=== PATIENT | female | born 1950 | race Caucasian/White ===

== ENCOUNTER 2022-07-14 11:30 | Emergency (ER) | payer OTHER ==
--- OUTSIDE RECORDS SUMMARY | 2022-07-14 11:36 | XMS REPORT | Continuity of Care Document ---
:1950 Author Organization [facility] t Address [address] [facility] [address] [place] [id number] Care Team Providers Name Role Phone Elena Darnell Primary Care Physician Shimon Ibarra Attending Clinician Unavailable MYRTLE PEREZ Attending Clinician Unavailable Elisa CLARK, Bolivar Grissom Attending Clinician Cate Paiz LVN Attending Clinician Unavailable SEAN JAIN Attending Clinician Unavailable HILDA GLOVER Attending Clinician Unavailable Only, Ang Db Test Attending Clinician Unavailable Hilda Berumen Attending Clinician Rosa Kingston MA Attending Clinician Unavailable MRYTLE PEREZ M.D. Attending Clinician Unavailable Lab, Adc Fam Pob I Attending Clinician Unavailable Lindy Lau Attending Clinician LINDY SINGH Attending Clinician Unavailable LOVE DAVIDSON Attending Clinician Unavailable Love Davidson PA-C Attending Clinician Payers Payer Name Policy Type Policy Number Effective Date Expiration Date S ource UHC MEDICARE [id number] 2020 ADVANTAGE 00:00:00 [place] [id number] Common [facility] UNITED [id number] 2020 HEALTHCARE 00:00:00 [facility] MEDIC[facility] [id number] 2018 00:00:00 Problems Condition Condition Condition Status Onset Resolution Last Treating Co mments Source Name Details Category Date Date Treatment Clinician Date Hyperlipid Hyperlipid Disease Active 2019-05 M ethodi emia emia 05-15 st 00:00: Hospita 00 l SOB SOB Disease Active 2017-05 Methodi (shortness (shortness 05-18 st of breath) of breath) 00:00: Ho spita 00 l Chest pain Chest pain Disease Active 2017-05 M ethodi 05-18 st 00:00: Hospita 00 l Essential Essential Disease Active 2017-05 Met hodi hypertensi hypertensi 05-18 st on on 00:00: Hospita 00 l Irregular Irregular Disease Active 2016-05 Met hodi heart beat heart beat 14 st 00:00: Hospita 00 l Right hand Right hand Disease Active U nivers pain pain 1-12 ity of 00:00: [address] Branch [id number] Hip pain, Problem Active Comm on left [facility] [id number] Hip pain, Problem Active Co mmon [id number] right [facility] [id number] Dysfunctio Problem Active C ommon [id number] n of left [facility] eustachian - [facility] tube [facility] [id number] Left ear Problem Active Commo n pain [facility] History of History of Problem Resolve UT Obstructiv Obstructiv d Ph ysici e sleep e sleep ans apnea, apnea, adult adult Inflammato Inflammato Problem Active U T ry ry Physici polyarthri polyarthri an s tis tis Vitamin D Vitamin D Problem Active UT deficiency deficiency Ph ysici disease disease ans GERD GERD Problem Active UT (gastroeso (gastroeso Ph ysici phageal phageal ans reflux reflux disease) disease) Hypothyroi Hypothyroi Problem Active U T dism dism Physici ans Hypertensi Hypertensi Problem Active U T on on Physici ans Obesity Obesity Problem Active UT Physici ans Trochanter Trochanter Problem Active U T ic ic Physici bursitis bursitis ans Psoriasis Psoriasis Problem Active UT of nail of nail Physici ans NSAID NSAID Problem Active UT long-term long-term Phys ici use use ans Long-term Long-term Problem Active UT use of use of Physici immunosupp immunosupp an s ressant ressant medication medication Primary Primary Problem Active UT osteoarthr osteoarthr Ph ysici itis of itis of ans both knees both knees Psoriatic Psoriatic Problem Active UT arthritis arthritis Phys ici ans 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 Physic i ans Lumbago Lumbago Problem Active UT Physici ans Pain of Pain of Problem Active UT toe of toe of Physici right foot right foot an s Allergies, Adverse Reactions, Alerts Allergy Allergy Status Severity Reaction(s) Onset Inactive Treating Comm ents Source Name Type Date Date Clinician Sulfa Allergy Active Unknown UT Antibiot to 2 Health ics substanc 00:00: e 00 Ciproflo Allergy Active Unknown 2016-05 UT xacin to 05-26 Health substanc 00:00: e 00 Ciproflo Propensi Active 2016-05 Method i xacin ty to 14 st adverse 00:00: Hospita reaction 00 l s to drug SULFA Drug Active Rash [facility] (SULFONA Class 1-12 ity of MIDE 00:00: [place] ANTIBIOT 00 [facility]) Branch Sulfa Propensi Active Rash Univers (Sulfona ty to 1-12 ity of mide adverse 00:00: [place] Antibiot reaction 00 Medica l ics) s Branch Sulfa Propensi Active Rash Methodi (Sulfona ty to 08-10 st mide adverse 00:00: Hospita Antibiot reaction 00 l ics) s to drug 0 Drug Active Unknown Common allergy [facility] ciproflo ciproflo Active Unknown Commo n xacin xacin [facility] Sulfa Allergy Active UT Drugs to drug Physici (finding ans ) Family History Family Member Diagnosis Comments Start Date Stop Date Source Natural father Heart disease [facility] Natural father Hypertension [facility] Natural mother Diabetes [facility] Natural mother Hypertension [facility] Social History Social Habit Start Date Stop Date Quantity Comments Source [facility] - [facility] Use [facility] Tobacco use and 2022-04-27 2022-04-27 Smokeless tobacco [facility] exposure 00:00:00 00:00:00 non-user Exposure to 2022-04-15 2022-04-25 Not sure [facility] SARS-CoV-2 00:00:00 08:06:00 (event) Alcohol intake 2022-03-13 2022-03-13 Current [facility] 00:00:00 00:00:00 non-drinker of Hospital alcohol (finding) Sex Ass[birth year] [facility] 00:00:00 00:00:00 [facility] Smoking Status Start Date Stop Date Source Never smoked tobacco [facility] Medications Ordered Filled Start Stop Current Ordering Indication Dosage Frequency Signature Comments Components Source Medication Medication Date Date Medication? Clinician (SIG) Name Name cetirizine 2021-05 QD Chew 1 UT (ZyrTEC) 10 2-16 16 (one) time H ealth MG chewable 10:34: 00:00 each day. tablet 11 :00 SUPER B 2021-05 Yes QD Take by UT COMPLEX & C 2-16 mouth 1 Healt h tablet 10:02: (one) time 33 each day. cycloSPORIN 2021-05 Yes Q12H every 12 UT E 2-16 (twelve) Health (Restasis) 10:02: hours. Use 0.05 % 33 as ophthalmic directed emulsion dexlansopra 2021-05 Yes 1 (one) UT zole 2-16 time each Health (Dexilant) 10:02: day at the [address] 33 same time. capsule 1 capsule daily levothyroxi 2021-05 Yes 1 (one) UT ne 2-16 time each Health (Synthroid, 10:02: day at the Levoxyl) 33 same time. 175 MCG 1 tablet tablet daily losartan 2021-05 Yes 1 (one) UT (Cozaar) 25 2-16 time each Hea lth MG tablet 10:02: day at the 33 same time. 1 tablet daily Mirabegron 2021-05 Yes 1 (one) UT ER 2-16 time each Health (Myrbetriq) 10:02: day at the 50 MG 33 same time. tablet 1 tablet sustained-r daily elease 24 hour Zinc 50 MG 2021-05 Yes 50mg 50 mg. 1 UT tablet 2-16 tablet Health 10:02: daily 33 Vitamin D, 2021-05 Yes Take by UT Cholecalcif 2-16 mouth. 4 Heal th alina, 25 10:02: tablets MCG (1000 33 daily UT) tablet MAGNESIUM 2021-05 Yes QD 1 (one) UT PO 2-16 time each Health 10:02: day. 2 33 tablets daily Ascorbic 2021-05 Yes 500mg QD Take 500 UT Acid 2-16 mg by Health (vitamin C) 10:02: mouth 1 500 MG 33 (one) time tablet each day. cetirizine 2021-05 Yes 10mg QD Take 10 mg U T (ZyrTEC) 10 2-16 by mouth 1 He alth MG tablet 10:02: (one) time 33 each day. methotrexat 2021-05 Yes [id number] 10mg Take 4 UT e 2.5 MG 2-16 tablets Health tablet 00:00: (10 mg 00 total) by mouth 1 (one) time per week. meloxicam 2021-05 Yes [id number] 15mg QD Take 1 U T (Mobic) 15 2-16 tablet (15 Hea lth MG tablet 00:00: mg total) 00 by mouth 1 (one) time each day. with food Upadacitini 2021-05 Yes [id number] 15mg QD Take 15 mg UT b ER 2-16 by mouth 1 Health (Rinvoq) 15 00:00: (one) time MG tablet 00 each day. sustained-r elease 24 hour folic acid 2021-05- Yes [id number] 1mg QD Take 1 UT (Folvite) 1 2-16 12-17 tablet (1 He alth MG tablet 00:00: 05:59 mg total) 00 :00 by mouth 1 (one) time each day. TURMERIC 2021-05- No Take by Metho di ROOT 05-[address] EXTRACT 10:01: 00:00 Hospita ORAL 34 :00 l flaxseed 2021-05- No Take by Metho di oil 1,000 05-[address] mg capsule 10:01: 00:00 Hospit a 34 :00 l cetirizine 2021-05 Yes 10mg QD Take 1 Metho di (ZyrTEC) 10 05-13 tablet (10 st MG tablet 09:13: mg total) Hos forrest 47 by mouth l daily. mirabegron 2021-05 Yes 75mg QD Take 75 mg M ethodi (Myrbetriq) 05-[address] 50 mg 09:13: daily. Hospita tablet 47 l extended release 24 hr VITAMIN B 2021-05 Yes Take by Metho di COMPLEX VIT 05-[address] C NO.4 09:12: Hospita (SUPER B 37 l COMPLEX + C ORAL) CYANOCOBALA 2021-05 Yes Take by Met hodi MIN, 05-[address] VITAMIN 09:12: Hospita B-12, 37 l (VITAMIN B-12 ORAL) upadacitini 2021-05 Yes 15mg QD Take 15 mg Methodi b (Rinvoq) 05-[address] 15 mg 09:12: daily. Hospita tablet 37 l extended release 24 hr ER tablet meloxicam 2021- No [id number] TAKE 1 UT (Mobic) 15 02-05 12-16 TABLET BY Hea lth MG tablet 00:00: 00:00 MOUTH 00 :00 EVERY DAY WITH FOOD cycloSPORIN Yes Q12H every 12 UT E 8-15 (twelve) Health (Restasis) 13:53: hours. Use 0.05 % 12 as ophthalmic directed emulsion SUPER B Yes QD Take by UT COMPLEX & C 8-15 mouth 1 Healt h tablet 13:52: (one) time 32 each day. dexlansopra Yes 1 (one) UT zole 8-15 time each Health (Dexilant) 13:52: day at the [address] 32 same time. capsule 1 capsule daily levothyroxi Yes 1 (one) UT ne 8-15 time each Health (Synthroid, 13:52: day at the Levoxyl) 32 same time. 175 MCG 1 tablet tablet daily losartan Yes 1 (one) UT (Cozaar) 25 8-15 time each Hea lth MG tablet 13:52: day at the 32 same time. 1 tablet daily Mirabegron Yes 1 (one) UT ER 8-15 time each Health (Myrbetriq) 13:52: day at the 50 MG 32 same time. tablet 1 tablet sustained-r daily elease 24 hour Zinc 50 MG Yes 50mg 50 mg. 1 UT tablet 8-15 tablet Health 13:52: daily 32 Vitamin D, 0 Yes Take by UT Cholecalcif 8-15 mouth. 4 Heal th alina, 25 13:52: tablets MCG (1000 32 daily UT) tablet MAGNESIUM 2021-0 Yes QD 1 (one) UT PO 8-15 time each Health 13:52: day. 2 32 tablets daily cetirizine 0 Yes QD Chew 1 UT (ZyrTEC) 10 8-15 (one) time He alth MG chewable 13:52: each day. tablet 32 Ascorbic Yes 500mg QD Take 500 UT Acid 8-15 mg by Health (vitamin C) 13:52: mouth 1 500 MG 32 (one) time tablet each day. Upadacitini Yes [id number] 15mg QD Take 15 mg UT b ER 8-15 by mouth 1 Health (Rinvoq) 15 00:00: (one) time MG tablet 00 each day. sustained-r elease 24 hour Upadacitini 2- No [id number] 15mg QD Take 15 mg UT b ER 8-15 12-16 by mouth 1 Health (Rinvoq) 15 00:00: 00:00 (one) time MG tablet 00 :00 each day. sustained-r elease 24 hour doxycycline 2- No [id number] 100mg Q.5D Take 1 UT (Vibramycin 8-15 08-23 capsule ) 100 MG 00:00: 04:59 (100 mg capsule 00 :00 total) by mouth in the morning and 1 capsule (100 mg total) in the evening. Do all this for 7 days. metFORMIN 2021-0 Yes QD 1 (one) UT XR 8-08 time each Health (Glucophage 00:00: day. -XR) 500 MG 00 24 hr tablet metFORMIN 2021-0 Yes QD 1 (one) UT XR 8-08 time each Health (Glucophage 00:00: day. -XR) 500 MG 00 24 hr tablet Secukinumab Yes [id number] Inject 300 UT , 300 MG 7-27 mg Health Dose, 00:00: subcutaneo (Cosentyx 00 us q4 Sensoready, weeks 300 MG,) 150 MG/ML solution auto-inject or Secukinumab 2-0 Yes [id number] Inject 300 UT , 300 MG 7-27 mg Health Dose, 00:00: subcutaneo (Cosentyx 00 us q4 Sensoready, weeks 300 MG,) 150 MG/ML solution auto-inject or Secukinumab 2-0 Yes [id number] Inject 300 UT , 300 MG 7-03 mg Health Dose, 00:00: subcutaneo (Cosentyx 00 us q4 Sensoready, weeks 300 MG,) 150 MG/ML solution auto-inject or meloxicam 2021-0 Yes [id number] TAKE 1 U T (Mobic) 15 6-25 TABLET BY Heal th MG tablet 00:00: MOUTH 00 EVERY DAY WITH FOOD meloxicam 2021-0 Yes TAKE 1 U T (Mobic) 15 6-25 TABLET BY Heal th MG tablet 00:00: MOUTH 00 EVERY DAY WITH FOOD cetirizine 2021-0 Yes QD Chew 1 UT (ZyrTEC) 10 4-07 (one) time He alth MG chewable 11:51: each day. tablet 36 Ascorbic 2021-0 Yes 500mg QD Take 500 UT Acid 4-07 mg by Health (vitamin C) 11:51: mouth 1 500 MG 36 (one) time tablet each day. cetirizine 2-0 Yes QD Chew 1 UT (ZyrTEC) 10 4-07 (one) time He alth MG chewable 11:51: each day. tablet 36 Ascorbic 2022-0 Yes 500mg QD Take 500 UT Acid 4-07 mg by Health (vitamin C) 11:51: mouth 1 500 MG 36 (one) time tablet each day. SUPER B 2021-0 Yes QD Take by UT COMPLEX & C 4-07 mouth 1 Healt h tablet 11:50: (one) time 51 each day. Mirabegron 2-0 Yes 1 (one) UT ER 4-07 time each Health (Myrbetriq) 11:50: day at the 50 MG 51 same time. tablet 1 tablet sustained-r daily elease 24 hour Zinc 50 MG 2021-0 Yes 50mg 50 mg. 1 UT tablet 4-07 tablet Health 11:50: daily 51 Vitamin D, 2022-0 Yes Take by UT Cholecalcif 4-07 mouth. 4 alina, 11:50: tablets MCG (1000 51 daily UT) tablet SUPER B 0 Yes QD Take by UT COMPLEX & C 4-07 mouth 1 Healt h tablet 11:50: (one) time 51 each day. Mirabegron 0 Yes 1 (one) UT ER 4-07 time each Health (Myrbetriq) 11:50: day at the 50 MG 51 same time. tablet 1 tablet sustained-r daily elease 24 hour Zinc 50 MG Yes 50mg 50 mg. 1 UT tablet 4-07 tablet Health 11:50: daily 51 Vitamin D, Yes Take by UT Cholecalcif 4-07 mouth. 4 alina, 11:50: tablets MCG (1000 51 daily UT) tablet cycloSPORIN 0 Yes Q12H every 12 UT E 4-07 (twelve) Health (Restasis) 11:49: hours. Use 0.05 % 16 as ophthalmic directed emulsion dexlansopra 0 Yes 1 (one) UT zole 4-07 time each Health (Dexilant) 11:49: day at the [address] 16 same time. capsule 1 capsule daily levothyroxi 0 Yes 1 (one) UT ne 4-07 time each Health (Synthroid, 11:49: day at the Levoxyl) 16 same time. 175 MCG 1 tablet tablet daily losartan Yes 1 (one) UT (Cozaar) 25 4-07 time each Hea lth MG tablet 11:49: day at the 16 same time. 1 tablet daily MAGNESIUM 0 Yes 2 tablets UT PO 4-07 daily Health 11:49: 16 cycloSPORIN 2021-0 Yes Q12H every 12 UT E 4-07 (twelve) Health (Restasis) 11:49: hours. Use 0.05 % 16 as ophthalmic directed emulsion dexlansopra 0 Yes 1 (one) UT zole 4-07 time each Health (Dexilant) 11:49: day at the [address] 16 same time. capsule 1 capsule daily levothyroxi 2021-0 Yes 1 (one) UT ne 4-07 time each Health (Synthroid, 11:49: day at the Levoxyl) 16 same time. 175 MCG 1 tablet tablet daily losartan Yes 1 (one) UT (Cozaar) 25 4-07 time each Hea lth MG tablet 11:49: day at the 16 same time. 1 tablet daily MAGNESIUM 0 Yes 2 tablets UT PO 4-07 daily Health 11:49: 16 meloxicam 0 Yes [id number] TAKE 1 U T (Mobic) 15 3-25 TABLET BY [facility] th MG tablet 00:00: MOUTH 00 EVERY DAY WITH FOOD Mirabegron 2021-0 Yes QD 1 (one) UT ER 2-19 time each Health (Myrbetriq) 00:00: day. 25 MG 00 tablet sustained-r elease 24 hour Mirabegron 2021-0 Yes QD 1 (one) UT ER 2-19 time each Health (Myrbetriq) 00:00: day. 25 MG 00 tablet sustained-r elease 24 hour Mirabegron 2021-0 Yes QD 1 (one) UT ER 2-19 time each Health (Myrbetriq) 00:00: day. 25 MG 00 tablet sustained-r elease 24 hour Mirabegron 2021-0 Yes QD 1 (one) UT ER 2-19 time each Health (Myrbetriq) 00:00: day. 25 MG 00 tablet sustained-r elease 24 hour alpha 2021- No 1000U Take 1,000 UT tocopherol -10 11-06 Units by [facility] th (Vitamin E) 09:07: 00:00 mouth. 1 1000 units 55 :00 capsule capsule daily calcium 0 2021- No 1 tablet UT carbonate 05-18- daily Health (Os-Ibeth) 09:07: 00:00 600 MG 45 :00 tablet SUPER B Yes Take by UT COMPLEX & C -06 mouth. As Hea lth tablet 08:42: needed 16 cycloSPORIN 0 Yes Q12H every 12 UT E 1-06 (twelve) Health (Restasis) 08:42: hours. Use 0.05 % 16 as ophthalmic directed emulsion dexlansopra 0 Yes 1 (one) UT zole 1-06 time each Health (Dexilant) 08:42: day at the [address] 16 same time. capsule 1 capsule daily levothyroxi 2022-0 Yes 1 (one) UT ne 1-06 time each Health (Synthroid, 08:42: day at the Levoxyl) 16 same time. 175 MCG 1 tablet tablet daily losartan 0 Yes 1 (one) UT (Cozaar) 25 1-06 time each Hea lth MG tablet 08:42: day at the 16 same time. 1 tablet daily Mirabegron 0 Yes 1 (one) UT ER 1-06 time each Health (Myrbetriq) 08:42: day at the 50 MG 16 same time. tablet 1 tablet sustained-r daily elease 24 hour Zinc 50 MG Yes 50mg 50 mg. 1 UT tablet 1-06 tablet Health 08:42: daily 16 Vitamin D, 0 Yes Take by UT Cholecalcif 1-06 mouth. 4 Heal th alina, 25 08:42: tablets MCG (1000 16 daily UT) tablet MAGNESIUM Yes Take by UT PO 1-06 mouth. 3 Health 08:42: tablets 16 daily Secukinumab 0 Yes [id number] Inject 300 UT , 300 MG 1-06 mg Health Dose, 00:00: subcutaneo (Cosentyx 00 us week Sensoready, 0,1, 2, 3, 300 MG,) 4 then 300 150 MG/ML mg solution subcutaneo auto-inject us q4 or weeks thereafter Secukinumab 2021-0 Yes [id number] Inject 300 UT , 300 MG 1-06 mg Health Dose, 00:00: subcutaneo (Cosentyx 00 us week Sensoready, 0,1, 2, 3, 300 MG,) 4 then 300 150 MG/ML mg solution subcutaneo auto-inject us q4 or weeks thereafter Secukinumab 2021-0 2- No [id number] Inject 300 UT , 300 MG 1-06 07-03 mg Health Dose, 00:00: 00:00 subcutaneo (Cosentyx 00 :00 us week Sensoready, 0,1, 2, 3, 300 MG,) 4 then 300 150 MG/ML mg solution subcutaneo auto-inject us q4 or weeks thereafter meloxicam 2020-05 Yes [id number] TAKE 1 U T (Mobic) 15 2-13 TABLET BY Heal th MG tablet 00:00: MOUTH 00 EVERY DAY WITH FOOD meloxicam 2020-05 Yes [id number] TAKE 1 U T (Mobic) 15 2-13 TABLET BY Heal th MG tablet 00:00: MOUTH 00 EVERY DAY WITH FOOD Upadacitini 2020-05- No [id number] 15mg QD Take 15 mg UT b ER 0-19 01-18 by mouth 1 Health (Rinvoq) 15 00:00: 05:59 (one) time MG tablet 00 :00 each day. sustained-r elease 24 hour Upadacitini 2020-05- No [id number] 15mg QD Take 15 mg UT b ER 0-19 01-18 by mouth 1 Health (Rinvoq) 15 00:00: 05:59 (one) time MG tablet 00 :00 each day. sustained-r elease 24 hour Upadacitini 2020-05- No [id number] 15mg QD Take 15 mg UT b ER 0-19 01-18 by mouth 1 Health (Rinvoq) 15 00:00: 05:59 (one) time MG tablet 00 :00 each day. sustained-r elease 24 hour Upadacitini 2020- No [id number] 15mg QD Take 15 mg UT b ER 7-16 10-19 by mouth 1 Health (Rinvoq) 15 00:00: 00:00 (one) time MG tablet 00 :00 each day. sustained-r elease 24 hour SUPER B Yes Take by UT COMPLEX & C 7 mouth. As Hea lth tablet 09:31: needed 54 calcium Yes 1 tablet UT carbonate 11-10 daily Health (Os-Ibeth) 09:31: 600 MG 54 tablet cycloSPORIN Yes Q12H every 12 UT E 7- (twelve) Health (Restasis) 09:31: hours. Use 0.05 % 54 as ophthalmic directed emulsion dexlansopra Yes 1 (one) UT zole 7- time each Health (Dexilant) 09:31: day at the [address] 54 same time. capsule 1 capsule daily levothyroxi Yes 1 (one) UT ne 7- time each Health (Synthroid) 09:31: day at the 175 MCG 54 same time. tablet 1 tablet daily losartan 2020-0 Yes 1 (one) UT (Cozaar) 25 - time each Hea lth MG tablet 09:31: day at the 54 same time. 1 tablet daily Mirabegron 2020-0 Yes 1 (one) UT ER 7- time each Health (Myrbetriq) 09:31: day at the 50 MG 54 same time. tablet 1 tablet sustained-r daily elease 24 hour alpha 2020-0 Yes 1000U Take 1,000 UT tocopherol [facility] 09:31: mouth. 1 1000 units 54 capsule capsule daily Zinc 50 MG 2020-0 Yes 50mg 50 mg. 1 UT tablet 11-10 tablet Health 09:31: daily 54 Vitamin D, 2020-0 Yes Take by UT Cholecalcif - mouth. 4 Heal th alina, 25 09:31: tablets MCG (1000 54 daily UT) tablet MAGNESIUM 0 Yes Take by UT PO 7- mouth. 3 Health 09:31: tablets 54 daily SUPER B 0 Yes Take by UT COMPLEX & C 7 mouth. As Hea lth tablet 09:31: needed 54 calcium 2020-0 Yes 1 tablet UT carbonate 11-10 daily Health (Os-Ibeth) 09:31: 600 MG 54 tablet cycloSPORIN 2020-0 Yes Q12H every 12 UT E 11-10 (twelve) Health (Restasis) 09:31: hours. Use 0.05 % 54 as ophthalmic directed emulsion dexlansopra 2020-0 Yes 1 (one) UT zole 11-10 time each Health (Dexilant) 09:31: day at the [address] 54 same time. capsule 1 capsule daily levothyroxi 2020-0 Yes 1 (one) UT ne 7 time each Health (Synthroid) 09:31: day at the 175 MCG 54 same time. tablet 1 tablet daily losartan 2020-0 Yes 1 (one) UT (Cozaar) 25 11-10 time each Hea lth MG tablet 09:31: day at the 54 same time. 1 tablet daily Mirabegron 2020-0 Yes 1 (one) UT ER 7- time each Health (Myrbetriq) 09:31: day at the 50 MG 54 same time. tablet 1 tablet sustained-r daily elease 24 hour alpha Yes 1000U Take 1,000 UT tocopherol 7-01 Units by Healt h (Vitamin E) 09:31: mouth. 1 1000 units 54 capsule capsule daily Zinc 50 MG Yes 50mg 50 mg. 1 UT tablet 7- tablet Health 09:31: daily 54 Vitamin D, 0 Yes Take by UT Cholecalcif 7- mouth. 4 Heal alina, 09:31: tablets MCG (1000 54 daily UT) tablet MAGNESIUM Yes Take by UT PO 7- mouth. 3 Health 09:31: tablets 54 daily meloxicam 0 Yes 15mg QD Take 15 mg UT (Mobic) 15 4-25 by mouth 1 Hea lth MG tablet 00:00: (one) time 00 each day. 1 tablet daily meloxicam 2020- No 15mg QD Take 15 mg U T (Mobic) 15 4-25 12-13 by mouth 1 He alth MG tablet 00:00: 00:00 (one) time 00 :00 each day. 1 tablet daily Premarin Yes Use as UT vaginal 4-22 directed Health cream 00:00: 00 Premarin 2020-0 Yes Use as UT vaginal 4-22 directed Health cream 00:00: 00 Premarin 2020-0 2021- No Use as UT vaginal 4-22 01-06 directed Health cream 00:00: 00:00 00 :00 Diclofenac 2020-0 Yes As needed UT Sodium 3-18 Health (Voltaren) 00:00: 1 % 00 external gel Diclofenac 2020-0 Yes As needed UT Sodium 3-18 Health (Voltaren) 00:00: 1 % 00 external gel Diclofenac 2020-0 Yes As needed UT Sodium 3-18 Health (Voltaren) 00:00: 1 % 00 external gel Diclofenac 2020-0 Yes As needed UT Sodium 3-18 Health (Voltaren) 00:00: 1 % 00 external gel Diclofenac 2020-0 Yes As needed UT Sodium 3-18 Health (Voltaren) 00:00: 1 % 00 external gel Diclofenac 2020-0 Yes As needed UT Sodium 3-18 Health (Voltaren) 00:00: 1 % 00 external gel Diclofenac 2020-0 Yes As needed UT Sodium 3-18 Health (Voltaren) 00:00: 1 % 00 external gel Rinvoq 15 Rinvoq 15 2020-1 Yes MYRTLE 1 QD TAKE 1 UT MG Oral MG Oral 1-16 PEREZ TABLET Physi ci Tablet Tablet 00:00: M.D. DAILY ans Extended Extended 00 Release 24 Release 24 Hour Hour fluticasone 2020-1 Yes Q12H every 12 UT (Flovent 0-26 (twelve) Health Diskus) 250 00:00: hours. As MCG/BLIST 00 needed diskus inhaler fluticasone 2020-1 Yes Q12H every 12 UT (Flovent 0-26 (twelve) Health Diskus) 250 00:00: hours. As MCG/BLIST 00 needed diskus inhaler fluticasone 2020-1 Yes Q12H every 12 UT (Flovent 0-26 (twelve) Health Diskus) 250 00:00: hours. As MCG/BLIST 00 needed diskus inhaler fluticasone 2020-1 Yes Q12H every 12 UT (Flovent 0-26 (twelve) Health Diskus) 250 00:00: hours. As MCG/BLIST 00 needed diskus inhaler fluticasone 2020-1 Yes Q12H every 12 UT (Flovent 0-26 (twelve) Health Diskus) 250 00:00: hours. As MCG/BLIST 00 needed diskus inhaler fluticasone 2020-1 Yes Q12H every 12 UT (Flovent 0-26 (twelve) Health Diskus) 250 00:00: hours. As MCG/BLIST 00 needed diskus inhaler fluticasone 2020-1 Yes Q12H every 12 UT (Flovent 0-26 (twelve) Health Diskus) 250 00:00: hours. As MCG/BLIST 00 needed diskus inhaler Flovent 2020-1 Yes INHALE BY Metho di Diskus 250 0-[address] mcg/actuati 00:00: 2 TIMES [facility]rest on blister 00 DAILY l with device DIRECTED albuterol 2020-1 Yes prn UT 108 (90 0-21 Health Base) 00:00: MCG/ACT 00 inhaler albuterol 2020-1 Yes prn UT 108 (90 0-21 Health Base) 00:00: MCG/ACT 00 inhaler albuterol 2020-1 Yes prn UT 108 (90 0-21 Health Base) 00:00: MCG/ACT 00 inhaler albuterol 2020-1 Yes prn UT 108 (90 0-21 Health Base) 00:00: MCG/ACT 00 inhaler albuterol 2020-1 Yes prn UT 108 (90 0-21 Health Base) 00:00: MCG/ACT 00 inhaler albuterol 2020-1 Yes prn UT 108 (90 0-21 Health Base) 00:00: MCG/ACT 00 inhaler albuterol 2020-1 Yes prn UT 108 (90 0-21 Health Base) 00:00: MCG/ACT 00 inhaler albuterol 2020-1 Yes 2{puff} Inhale 2 M ethodi (PROAIR 0-[address] HFA) 90 00:00: Hospita mcg/actuati 00 l on inhaler meloxicam 2020-1 Yes 15mg QD Take 15 mg Me thodi (MOBIC) 15 0-[address] mg tablet 00:00: daily. Hospit a 00 with food l - Icosapent 2020-0 Yes Q12H every 12 UT Ethyl 8-02 (twelve) Health (Vascepa) 1 00:00: hours. 2 g capsule 00 capsules daily Icosapent 2020-0 Yes Q12H every 12 UT Ethyl 8-02 (twelve) Health (Vascepa) 1 00:00: hours. 2 g capsule 00 capsules daily Icosapent 2020-0 Yes Q12H every 12 UT Ethyl 8-02 (twelve) Health (Vascepa) 1 00:00: hours. 2 g capsule 00 capsules daily Icosapent 2020-0 Yes Q12H every 12 [facility] Ethyl 8-02 (twelve) [facility] ([facility]as[facility]) 1 00:00: hours. 2 g capsule 00 capsules daily Icosapent 2020-0 Yes Q12H every 12 [facility] Ethyl 8-02 (twelve) Health (Vascepa) 1 00:00: hours. 2 g capsule 00 capsules daily Icosapent 2020-0 Yes Q12H every 12 [facility] Ethyl 8-02 (twelve) Health (Vascepa) 1 00:00: hours. 2 g capsule 00 capsules daily Icosapent 2020-0 Yes Q12H every 12 [facility] Ethyl 8-02 (twelve) [facility] (Vascepa) 1 00:00: hours. 2 g capsule 00 capsules daily [facility] 1 2020-0 Yes TAKE 2 Method i gram 8-[address] capsule 00:00: BY MOUTH Hospit a 00 TWICE A l DAY WITH MEALS SYNTHROID 2016-05 Yes Methodi 175 mcg 1-13 st tablet 00:00: Hospita 00 l DEXILANT 60 2016-05 Yes 60mg QD Take 1 Meth natasha mg capsule 1-[address] 00:00: mouth once Hospita 00 daily. l RESTASIS 2016-05 Yes INSTILL 1 Meth natasha 0.05 % 0-[address] ophthalmic 00:00: EACH EYE [facility] emulsion 00 TWICE l DAILY losartan Yes 25mg QD Take 25 mg Met hodi (COZAAR) 25 9-[address] MG tablet 00:00: once Hospita 00 daily. l Meloxicam Meloxicam Yes MYRTLE TAKE 1 UT 15 MG Oral 15 MG Oral 9-14 PEREZ TABLET BY [facility] Tablet Tablet 00:00: M.D. MOUTH ans 00 EVERY DAY WITH FOOD vitamin E Yes 1000U Take 1,000 U nivers 1,000 unit 1-26 Units by ity o f capsule 14:56: mouth [place] [address] daily. Medical Branch flaxseed Yes Take by Univer s 1,000 mg 1-26 mouth. ity of Cap 14:56: [place] [address] Medical Branch GLUC Yes Take by Univers HCL/GLUC 1-26 mouth. ity of BARBOSA/AC-ALP-D 14:56: [place] -GLUC 48 Medical (GLUCOSAMIN Branch E COMPLEX ORAL) levothyroxi Yes 150ug Take 150 U nivers ne 1-26 mcg by ity of (SYNTHROID) 14:56: mouth [place] 150 mcg 48 every Medical tablet morning. Branch aspirin Yes 81mg Take 81 mg Univ ers (ASPIR-LOW) 1-26 by mouth ity of 81 mg EC 14:56: daily. [place] [address] Medical Branch traMADOL 50 Yes 50mg Take 50 mg Univers mg tablet -26 by mouth ity of 14:56: every 6 [place] [address] (six) Medical hours as Branch needed. CYANOCOBALA Yes Place Unive rs MIN/COBAMAM 1-26 under the ity of DENYS (B12 14:56: tongue. [facility]) Medical Branch Cranberry Yes Take by Unive rs 400 mg Cap 1-26 mouth. ity of 14:56: [place] [address] Medical Branch Vitamin B Yes [facility] by [facility] Comp & C - mouth. ity of No.4 (SUPER 14:56: [place] B COMPLEX + 48 Medical C) 150 mg Branch Tab CALCIUM Yes Take by [facility] CARB/MAGNES - mouth. ity of IUM CARB 14:56: [place] (CALCIUM & 48 Medical MAGNESIUM Branch CARBONATES ORAL) B Yes Take by [facility] INFANTIS/B - mouth. ity of ANI/B ELHAM/B 14:56: [place] BIFID Medical (PROBIOTIC Branch 4X ORAL) DOCOSAHEXAN Yes Take by [facility] vers OIC 06-07 mouth. ity of ACID/EPA 14:56: [place] (FISH OIL 48 Medical ORAL) Branch CINNAMON Yes Take by [facility] s BARK 06-07 mouth. ity of (CINNAMON 14:56: [place] ORAL) Medical Branch vitamin E Yes 1000U Take 1,000 U nivers 1,000 unit 06-07 Units by ity o f capsule 14:56: mouth [place] [address] daily. Medical Branch flaxseed Yes Take by [facility] s 1,000 mg - mouth. ity of Cap 14:56: [place] [address] Medical Branch GLUC Yes Take by [facility] HCL/GLUC 06-07 mouth. ity of BARBOSA/AC-ALP-D [facility]:56[facility] E COMPLEX ORAL) levothyroxi Yes 150ug Take 150 U nivers ne - mcg by ity of (SYNTHROID) 14:56: mouth [place] 150 mcg 48 every Medical tablet morning. Branch aspirin Yes 81mg Take 81 mg Univ ers (ASPIR-LOW) 06-07 by mouth ity of 81 mg EC 14:56: daily. [place] tablet Medical Branch traMADOL 50 Yes 50mg Take 50 mg Univers mg tablet 06-07 by mouth ity of 14:56: every 6 [place] [address] (six) Medical hours as Branch needed. CYANOCOBALA Yes Place [facility] rs MIN/COBAMAM 06-07 under the ity of DENYS (B12 14:56: tongue. [place] SL) Medical Branch Cranberry Yes Take by [facility] rs 400 mg Cap - mouth. ity of 14:56: [place] [address] Medical Branch Vitamin B Yes Take by [facility] rs Comp & C - mouth. ity of No.4 (SUPER 14:56: [place] B COMPLEX + 48 Medical C) 150 mg Branch Tab CALCIUM Yes Take by [facility] CARB/MAGNES - mouth. ity of IUM CARB 14:56: [place] (CALCIUM & 48 Medical MAGNESIUM Branch CARBONATES ORAL) B Yes Take by [facility] INFANTIS/B - mouth. ity of ANI/B ELHAM/B 14:56: [place] BIFID Medical (PROBIOTIC Branch 4X ORAL) DOCOSAHEXAN Yes Take by [facility] vers OIC 06-07 mouth. ity of ACID/EPA 14:56: [place] (FISH OIL 48 Medical ORAL) Branch CINNAMON Yes Take by [facility] s BARK - mouth. ity of (CINNAMON 14:56: [facility]) Medical Branch vitamin E Yes 1000U Take 1,000 U nivers 1,000 unit 06-07 Units by ity o f capsule 14:56: mouth [place] [address] daily. Medical Branch flaxseed Yes Take by [facility] 1,000 mg - mouth. ity of Cap 14:56: [place] [address] Medical Branch GLUC Yes Take by [facility] HCL/GLUC 06-07 mouth. ity of BARBOSA/AC-ALP-D 14:56: [facility] (GL[facility] Branch E COMPLEX ORAL) levothyroxi Yes 150ug Take 150 U nivers ne 1-26 mcg by ity of (SYNTHROID) 14:56: mouth [place] 150 mcg 48 every Medical tablet morning. Branch aspirin Yes 81mg Take 81 mg [facility] ers (ASPIR-LOW) 06-07 by mouth ity of 81 mg EC 14:56: daily. [place] tablet Medical Branch traMADOL 50 Yes 50mg Take 50 mg Univers mg tablet 06-07 by mouth ity of 14:56: every 6 [place] [address] (six) Medical hours as Branch needed. CYANOCOBALA Yes Place [facility] rs MIN/COBAMAM 06-07 under the ity of DENYS (B12 14:56: tongue. [facility]) 48 Medical Branch Cranberry Yes Take by [facility] rs 400 mg Cap - mouth. ity of 14:56: [place] [address] Medical Branch Vitamin B Yes Take by [facility] rs Comp & C - mouth. ity of No.4 (SUPER 14:56: [place] B COMPLEX + 48 Medical C) 150 mg Branch Tab CALCIUM Yes Take by [facility] CARB/MAGNES - mouth. ity of IUM CARB 14:56: [place] (CALCIUM & 48 Medical MAGNESIUM Branch CARBONATES ORAL) B Yes Take by [facility] INFANTIS/B - mouth. ity of ANI/B ELHAM/B 14:56: [place] BIFID Medical (PROBIOTIC Branch 4X ORAL) DOCOSAHEXAN Yes Take by [facility] OIC 06-07 mouth. ity of ACID/EPA 14:56: [place] (FISH OIL 48 Medical ORAL) Branch CINNAMON Yes Take by [facility] s BARK - mouth. ity of (CINNAMON 14:56: [facility]) Medical Branch vitamin E Yes 1000U Take 1,000 U nivers 1,000 unit - Units by ity o f capsule 14:56: mouth [place] [address] daily. Medical Branch flaxseed Yes Take by [facility] 1,000 mg - mouth. ity of Cap 14:56: [place] [address] Medical Branch GLUC Yes Take by [facility] HCL/GLUC 06-07 mouth. ity of BARBOSA/AC-ALP-D 14:56: [facility] (GLUC[facility]IN Branch E COMPLEX ORAL) levothyroxi Yes 150ug Take 150 U nivers ne - mcg by ity of (SYNTHROID) 14:56: mouth [place] 150 mcg 48 every Medical tablet morning. Branch aspirin Yes 81mg Take 81 mg Univ ers (ASPIR-LOW) 06-07 by mouth ity of 81 mg EC 14:56: daily. [place] tablet Medical Branch traMADOL 50 Yes 50mg Take 50 mg Univers mg tablet 06-07 by mouth ity of 14:56: every 6 [place] [address] (six) Medical hours as Branch needed. CYANOCOBALA Yes Place [facility] rs MIN/COBAMAM 06-07 under the ity of DENYS (B12 14:56: tongue. [facility]) 48 Medical Branch Cranberry Yes Take by [facility] rs 400 mg Cap - mouth. ity of 14:56: [place] [address] Medical Branch Vitamin B Yes Take by [facility] rs Comp & C 06-07 mouth. ity of No.4 (SUPER 14:56: [place] B COMPLEX + 48 Medical C) 150 mg Branch Tab CALCIUM Yes Take by [facility] CARB/MAGNES 06-07 mouth. ity of IUM CARB 14:56: [place] (CALCIUM & 48 Medical MAGNESIUM Branch CARBONATES ORAL) B Yes Take by [facility] INFANTIS/B 06-07 mouth. ity of ANI/B ELHAM/B 14:56: [place] BIFID Medical (PROBIOTIC Branch 4X ORAL) DOCOSAHEXAN Yes Take by [facility] vers OIC 06-07 mouth. ity of ACID/EPA 14:56: [place] (FISH OIL 48 Medical ORAL) Branch CINNAMON Yes Take by [facility] s BARK 06-07 mouth. ity of (CINNAMON 14:56: [facility]) 48 Medical Branch diclofenac Yes 75mg Take 1 Unive rs 75 mg EC 1-26 tablet by ity of tablet 00:00: mouth 2 [place] [address] (two) Medical times Branch daily with meals. diclofenac 2016-0 Yes 75mg Take 1 Unive rs 75 mg EC 1-26 tablet by ity of tablet 00:00: mouth 2 [place] [address] (two) Medical times Branch daily with meals. diclofenac 0 Yes 75mg Take 1 Unive rs 75 mg EC 1-26 tablet by ity of tablet 00:00: mouth 2 [place] [address] (two) Medical times Branch daily with meals. diclofenac 2017-0 Yes 75mg Take 1 Unive rs 75 mg EC 1-26 tablet by ity of tablet 00:00: mouth 2 [place] [address] (two) Medical times Branch daily with meals. zolpidem 2017- Yes Place Univers 1.75 mg 1-12 under the ity of Subl 14:14: tongue. [place] [address] Medical Branch zolpidem 2017-[address] [facility] 1.75 mg 1-12 under the ity of Subl 14:14: tongue. [place] [address] Medical Branch zolpidem 2017-[address] [facility] 1.75 mg 1-12 under the ity of Subl 14:14: tongue. [place] [address] Medical Branch zolpidem 2017-[address] Univers 1.75 mg 1-12 under the ity of Subl 14:14: tongue. [place] [address] Medical [place] methylPREDN 2017-0 Yes 84mg Take 21 Uni vers ISolone 1-12 tablets by ity of (MEDROL, 00:00: mouth [place] JOSEPH,) 4 mg 00 SEE-INSTRU Med ical tablets CTIONS. Branch follow package directions methylPREDN 2017-0 Yes 84mg Take 21 Uni vers ISolone 1-12 tablets by ity of (MEDROL, 00:00: mouth [place] JOSEPH,) 4 mg 00 SEE-INSTRU Med ical tablets CTIONS. Branch follow package directions methylPREDN 2017-0 Yes 84mg Take 21 Uni vers ISolone 1-12 tablets by ity of (MEDROL, 00:00: mouth [place] JOSEPH,) 4 mg 00 SEE-INSTRU Med ical tablets CTIONS. Branch follow package directions methylPREDN 2017-0 Yes 84mg Take 21 Uni vers ISolone 1-12 tablets by ity of (MEDROL, 00:00: mouth [place] JOSEPH,) 4 mg 00 SEE-INSTRU Med ical tablets CTIONS. Branch follow package directions replaced by [facility] ansone 2015-05 Yes TK 1 T PO Un chris 750 mg 2-28 BID ity of tablet 00:00: [facility] 2015-05 Yes TK 1 T PO Un chris 750 mg 2-28 BID ity of tablet 00:00: [facility] 2015-05 Yes TK 1 T PO Un chris 750 mg 2-28 BID ity of tablet 00:[facility]: [facility] Yes TK 1 T PO Un chris 750 mg 2-28 BID ity of tablet 00:00: [facility] DEXILANT 60 2015-05 Yes TAKE ONE Un chris mg capsule 2-05 CAPSULE BY ity of 00:00: MOUTH ONE TIME DAILY Medical Branch DEXILANT 60 2015-05 Yes TAKE ONE Un chris mg capsule 2-05 CAPSULE BY ity of 00:00: MOUTH ONE TIME DAILY Medical Branch DEXILANT 60 2015-05 Yes TAKE ONE Un chris mg capsule 2-05 CAPSULE BY ity of 00:00: MOUTH ONE TIME DAILY Medical Branch DEXILANT 60 2015-05 Yes TAKE ONE Un chris mg capsule 2-05 CAPSULE BY ity of 00:00: MOUTH ONE [place] 00 TIME DAILY Medical Branch RESTASIS 2015-05 Yes INT 1 GTT Univ ers 0.05 % 1-23 IN OU BID ity of ophthalmic 00:00: [place] drops 00 Medical Branch RESTASIS 2015-05 Yes INT 1 GTT Univ ers 0.05 % 1-23 IN OU BID ity of ophthalmic 00:00: [place] drops 00 Medical Branch RESTASIS 2015-05 Yes INT 1 GTT Univ ers 0.05 % 1-23 IN OU BID ity of ophthalmic 00:00: [place] drops 00 Medical Branch RESTASIS 2015-05 Yes INT 1 GTT Univ ers 0.05 % 1-23 IN OU BID ity of ophthalmic 00:00: [place] drops 00 Medical Branch Losartan Losartan No Losartan Potassium Potassium Potassium 25 MG 25 MG 25 MG Vitamin B Vitamin B No Vitamin B 12 12 12 [facility] Vascepa No [facility] Biotin 5000 Biotin 5000 No Biotin 5000 Meloxicam Meloxicam No Meloxicam 7.5 MG 7.5 MG 7.5 MG Restasis Restasis No Restasis Medrol 4 MG Medrol 4 MG No Medrol 4 MG Magnesium Magnesium No Magnesium D3 Adult D3 Adult No D3 Adult Gabapentin Gabapentin No Gabapentin 100 MG 100 MG 100 MG Synthroid Synthroid No Synthroid 175 MCG 175 MCG 175 MCG Dexilant 60 Dexilant 60 No Dexilant MG MG 60 MG Synthroid Synthroid Yes [employer] 1 QD TAKE 1 UT 175 MCG 175 MCG TABLET [facility] Oral Tablet Oral Tablet DAILY. ans Dexilant 60 Dexilant 60 Yes [employer] 1 QD TAKE 1 UT MG Oral MG Oral CAPSULE Physic i Capsule Capsule DAILY ans Delayed Delayed Release Release Calcium 600 Calcium 600 Yes [employer] 1 QD TAKE 1 UT MG Oral MG Oral TABLET [facility] Tablet Tablet DAILY. ans Losartan Losartan Yes [employer] 1 QD TAKE 1 UT Potassium Potassium TABLET Phy sici TABS TABS DAILY. ans Vitamin D3 Vitamin D3 Yes [employer] 800 IU 2 X UT CAPS CAPS DAILY Physici ans L-Methylfol L-Methylfol Yes [employer] U T ate TABS ate TABS Physici ans Magnesium Magnesium Yes [employer] UT TABS TABS Physici ans Vascepa 1 Vascepa 1 Yes [employer] UT GM Oral GM Oral Physici Capsule Capsule ans Zyrtec TABS Zyrtec TABS Yes [employer] U T Physici ans Zinc 50 MG Zinc 50 MG Yes [employer] UT Oral Tablet Oral Tablet P hysici ans Myrbetriq Myrbetriq Yes [employer] 1 QD TAKE 1 UT 50 MG Oral 50 MG Oral TABLET P hysici Tablet Tablet DAILY ans Extended Extended Release 24 Release 24 Hour Hour Immunizations Ordered Filled Immunization Date Status Comments [facility] e Immunization Name Name SARS-COV-2 COVID-19 2020-07-16 Completed Unive rsity of MODERNA VACCINE 00:00:00 [facility] ical Branch SARS-COV-2 COVID-19 2020-06-18 Completed Unive rsity of MODERNA VACCINE 00:00:00 [facility] Vital Signs Vital Name Observation Time Observation Value Comments Source Systolic blood 2021-05-18 120 mm[Hg] [facility] pressure 14:52:00 Diastolic blood 2021-05-18 83 mm[Hg] [facility] pressure 14:52:00 Heart rate 2021-05-18 69 /min [facility] 14:52:00 Body temperature 2021-05-18 36.33 [place] [facility] 14:52:00 Body weight 2021-05-18 96.843 kg [facility] 14:52:00 BMI 2021-05-18 34.46 kg/m2 [facility] 14:52:00 Systolic blood 2022-04-27 133 mm[Hg] [facility] pressure 15:43:00 Diastolic blood 2022-04-27 82 mm[Hg] [facility] pressure 15:43:00 Heart rate 2022-04-27 82 /min [facility] 15:43:00 Body temperature 2022-04-27 36.61 [place] [facility] 15:43:00 Body weight 2022-04-27 105.189 kg [facility] 15:43:00 BMI 2022-04-27 37.43 kg/m2 [facility] 15:43:00 Systolic blood 2021-12-25 115 mm[Hg] [facility] pressure 18:50:00 Diastolic blood 2021-12-25 79 mm[Hg] [facility] pressure 18:50:00 Heart rate 2021-12-25 76 /min [facility] 18:50:00 Body weight 2021-12-25 102.649 kg [facility] 18:50:00 BMI 2021-12-25 36.53 kg/m2 [facility] 18:50:00 height 2021-11-20 66 [in_i] [facility] - 10:00:00 [facility] weight 2021-11-20 222 [lb_av] [facility] - 10:00:00 [facility] bmi 2021-11-20 35.83 kg/m2 [facility] - 10:00:00 [facility] blood pressure 2021-11-20 128 mm[Hg] [facility] - systolic 10:00:00 [facility] blood pressure 2021-11-20 70 mm[Hg] [facility] - diastolic 10:00:00 [facility] Systolic blood 2021-08-17 127 mm[Hg] [facility] pressure 16:47:00 Diastolic blood 2021-08-17 85 mm[Hg] [facility] pressure 16:47:00 Heart rate 2021-08-17 76 /min [facility] 16:47:00 Body temperature 2021-08-17 35.5 [place] [facility] 16:47:00 Body weight 2021-08-17 99.066 kg [facility] 16:47:00 BMI 2021-08-17 35.25 kg/m2 [facility] 16:47:00 Systolic blood 2021-05-18 120 mm[Hg] [facility] pressure 14:52:00 Diastolic blood 2021-05-18 83 mm[Hg] [facility] pressure 14:52:00 Heart rate 2021-05-18 69 /min [facility] 14:52:00 Body temperature 2021-05-18 36.33 [place] [facility] 14:52:00 Body weight 2021-05-18 96.843 kg [facility] 14:52:00 BMI 2021-05-18 34.46 kg/m2 [facility] 14:52:00 Systolic blood 2022-03-13 126 mm[Hg] [facility] pressure 14:08:00 Hospital Diastolic blood 2022-03-13 63 mm[Hg] [facility] pressure 14:08:00 Hospital Heart rate 2022-03-13 85 /min [facility] 14:08:00 Hospital Body height 2022-03-13 167.6 cm [facility] 14:08:00 Hospital Body weight 2022-03-13 104.327 kg [facility] 14:08:00 Hospital BMI 2022-03-13 37.12 kg/m2 [facility] 14:08:00 Hospital Oxygen saturation 2022-03-13 97 /min [facility] in Arterial blood 14:08:00 Hospital by Pulse oximetry Body temperature 2020-07-13 97.3 [degF] [facility] 09:14:00 Heart Rate 2020-07-13 90 /min [facility] 09:14:00 Systolic blood 2020-07-13 121 mm[Hg] Location: R[facility]; [facility] pressure 09:14:00 Position: Sitting Diastolic blood 2020-07-13 90 mm[Hg] Location: [facility]; [facility] pressure 09:14:00 Position: Sitting Weight 2020-07-13 251 [lb_av] [facility] 09:14:00 Body mass index 2020-07-13 40.51 kg/m2 [facility] (BMI) [Ratio] 09:14:00 Systolic blood 2020-03-09 131 mm[Hg] Location: RUE; [facility] pressure 11:18:00 Position: Sitting Diastolic blood 2020-03-09 87 mm[Hg] Location: RUE; [facility] pressure 11:18:00 Position: Sitting Weight 2020-03-09 251.375 [lb_av] [facility] 11:18:00 Body mass index 2020-03-09 40.57 kg/m2 [facility] (BMI) [Ratio] 11:18:00 Body temperature 2020-03-09 97.4 [degF] [facility] 11:18:00 Heart Rate 2020-03-09 79 /min [facility] 11:18:00 Systolic blood 2019-12-09 136 mm[Hg] Location: RUE; [facility] pressure 13:27:00 Position: Sitting Diastolic blood 2019-12-09 87 mm[Hg] Location: RUE; [facility] pressure 13:27:00 Position: Sitting Weight 2019-12-09 250.4375 [lb_av] [facility] 13:27:00 Body mass index 2019-12-09 40.42 kg/m2 [facility] (BMI) [Ratio] 13:27:00 Body temperature 2019-12-09 97 [degF] [facility] 13:27:00 Heart Rate 2019-12-09 84 /min [facility] 13:27:00 BP Systolic 2019-05-27 125 mm[Hg] Location: L[facility]; [facility] 10:09:00 Position: Sitting BP Diastolic 2019-05-27 81 mm[Hg] Location: L[facility]; [facility] 10:09:00 Position: Sitting Weight 2019-05-27 242.4375 [lb_av] [facility] 10:09:00 Body Mass Index 2019-05-27 39.13 kg/m2 [facility] Calculated 10:09:00 Heart Rate 2019-05-27 73 /min [facility] 10:09:00 BP Systolic 2019-03-26 125 mm[Hg] Location: LUE; [facility] 16:11:00 Position: Sitting BP Diastolic 2019-03-26 82 mm[Hg] [facility]: L[facility]; [facility] 16:11:00 Position: Sitting Weight 2019-03-26 242 [lb_av] [facility] 16:11:00 Body Mass Index 2019-03-26 39.06 kg/m2 [facility] Calculated 16:11:00 Heart Rate 2019-03-26 75 /min Location: L [facility] 16:11:00 Carotid; BP Systolic 2019-01-21 118 mm[Hg] Location: LUE; [facility] 09:19:00 Position: Sitting BP Diastolic 2019-01-21 79 mm[Hg] Location: L[facility]; [facility] 09:19:00 Position: Sitting Weight 2019-01-21 237.1875 [lb_av] [facility] 09:19:00 Body Mass Index 2019-01-21 38.28 kg/m2 [facility] Calculated 09:19:00 Heart Rate 2019-01-21 73 /min Location: L [facility] 09:19:00 Carotid; BP Systolic 2018-07-23 112 mm[Hg] Location: L[facility]; [facility] 09:00:00 Position: Sitting BP Diastolic 2018-07-23 76 mm[Hg] Location: LUE; [facility] 09:00:00 Position: Sitting Weight 2018-07-23 219.1875 [lb_av] [facility] 09:00:00 Body Mass Index 2018-07-23 35.38 kg/m2 [facility] Calculated 09:00:00 Heart Rate 2018-07-23 71 /min Location: L [facility] 09:00:00 Carotid; BP Systolic 2018-01-22 116 mm[Hg] Location: RUE; [facility] 13:18:00 Position: Sitting BP Diastolic 2018-01-22 77 mm[Hg] Location: RUE; [facility] 13:18:00 Position: Sitting Height 2018-01-22 66 [in_us] [facility] 13:18:00 Weight 2018-01-22 220.4375 [lb_av] [facility] 13:18:00 Body Mass Index 2018-01-22 35.58 kg/m2 [facility] Calculated 13:18:00 Heart Rate 2018-01-22 72 /min Location: R [facility] 13:18:00 Radial; BP Systolic 2017-07-05 112 mm[Hg] Location: L[facility]; [facility] 11:59:00 Position: Sitting BP Diastolic 2017-07-05 76 mm[Hg] Location: L[facility]; [facility] 11:59:00 Position: Sitting Weight 2017-07-05 246.4375 [lb_av] [facility] 11:59:00 Body Mass Index 2017-07-05 39.78 kg/m2 [facility] Calculated 11:59:00 Heart Rate 2017-07-05 89 /min Location: L [facility] 11:59:00 Radial; Procedures Procedure Date / Time Performing Clinician Source Performed ECG 12-LEAD 2022-03-13 14:14:23 [facility] [QL] C-REACTIVE PROTEIN 2020-07-13 00:00:00 [facility] [QL] CBC (INCLUDES 2020-07-13 00:00:00 [facility] DIFF/PLT) [QL] CMP W/EGFR 2020-07-13 00:00:00 [facility] [QL] SED RATE BY MODIFIED 2020-07-13 00:00:00 [facility] EMANI [QL] LIPID PANEL 2020-07-13 00:00:00 [facility] XRAY Hand AP lateral 2020-07-13 00:00:00 [facility] oblique Bilateral [id number] XRAY Foot 3 views 2020-07-13 00:00:00 [facility] Bilateral [id number] [QL] C-REACTIVE PROTEIN 2020-03-09 00:00:00 [facility] [QL] CBC (INCLUDES 2020-03-09 00:00:00 [facility] DIFF/PLT) [QL] CMP W/EGFR 2020-03-09 00:00:00 [facility] [QL] SED RATE BY MODIFIED 2020-03-09 00:00:00 [facility] JIMMYERGREN [QL] QUANTIFERON(R)-TB 2020-03-09 00:00:00 [facility] GOLD [QL] C-REACTIVE PROTEIN 2019-12-09 00:00:00 [facility] [QL] CBC (INCLUDES 2019-12-09 00:00:00 [facility] DIFF/PLT) [QL] CMP W/EGFR 2019-12-09 00:00:00 [facility] [QL] SED RATE BY MODIFIED 2019-12-09 00:00:00 [facility] WESTERGREN [QL] SJOGRENS ANTIBODIES 2019-12-09 00:00:00 [facility] (SS-A,SS-B) [QLH] C-REACTIVE PROTEIN 2019-05-27 00:00:00 [facility] [QLH] CBC (INCLUDES 2019-05-27 00:00:00 [facility] DIFF/PLT) [QLH] CMP W/EGFR 2019-05-27 00:00:00 [facility] [QLH] HEPATITIS B CORE AB 2019-05-27 00:00:00 [facility] TOTAL [QL] QUANTIFERON(R)-TB 2019-05-27 00:00:00 [facility] GOLD [QLH] SED RATE BY MODIFIED 2019-05-27 00:00:00 [facility] WESTERGREN [QLH] CBC (INCLUDES 2019-03-26 00:00:00 [facility] DIFF/PLT) [QLH] CMP W/EGFR 2019-03-26 00:00:00 [facility] [QLH] C-REACTIVE PROTEIN 2019-03-26 00:00:00 [facility] [QLH] SED RATE BY MODIFIED 2019-03-26 00:00:00 [facility] WESTERGREN [QLH] CBC (INCLUDES 2019-03-05 00:00:00 [facility] DIFF/PLT) [QLH] HEPATIC FUNCTION 2019-03-05 00:00:00 [facility] PANEL [QLH] CBC (INCLUDES 2018-07-23 00:00:00 [facility] DIFF/PLT) [QLH] CMP W/EGFR 2018-07-23 00:00:00 [facility] [QLH] C-REACTIVE PROTEIN 2018-01-22 00:00:00 [facility] [QLH] CBC (INCLUDES 2018-01-22 00:00:00 [facility] DIFF/PLT) [QLH] CMP W/EGFR 2018-01-22 00:00:00 [facility] [QLH] SED RATE BY MODIFIED 2018-01-22 00:00:00 [facility] EMANI [QLH] CBC (INCLUDES 2017-07-05 00:00:00 [facility] DIFF/PLT) [QLH] CMP W/EGFR 2017-07-05 00:00:00 [facility] [QLH] VITAMIN D, 2017-07-05 00:00:00 [facility] 25-HYDROXY, LC/MS/MS History of Hysterectomy [facility] Total, With Removal Of Both Tubes And Both Ovaries History [facility]olecyst[facility] History of Hysterectomy [facility] Total, With Removal Of Both Tubes And Both Ovaries Plan of Care Planned Activity Planned Date Details Comments Source Future Scheduled 2022-06-23 Hepatitis C screening [facility] Test 11:53:26 (procedure) [code = [id number]] Future Scheduled 2022-06-23 BREAST CANCER [facility] Test 11:53:26 SCREENING [code = BREAST CANCER SCREENING] Future Scheduled 2022-06-23 COLONOSCOPY SCREENING [facility] Test 11:53:26 [code = COLONOSCOPY SCREENING] Future Scheduled 2022-06-23 SHINGLES VACCINES ([address] [facility] Test 11:53:26 of 2) [code = SHINGLES VACCINES (1 of 2)] Future Scheduled 2022-06-[address] HE[address] VACCINES Met [facility] Test 11:53:26 (1 of 3 - Risk 3-dose series) [code = HEPATITIS B VACCINES (1 of 3 - Risk 3-dose series)] Future Scheduled 2022-06-23 65+ [facility] Test 11:53:26 VACCINE (1 - PCV) [code = 65+ PNEUMOCOCCAL VACCINE (1 - PCV)] Future Scheduled 2022-06-23 COVID-19 VACCINE (3 - [facility] Test 11:53:26 Booster for Moderna series) [code = COVID-19 VACCINE (3 - Booster for Moderna series)] Future Scheduled 2022-06-23 INFLUENZA VACCINE Method [facility] Test 11:53:26 [code = INFLUENZA VACCINE] Encounters Start End Encounter Admission Attending Care Care Encounter Source Date/Time Date/Time Type Type Clinicians Facility Department ID 2022-04-27 Outpatient [facility] [id number] [place] 15:30:31 [id number] Health 2021-11-23 [facility] [id number] [facility] 09:41:04 Shimon [id number] [facility] 2020-11-10 Outpatient PEREZ [facility] [id number] [place] 10:04:11 [facility] 2022-08-30 2022-08-30 Outpatient ANA [facility] [id number] [place] 10:30:00 10:30:00 [facility] 2022-04-27 2022-04-27 Office AnaHARSH 6410 1.2.840.114 [id number] [place] 10:00:00 10:31:[address] 350.1.13.58 Health 9.2.7.2.686 [id number] 9 2022-03-13 2022-03-13 Office Elisa 1.2.840.1 [id number] Methodi 09:00:00 14:58:06 Visit Bolivar Grissom 06885.1.[address] 3.430.2.7 Hospit a .3.097726 l .8 2022-03-13 2022-03-13 Outpatient ELISA [facility] [id number] [place] 00:00:00 00:00:00 BOL[address] 2022-03-13 2022-03-13 Travel 1.2.840.1 1.2.813.033 [id number] Methodi 00:00:00 00:00:[address] 3.430.2.7 0.2.7.3.698 spita .3.153487 084.8 l .8 2021-12-25 2021-12-25 Office AnaHARSH 6410 1.2.840.114 [id number] [place] 13:30:00 14:15:[address] 350.1.13.58 Health 9.2.7.2.686 [id number] 9 2021-12-22 2021-12-22 Outpatient ANA [facility] [id number] [place] 10:00:00 10:00:00 MYRTLE torres 2021-11-20 2021-11-20 [facility] [id number] Co mmon 00:00:00 00:00:00 [facility] LEVEL 3 - [facility] 2021-11-12 2021-11-12 Telephone Cate Paiz HARSH 6410 1.2.840 .114 [id number] [place] 00:00:00 00:00:[address] 350.1.13.58 Health 9.2.7.2.686 [id number] 9 2021-08-17 2021-08-17 Office HARSH Perez 6410 1.2.840.114 [id number] [place] 11:30:00 12:16:15 Visit Myrtle PISANO 350.1.13.58 Health 9.2.7.2.686 [id number] 9 2021-05-18 2021-05-18 Office HARSH Perez 6410 1.2.840.114 [id number] [place] 09:00:00 09:29:[address] 350.1.13.58 Health 9.2.7.2.686 [id number] 9 2021-04-24 2021-04-24 Refill HARSH Perez 6410 1.2.840.114 [id number] [place] 00:00:00 00:00:[address] 350.1.13.58 Health 9.2.7.2.686 [id number] 9 2021-03-14 2021-03-14 Outpatient [facility] [id number] [place] 00:00:00 00:00:00 BOLIVAR [address] 2021-02-28 2021-02-28 Telephone HARSH Perez 6410 1.2.840.114 [id number] [place] 00:00:00 00:00:[address] 350.1.13.58 Health 9.2.7.2.686 [id number] 9 2021-01-31 2021-01-31 Outpatient CRISTOBALCOUNT INCLUDES THE [facility] [id number] [place] 00:00:00 00:00:00 SEAN [address] 2021-01-09 2021-01-09 Outpatient R BELEN [facility] [id number] Univers 10:00:00 10:00:00 HILDA mercado [facility] 2021-01-09 2021-01-09 Laboratory Only, Ang Db Test [facility] 1.2.8 40.114 [id number] [facility] 09:32:45 09:47:45 Only Hilda Glover [facility] 350.1.13.10 ity el[place] 4.2.7.2.686 Naveed as Chang?Blea [id number] [facility] [address] Medical Office Building 2020-11-25 2020-11-25 Telephone Paul Paiza UTP 6410 1.2.840 .114 [id number] [place] 00:00:00 00:00:[address] 350.1.13.58 Health 9.2.7.2.686 [id number] 9 2020-11-25 2020-11-25 Telephone Chencho, UTP 6410 1.2.840.114 [id number] 00:00:00 00:00:[address] 350.1.13.58 9.2.7.2.686 [id number] 9 2020-11-16 2020-11-16 Telephone [place], Rosa UTP 6410 1.2.840.1 14 [id number] [place] 00:00:00 00:00:[address] 350.1.13.58 Health 9.2.7.2.686 [id number] 9 2020-11-16 2020-11-16 Telephone Thee, UTP 6410 1.2.840.114 [id number] 00:00:00 00:00:[address] 350.1.13.58 9.2.7.2.686 [id number] 9 2020-11-10 2020-11-10 Office HARSH Perez 6410 1.2.840.114 [id number] [place] 09:11:30 10:04:04 Visit Myrtle ALVARENGA 350.1.13.58 Health 9.2.7.2.686 [id number] 9 2020-11-10 2020-11-10 Office HARSH Perez 6410 1.2.840.114 [id number] 09:11:30 10:04:04 Visit Myrtle ALVARENGA 350.1.13.58 9.2.7.2.686 [id number] 9 2020-07-16 2020-07-16 Outpatient [facility] [id number] [facility] 11:35:00 11:35:00 [facility] 2020-07-13 2020-07-13 [facility] [id number] [place] 09:30:00 09:30:00 t; MYRTLE PEREZ y P hysici COURTNEY, M.D. ans M.D. 2020-06-18 2020-06-18 Outpatient [facility] [id number] [facility] 11:50:00 11:50:00 [facility] 2020-06-11 2020-06-11 Laboratory Lab, Adc [facility] Pob [facility] 1.2. 840.114 [id number] Univers 10:23:39 10:43:39 Only Lindy Singh [facility] 350.1.13.10 [facility] 4.2.7.2.686 Naveed as Professio [phone] [place] [address] Office Building One 2020-06-11 2020-06-11 Outpatient Alena SINGH [facility] [id number] [facility] 10:40:00 10:40:00 [facility] 2020-03-15 2020-03-15 Outpatient [facility] [id number] [place] 00:00:00 00:00:00 BOLIVAR [address] 2020-03-09 2020-03-09 AppointHARSH [facility] [id number] [place] 11:00:00 11:00:00 t; MYRTLE PEREZ y P hysici COURTNEY, M.D. ans M.D. 2020-01-21 2020-01-21 [facility]patient [facility] [id number] Univers 18:20:00 18:20:00 LOVE kannan [facility] 2020-01-21 2020-01-21 Laboratory Lab, [facility] 12. 840.114 [id number] Univers 17:49:06 18:09:06 Only Love Davidson [facility] 350.1.13.10 ity of [place] 4.2.7.2.686 Naveed as Professio [id number] [place] dical nal 0[address] [place] Office [facility] One 2019-12-09 2019-12-09 AppointHARSH Hogan Internal [id number] [place] 10:30:00 10:30:00 t; MYRTLE PEREZ Medicine - Physici COURTNEY, M.D. [facility] 2019-11-16 2019-11-16 Laboratory Lab, [facility] 1.2. 840.114 [id number] Univers 13:56:36 14:16:36 Only Lindy Singh [facility] 350.1.13.10 ity of [place] 4.2.7.2.686 Naveed as Professio [id number] [place] dical nal 044 [place] [facility] One 2019-11-16 2019-11-16 Outpatient R SAMANTHA [facility] [id number] [facility] 14:00:00 14:00:00 LINDY [facility] 2019-09-03 2019-09-03 AppointHARSH [facility] [id number] [place] 10:30:00 10:30:00 t; MYRTLE PEREZ y P hysici COURTNEY, M.D. ans M.D. 2019-05-27 2019-05-27 AppointHARSH [facility] [id number] [place] 10:00:00 10:00:00 t; MYRTLE PEREZ y P hysici COURTNEY, M.D. ans M.D. 2019-03-26 2019-03-26 [facility] [id number] [place] 15:00:00 15:00:00 t; MYRTLE PEREZ y P hysici COURTNEY, M.D. ans M.D. 2019-01-21 2019-01-21 [facility] [id number] [place] 09:00:00 09:00:00 t; MYRTLE PEREZ y P hysici COURTNEY, M.D. ans M.DBienvenido 2018-07-23 2018-07-23 Appointdavis [facility] [id number] [place] 09:00:00 09:00:00 t; MYRTLE PEREZ y P hysici COURTNEY, M.D. ans M.DBienvenido 2018-01-22 2018-01-22 Appointdavis [facility] [id number] [place] 12:30:00 12:30:00 t; MYRTLE PEREZ y P hysici COURTNEY, M.D. ans M.DBienvenido 2018-01-01 2018-01-01 [facility] [id number] [place] 10:30:00 10:30:00 t; MYRTLE PEREZ P hysici COURTNEY, M.D. ans M.DBienvenido 2017-12-18 2017-12-18 [facility] [id number] [place] 09:30:00 09:30:00 t; MYRTLE PEREZ P hysici COURTNEY, M.D. ans M.DBienvenido 2017-12-18 2017-12-18 [facility] [id number] [place] 09:30:00 09:30:00 t; MYRTLE PEREZ P hysici COURTNEY, M.D. ans M.DBienvenido 2017-12-13 2017-12-13 [facility] [id number] [place] 10:30:00 10:30:00 t; MYRTLE PEREZ P hysici COURTNEY, M.D. ans M.DBienvenido 2017-07-05 2017-07-05 Chaitanya [facility] Rheumatolog [id number] [place] 12:00:00 12:00:00 t; MYRTLE PEREZ y P hysici COURTNEY, M.D. ans MPaula 2017-03-07 2017-03-07 [facility] [id number] [place] 10:30:00 10:30:00 t; PEREZMYRTLE CARDENAS P hysici COURTNEY, M.D. ans M.D. 2017-01-24 2017-01-24 Appointmen HARSH PEREZ [facility] [id number] [place] 13:00:00 13:00:00 t; MYRTLE PEREZ P hysici COURTNEY, M.D. ans M.D. Results Test Description Test Time Test Comments Results Result Comments Source ECG 12 lead 2022-03-13 16:00:37 Test Item Value Reference Range Interpretation Comme nts Ventricular rate (test code = 253) 87 Atrial rate (test code = 255) 87 GA interval (test code = 266) 150 QRSD interval (test code = 260) 92 QT interval (test code = 264) 366 QTC interval (test code = 265) 440 P axis 1 (test code = 267) 69 QRS axis 1 (test code = 268) 14 T wave axis (test code = 270) 48 EKG impression (test code = 273) Normal sinus rhythm-Normal ECG-In automated comparison with ECG of 14-MAR-2021 09:19,-No significant change was found- [facility] lateral oblique Bilateral [id number] 12:25:00EXAM: XR BILATERAL HAND 4 VIEWSDATE: 07/13/2020 12:12 CSTINDICATION: - L40.50 Arthropathic psoriasis, unspecifiedCOMPARISON: 01/24/2017.TECHNIQUE: PA, Dillongaard, lateral and oblique radiographs of the bilateralhands.FINDINGS: No acute fracture or malalignment is identified. Mild scatteredosteoarthrosis ofthe bilateral IP joints again noted. Mild left triscaphejoint space narrowing.No erosions or periostitis identified.No soft tissue abnormality is identified.IMPRESSION:1. No radiographic evidence of inflammatory arthropathy.2. 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 Ihave personallyreviewed the images as well as the interpretation and agree with the findings.Read by: Shimon Corea MD Resident/Fellow/PhysicianAssistant: Shimon Corea MDDictated Date/time: 07/13/20 13:33Electronically Signed by: Jamal Boyer MD 07/14/2115:11FINAL REPORTUT PhysiciansXRAY Foot 3 views Bilateral [id number] 12:25:00EXAM: XR BILATERAL FOOT 3 VIEWSDATE: 07/13/2020 12:12 CSTINDICATION: - L40.50 Arthropathic psoriasis, unspecifiedCOMPARISON: None.TECHNIQUE: AP, lateral and oblique radiographs of the bilateral feetFINDIN GS: No acute fracture or malalignment is identified. There are smallbilateral plantar calcaneal enthesophytes as well as large Achilles insertionenthesophytes. Bilateral peroneal ossicles are incidentally noted. Chronicappearing fragment is seen at the tip of the left lateral malleolus.No soft tissue abnormality is identified.IMPRESSION: No acute abnormality. No radiographic changes of inflammatoryarthropathy.--This report was dictated by a Rock Breaker/Fellow/Physician Certified Scrub Tech. Ihave personallyreviewed the images as well as the interpretation and agree with the findings.Read by: Griffin Blood (Fellow Resident/Fellow/PhysicianAssistant: Griffin Blood (FellowDictated Date/time: 07/13/20 13:01Electronically Signed by: Jamal Boyer MD 07/13/2118:52FINAL REPORTUT Physicians[QL] LIPID PANEL 2020-07-13 11:02:00 Test Item Value Reference Range Interpretation Comments CHOLESTEROL, TOTAL; 180 mg/dl <200 N Normal (test code = 2092-3) HDL CHOLESTEROL; 53 mg/dl See_Comment N [Automated message] Normal (test code = The syst em which 2085-01) generated this result transmit jazmín reference range : > OR = 50. The reference range was not used to interpret this result as normal/abnormal . TRIGLYCERIDES; Above 165 mg/dl <150 High Threshold (test code = 2571-8) LDL-CHOLESTEROL; 101 {MG/DL Reference r yovani: Above High Threshold IBETH} <100 De sirable range (test code = <100 mg/[place] [address]-0) primary prevent ion; <70 mg/dL for patients with C HD or diabetic patien ts with > or = 2 C HD risk factors. L DL-C is now calculat ed using the Michael-Hernandez calculation, wh ich is a validated novel method providin g better accuracy than the Friedewald equation in the estimation of L DL-C. Michael SS et al . GIOVANY. 2013;310( 68): 9469-9011 (http://educati on.iSquare. com/f aq/RBI446) CHOL/HDLC RATIO 3.4 {CALC} <5.0 N (test code = CHOL/HDLC RATIO) NON HDL CHOLESTEROL 127 {MG/DL <130 N For porfirio ents with (test code = NON HDL IBETH} diabete s plus 1 CHOLESTEROL) major ASCVD ris k factor, treatin g to a non-HDL-C goa l of <100 mg/dL (LDL -C of <70 mg/dL) is considered a therapeutic opt ion. [facility][QL] CMP [id number] 11:02:00 Test Item Value Reference Range Interpretation Comments GLUCOSE; Normal 100 mg/dl 65-139 N Non-fasting reference (test code = interval 1547-9) UREA NITROGEN 15 mg/dl 7-25 N (BUN) (test code = UREA NITROGEN (BUN)) CREATININE (test 0.81 mg/dl 0.50-0.99 N For patient s >49 years code = of age, the ref erence CREATININE) limitfor Creati nine is approximately 1 3% higher for peopleidentifie d as -Leia n. eGFR NON-AFR. 75 {ML/MIN/1.7} See_Comment N [Automated message] PRYDEINIG (test The system ich code = eGFR generated this result NON-AFR. transmitted ref erence PRYDEINIG) range: > OR = 6 0. The reference range was not used to int erpret this result as normal/abnormal . eGFR 86 {ML/MIN/1.7} See_Comment N [Automated message] PRYDEINIG (test The system ich code = eGFR generated this result ) transmitte d reference range: > OR = 6 0. The reference range was not used to int erpret this result as normal/abnormal . BUN/CREATININE NOT APPLICABLE 6-22 RATIO (test code = BUN/CREATININE RATIO) SODIUM (test code 142 mmol/L 135-146 N = SODIUM) POTASSIUM (test 4.8 mmol/L 3.5-5.3 N code = POTASSIUM) CHLORIDE (test 105 mmol/L 98-110 N code = CHLORIDE) CARBON DIOXIDE 30 mmol/L 20-32 N (test code = CARBON DIOXIDE) CALCIUM (test 9.6 mg/dl 8.6-10.4 N code = CALCIUM) PROTEIN, TOTAL 7.1 g/dl 6.1-8.1 N (test code = PROTEIN, TOTAL) ALBUMIN (test 4.2 g/dl 3.6-5.1 N code = ALBUMIN) GLOBULIN (test 2.9 {G/DL CALC} 1.9-3.7 N code = GLOBULIN) ALBUMIN/GLOBULIN 1.4 {CALC} 1.0-2.5 N RATIO (test code = ALBUMIN/GLOBULIN RATIO) BILIRUBIN, TOTAL; 0.7 mg/dl 0.2-1.2 N Normal (test code = 83106-5) ALKALINE 105 u/l 37-153 N PHOSPHATASE (test code = ALKALINE PHOSPHATASE) AST; Normal (test 20 u/l 10-35 N code = 1916-6) ALT; Normal (test 24 u/l 6-29 N code = 1742-6) [facility][QL] SED RATE BY MODIFIED [id number] 11:02:00 Test Item Value Reference Range Interpretation Comments SED RATE BY MODIFIED 14 mm/h See_Comment N [Autom ated message] EMANI (test code = The system which SED RATE BY MODIFIED generat ed this result EMANI) transmitted ref erence range: < OR = 3 0. The reference range was not used to interpr et this result as normal/abnormal . [facility][QL] CBC (INCLUDES DIFF/PLT)2020-07-13 11:02:00 Test Item Value Reference Range Interpretation Comments WHITE BLOOD CELL COUNT 6.6 {Thousand/u} 3.8-10.8 N (test code = WHITE BLOOD CELL COUNT) RED BLOOD CELL COUNT (test 4.31 {Million/uL} 3.80-5.10 N code = RED BLOOD CELL COUNT) HEMOGLOBIN; Normal (test 13.8 g/dl 11.7-15.5 N code = 04128-2) HEMATOCRIT; Normal (test 40.8 % 35.0-45.0 N code = 4544-3) MCV; Normal (test code = 94.7 fL 80.0-100.0 N 787-2) MCHC; Normal (test code = 33.8 g/dl 32.0-36.0 N 68846-0) RDW; Normal (test code = 12.7 % 11.0-15.0 N 788-0) PLATELET COUNT; Normal 275 {Thousand/u} 140-400 N (test code = 777-3) MPV; Normal (test code = 10.2 fL 7.5-12.5 N 06413-0) ABSOLUTE NEUTROPHILS (test 3742 {cells/uL} 4802-3474 N code = ABSOLUTE NEUTROPHILS) ABSOLUTE LYMPHOCYTES (test 2158 {cells/uL} 850-3900 N code = ABSOLUTE LYMPHOCYTES) ABSOLUTE MONOCYTES (test 574 {cells/uL} 200-950 N code = ABSOLUTE MONOCYTES) ABSOLUTE EOSINOPHILS (test 92 {cells/uL} 15-500 N code = ABSOLUTE EOSINOPHILS) ABSOLUTE BASOPHILS (test 33 {cells/uL} 0-200 N code = ABSOLUTE BASOPHILS) NEUTROPHILS (test code = 56.7 % N NEUTROPHILS) LYMPHOCYTES (test code = 32.7 % N LYMPHOCYTES) MONOCYTES; Normal (test 8.7 % N code = 96936-9) EOSINOPHILS; Normal (test 1.4 % N code = 05967-3) BASOPHILS; Normal (test 0.5 % N code = 07278-3) [facility][QL] C-REACTIVE [id number] 11:02:00 Test Item Value Reference Range Interpretation Comments C-REACTIVE PROTEIN (test code = 4.4 mg/L <8.0 N C-REACTIVE PROTEIN) REPORT COMMENT:FASTING:[facility][QL] CMP [id number] 15:06:00 Test Item Value Reference Range Interpretation Comments GLUCOSE; Normal 115 mg/dl 65-139 N Non-fasting reference (test code = interval 1547-9) UREA NITROGEN 18 mg/dl 7-25 N (BUN) (test code = UREA NITROGEN (BUN)) CREATININE (test 0.83 mg/dl 0.50-0.99 N For patient s >49 years code = of age, the ref erence CREATININE) limitfor Creati nine is approximately 1 3% higher for peopleidentifie d as -Leia n. eGFR NON-AFR. 73 {ML/MIN/1.7} > OR = 60 N PRYDEINIG (test code = eGFR NON-AFR. PRYDEINIG) eGFR 85 {ML/MIN/1.7} > OR = 60 N PRYDEINIG (test code = eGFR ) BUN/CREATININE NOT APPLICABLE 6-22 RATIO (test code = BUN/CREATININE RATIO) SODIUM (test code 141 mmol/L 135-146 N = SODIUM) POTASSIUM (test 4.2 mmol/L 3.5-5.3 N code = POTASSIUM) CHLORIDE (test 105 mmol/L 98-110 N code = CHLORIDE) CARBON DIOXIDE 27 mmol/L 20-32 N (test code = CARBON DIOXIDE) CALCIUM (test 9.5 mg/dl 8.6-10.4 N code = CALCIUM) PROTEIN, TOTAL 7.0 g/dl 6.1-8.1 N (test code = PROTEIN, TOTAL) ALBUMIN (test 4.3 g/dl 3.6-5.1 N code = ALBUMIN) GLOBULIN (test 2.7 {G/DL CALC} 1.9-3.7 N code = GLOBULIN) ALBUMIN/GLOBULIN 1.6 {CALC} 1.0-2.5 N RATIO (test code = ALBUMIN/GLOBULIN RATIO) BILIRUBIN, TOTAL; 0.4 mg/dl 0.2-1.2 N Normal (test code = 26199-6) ALKALINE 76 u/l 37-153 N PHOSPHATASE (test code = ALKALINE PHOSPHATASE) AST; Normal (test 24 u/l 10-35 N code = 1916-6) ALT; Above High 30 u/l 6-29 Threshold (test code = 1742-6) [facility][QL] SED RATE BY MODIFIED [id number] 15:06:00 Test Item Value Reference Range Interpretation Comments SED RATE BY MODIFIED WESTERGREN (test 9 mm/h < OR = 30 N code = SED RATE BY MODIFIED WESTERGREN) [facility][QL] CBC (INCLUDES DIFF/PLT)2020-04-15 15:06:00 Test Item Value Reference Range Interpretation Comments WHITE BLOOD CELL COUNT 7.8 {Thousand/u} 3.8-10.8 N (test code = WHITE BLOOD CELL COUNT) RED BLOOD CELL COUNT (test 4.07 {Million/uL} 3.80-5.10 N code = RED BLOOD CELL COUNT) HEMOGLOBIN; Normal (test 13.0 g/dl 11.7-15.5 N code = 49387-7) HEMATOCRIT; Normal (test 39.0 % 35.0-45.0 N code = 4544-3) MCV; Normal (test code = 95.8 fL 80.0-100.0 N 787-2) MCHC; Normal (test code = 33.3 g/dl 32.0-36.0 N 81366-5) RDW; Normal (test code = 12.6 % 11.0-15.0 N 788-0) PLATELET COUNT; Normal 277 {Thousand/u} 140-400 N (test code = 777-3) MPV; Normal (test code = 10.8 fL 7.5-12.5 N 17223-6) ABSOLUTE NEUTROPHILS (test 4992 {cells/uL} 7979-1475 N code = ABSOLUTE NEUTROPHILS) ABSOLUTE LYMPHOCYTES (test 1903 {cells/uL} 850-3900 N code = ABSOLUTE LYMPHOCYTES) ABSOLUTE MONOCYTES (test 757 {cells/uL} 200-950 N code = ABSOLUTE MONOCYTES) ABSOLUTE EOSINOPHILS (test 117 {cells/uL} 15-500 N code = ABSOLUTE EOSINOPHILS) ABSOLUTE BASOPHILS (test 31 {cells/uL} 0-200 N code = ABSOLUTE BASOPHILS) NEUTROPHILS (test code = 64 % N NEUTROPHILS) LYMPHOCYTES (test code = 24.4 % N LYMPHOCYTES) MONOCYTES; Normal (test 9.7 % N code = 03742-5) EOSINOPHILS; Normal (test 1.5 % N code = 21772-9) BASOPHILS; Normal (test 0.4 % N code = 36901-8) [facility][QL] C-REACTIVE [id number] 15:06:00 Test Item Value Reference Range Interpretation Comments C-REACTIVE PROTEIN (test code = 7.1 mg/L <8.0 N C-REACTIVE PROTEIN) [facility][Q] QUANTIFERON( R)-TB GOLD PLUS, 1 [id number] 15:06:00 Test Item Value Reference Range Interpretation Comments QUANTIFERON( NEGATIVE NEGATIVE N Negative test r esult. M. R)-TB GOLD tuberculosis co mplex PLUS, 1 TUBE infection unlik blayne. (test code = QUANTIFERON( R)-TB GOLD PLUS, 1 TUBE) NIL (test code 0.05 {IU/ml} N = NIL) MITOGEN-NIL >10.00 N (test code = MITOGEN-NIL) TB1-NIL (test 0.00 {IU/ml} N code = TB1-NIL) TB2-NIL (test 0.00 {IU/ml} N The Nil tube v alue reflects code = the background TB2-NIL) interferongamma immune response of the patient's blood sample.Th is value has been subtracted from the patient'sdispla yed TB and Mitogen results . Lower than expected result s with the Mitogen tubepre vent false-negative Quantiferon readings bydete cting a patient with a potential immunesuppressi ve condition and/or suboptim al pre-analyticals pecimen handling. The T B1 Antigen tube is coated with theM. tuberculosis-sp ecific antigens design ed to elicitresponses from TB antigen primed CD4+ helperT-lymphoc ytes. The TB2 Antigen tub e is coated with theM. tuberculosis-sp ecific antigens design ed to elicitresponses from TB antigen primed CD4+ helper and CD8+cytotox ic T-lymphocytes. For additional info rmation, please refer tohttps://educa tion.Carritus/f aq/MKP521(Th is link is leslie rainey provided for informational/e ducational purposes only.) [facility][QL] CMP [id number] 11:28:00 Test Item Value Reference Range Interpretation Comments GLUCOSE; Normal 127 mg/dl 65-139 N Non-fasting reference (test code = interval 1547-9) UREA NITROGEN 16 mg/dl 7-25 N (BUN) (test code = UREA NITROGEN (BUN)) CREATININE (test 0.91 mg/dl 0.50-0.99 N For patient s >49 years code = of age, the ref erence CREATININE) limit[facility] nine is approximately 1 3% higher for peopleidentifie d as -Leia n. eGFR NON-AFR. 65 {ML/MIN/1.7} > OR = 60 N PRYDEINIG (test code = eGFR NON-AFR. PRYDEINIG) eGFR 76 {ML/MIN/1.7} > OR = 60 N PRYDEINIG (test code = eGFR ) BUN/CREATININE NOT APPLICABLE 6-22 RATIO (test code = BUN/CREATININE RATIO) SODIUM (test code 141 mmol/L 135-146 N = SODIUM) POTASSIUM (test 4.4 mmol/L 3.5-5.3 N code = POTASSIUM) CHLORIDE (test 105 mmol/L 98-110 N code = CHLORIDE) CARBON DIOXIDE 29 mmol/L 20-32 N (test code = CARBON DIOXIDE) CALCIUM (test 10.0 mg/dl 8.6-10.4 N code = CALCIUM) PROTEIN, TOTAL 6.8 g/dl 6.1-8.1 N (test code = PROTEIN, TOTAL) ALBUMIN (test 4.1 g/dl 3.6-5.1 N code = ALBUMIN) GLOBULIN (test 2.7 {G/DL CALC} 1.9-3.7 N code = GLOBULIN) ALBUMIN/GLOBULIN 1.5 {CALC} 1.0-2.5 N RATIO (test code = ALBUMIN/GLOBULIN RATIO) BILIRUBIN, TOTAL; 0.7 mg/dl 0.2-1.2 N Normal (test code = 67025-6) ALKALINE 75 u/l 37-153 N PHOSPHATASE (test code = ALKALINE PHOSPHATASE) AST; Normal (test 22 u/l 10-35 N code = 1916-6) ALT; Normal (test 26 u/l 6-29 N code = 1742-6) [facility][QL] SED RATE BY MODIFIED [id number] 11:28:00 Test Item Value Reference Range Interpretation Comments SED RATE BY MODIFIED WESTERGREN (test 6 mm/h < OR = 30 N code = SED RATE BY MODIFIED WESTERGREN) [facility][QL] CBC (INCLUDES DIFF/PLT)2020-01-16 11:28:00 Test Item Value Reference Range Interpretation Comments WHITE BLOOD CELL COUNT 7.1 {Thousand/u} 3.8-10.8 N (test code = WHITE BLOOD CELL COUNT) RED BLOOD CELL COUNT (test 4.28 {Million/uL} 3.80-5.10 N code = RED BLOOD CELL COUNT) HEMOGLOBIN; Normal (test 13.5 g/dl 11.7-15.5 N code = 16333-2) HEMATOCRIT; Normal (test 40.8 % 35.0-45.0 N code = 4544-3) MCV; Normal (test code = 95.3 fL 80.0-100.0 N 787-2) MCHC; Normal (test code = 33.1 g/dl 32.0-36.0 N 50060-8) RDW; Normal (test code = 12.8 % 11.0-15.0 N 788-0) PLATELET COUNT; Normal 256 {Thousand/u} 140-400 N (test code = 777-3) MPV; Normal (test code = 10.8 fL 7.5-12.5 N 09600-7) ABSOLUTE NEUTROPHILS (test 2904 {cells/uL} 2056-9007 N code = ABSOLUTE NEUTROPHILS) ABSOLUTE LYMPHOCYTES (test 3394 {cells/uL} 850-3900 N code = ABSOLUTE LYMPHOCYTES) ABSOLUTE MONOCYTES (test 575 {cells/uL} 200-950 N code = ABSOLUTE MONOCYTES) ABSOLUTE EOSINOPHILS (test 178 {cells/uL} 15-500 N code = ABSOLUTE EOSINOPHILS) ABSOLUTE BASOPHILS (test 50 {cells/uL} 0-200 N code = ABSOLUTE BASOPHILS) NEUTROPHILS (test code = 40.9 % N NEUTROPHILS) LYMPHOCYTES (test code = 47.8 % N LYMPHOCYTES) MONOCYTES; Normal (test 8.1 % N code = 28991-8) EOSINOPHILS; Normal (test 2.5 % N code = 16061-2) BASOPHILS; Normal (test 0.7 % N code = 96011-4) [facility]] SJOGRENS ANTIBODIES (SS-A,SS-B)2020-01-16 11:28:00 Test Item Value Reference Range Interpretation Comments SJOGRENS ANTIBODY (SS-A) (test code <1.0 NEG <1.0 NEG N = SJOGRENS ANTIBODY (SS-A)) SJOGRENS ANTIBODY (SS-B) (test code <1.0 NEG <1.0 NEG N = SJOGRENS ANTIBODY (SS-B)) [facility]] C-REACTIVE [id number] 11:28:00 Test Item Value Reference Range Interpretation Comments C-REACTIVE PROTEIN (test code = 8.8 mg/L <8.0 C-REACTIVE PROTEIN) [facility]] CMP [id number] 11:07:00 Test Item Value Reference Range Interpretation Comments GLUCOSE; Normal 93 mg/dl 65-139 N Non-fasting reference (test code = interval 1547-9) UREA NITROGEN 17 mg/dl 7-25 N (BUN) (test code = UREA NITROGEN (BUN)) CREATININE (test 0.91 mg/dl 0.50-0.99 N For patient s >49 years code = of age, the ref erence CREATININE) limitfor [place] is approximately 1 3% higher for peopleidentifie d as -Leia n. eGFR NON- 66 {ML/MIN/1.7} > OR = 60 N PRYDEINIG (test code = eGFR NON-) eGFR 76 {ML/MIN/1.7} > OR = 60 N PRYDEINIG (test code = eGFR ) BUN/CREATININE NOT APPLICABLE 6-22 RATIO (test code = BUN/CREATININE RATIO) SODIUM (test code 142 mmol/L 135-146 N = SODIUM) POTASSIUM (test 4.6 mmol/L 3.5-5.3 N code = POTASSIUM) CHLORIDE (test 104 mmol/L 98-110 N code = CHLORIDE) CARBON DIOXIDE 31 mmol/L 20-32 N (test code = CARBON DIOXIDE) CALCIUM (test 9.7 mg/dl 8.6-10.4 N code = CALCIUM) PROTEIN, TOTAL 6.7 g/dl 6.1-8.1 N (test code = PROTEIN, TOTAL) ALBUMIN (test 4.1 g/dl 3.6-5.1 N code = ALBUMIN) GLOBULIN (test 2.6 {G/DL CALC} 1.9-3.7 N code = GLOBULIN) ALBUMIN/GLOBULIN 1.6 {CALC} 1.0-2.5 N RATIO (test code = ALBUMIN/GLOBULIN RATIO) BILIRUBIN, TOTAL; 0.6 mg/dl 0.2-1.2 N Normal (test code = 32932-0) ALKALINE 91 u/l 33-130 N PHSPHATASE (test code = ALKALINE PHSPHATASE) AST; Normal (test 18 u/l 10-35 N code = 1916-6) ALT; Normal (test 20 u/l 6-29 N code = 1742-6) [facility] SED RATE BY MODIFIED [id number] 11:07:00 Test Item Value Reference Range Interpretation Comments SED RATE BY MODIFIED WESTERGREN (test 9 mm/h < OR = 30 N code = SED RATE BY MODIFIED WESTERGREN) [facility] CBC (INCLUDES DIFF/PLT)2019-05-27 11:07:00 Test Item Value Reference Range Interpretation Comments WHITE BLOOD CELL COUNT 7.7 {Thousand/u} 3.8-10.8 N (test code = WHITE BLOOD CELL COUNT) RED BLOOD CELL COUNT (test 4.50 {Million/uL} 3.80-5.10 N code = RED BLOOD CELL COUNT) HEMAGLOBIN; Normal (test 13.7 g/dl 11.7-15.5 N code = 40411-2) HEMATOCRIT; Normal (test 41.4 % 35.0-45.0 N code = 4544-3) MCV; Normal (test code = 92.0 fL 80.0-100.0 N 787-2) MCHC; Normal (test code = 33.1 g/dl 32.0-36.0 N 22071-0) RDW; Normal (test code = 12.2 % 11.0-15.0 N 788-0) PLATELET COUNT; Normal 284 {Thousand/u} 140-400 N (test code = 777-3) MPV; Normal (test code = 10.2 fL 7.5-12.5 N 12071-3) ABSOLUTE NEUTROPHILS (test 4027 {cells/uL} 9609-2045 N code = ABSOLUTE NEUTROPHILS) ABSOLUTE LYMPHOCYTES (test 2749 {cells/uL} 850-3900 N code = ABSOLUTE LYMPHOCYTES) ABSOLUTE MONOCYTES (test 639 {cells/uL} 200-950 N code = ABSOLUTE MONOCYTES) ABSOLUTE EOSINOPHILS (test 239 {cells/uL} 15-500 N code = ABSOLUTE EOSINOPHILS) ABSOLUTE BASOPHILS (test 46 {cells/uL} 0-200 N code = ABSOLUTE BASOPHILS) NEUTROPHILS (test code = 52.3 % N NEUTROPHILS) LYMPHOCYTES (test code = 35.7 % N LYMPHOCYTES) MONOCYTES; Normal (test 8.3 % N code = 06461-2) EOSINOPHILS; Normal (test 3.1 % N code = 90756-9) BASOPHILS; Normal (test 0.6 % N code = 95784-0) [facility]] C-REACTIVE [id number] 11:07:00 Test Item Value Reference Range Interpretation Comments C-REACTIVE PROTEIN (test code = 6.3 mg/L <8.0 N C-REACTIVE PROTEIN) [facility]] HEPATITIS B CORE AB [id number] 11:07:00 Test Item Value Reference Range Interpretation Comments HEPATITIS B CORE AB TOTAL; NON-REACTIVE NON-REACTIVE N Normal (test code = 76732-4) [facility][Q] QUANTIFERON( R)-TB GOLD PLUS, 1 [id number] 11:07:00 Test Item Value Reference Range Interpretation Comments QUANTIFERON( NEGATIVE NEGATIVE N Negative test r esult. M. R)-TB GOLD tuberculosis co mplex PLUS, 1 TUBE infection unlik blayne. (test code = QUANTIFERON( R)-TB GOLD PLUS, 1 TUBE) NIL (test code 0.02 {IU/ml} N = NIL) MITOGEN-NIL >10.00 N (test code = MITOGEN-NIL) TB1-NIL (test 0.00 {IU/ml} N code = TB1-NIL) TB2-NIL (test 0.01 {IU/ml} N The Nil tube v alue reflects code = the background TB2-NIL) interferongamma immune response of the patient's blood sample.Th is value has been subtracted from the patient'sdispla yed TB and Mitogen results . Lower than expected result s with the Mitogen tubepre vent false-negative Quantiferon readings bydete cting a patient with a potential immunesuppressi ve condition and/or suboptim al pre-analyticals pecimen handling. The T B1 Antigen tube is coated with theM. tuberculosis-sp ecific antigens design ed to elicitresponses from TB antigen primed CD4+ helperT-lymphoc ytes. The TB2 Antigen tub e is coated with theM. tuberculosis-sp ecific antigens design ed to elicitresponses from TB antigen primed CD4+ helper and CD8+cytotox ic T-lymphocytes. For additional info rmation, please refer tohttps://educa tion.[place]/f aq/DDE278(Th is link is leslie g provided for informational/e ducational purposes only.) [facility] CMP [id number] 09:31:00 Test Item Value Reference Range Interpretation Comments GLUCOSE; Normal 96 mg/dl 65-139 N Non-fasting reference (test code = interval 1547-9) UREA NITROGEN 16 mg/dl 7-25 N (BUN) (test code = UREA NITROGEN (BUN)) CREATININE (test 0.67 mg/dl 0.50-0.99 N For patient s >49 years code = of age, the ref erence CREATININE) limitfor Creati nine is approximately 1 3% higher for peopleidentifie d as -Leia n. eGFR NON- 92 {ML/MIN/1.7} > OR = 60 N PRYDEINIG (test code = eGFR NON-) eGFR 106 {ML/MIN/1.7} > OR = 60 N PRYDEINIG (test code = eGFR ) BUN/CREATININE NOT APPLICABLE 6-22 RATIO (test code = BUN/CREATININE RATIO) SODIUM (test code 141 mmol/L 135-146 N = SODIUM) POTASSIUM (test 4.3 mmol/L 3.5-5.3 N code = POTASSIUM) CHLORIDE (test 105 mmol/L 98-110 N code = CHLORIDE) CARBON DIOXIDE 27 mmol/L 20-32 N (test code = CARBON DIOXIDE) CALCIUM (test 9.6 mg/dl 8.6-10.4 N code = CALCIUM) PROTEIN, TOTAL 6.8 g/dl 6.1-8.1 N (test code = PROTEIN, TOTAL) ALBUMIN (test 4.1 g/dl 3.6-5.1 N code = ALBUMIN) GLOBULIN (test 2.7 {G/DL CALC} 1.9-3.7 N code = GLOBULIN) ALBUMIN/GLOBULIN 1.5 {CALC} 1.0-2.5 N RATIO (test code = ALBUMIN/GLOBULIN RATIO) BILIRUBIN, TOTAL; 0.6 mg/dl 0.2-1.2 N Normal (test code = 49932-4) ALKALINE 96 u/l 33-130 N PHSPHATASE (test code = ALKALINE PHSPHATASE) AST; Normal (test 19 u/l 10-35 N code = 1916-6) ALT; Normal (test 17 u/l 6-29 N code = 1742-6) [facility] CBC (INCLUDES DIFF/PLT)2018-07-23 09:31:00 Test Item Value Reference Range Interpretation Comments WHITE BLOOD CELL COUNT 7.2 {Thousand/u} 3.8-10.8 N (test code = WHITE BLOOD CELL COUNT) RED BLOOD CELL COUNT (test 4.47 {Million/uL} 3.80-5.10 N code = RED BLOOD CELL COUNT) HEMAGLOBIN; Normal (test 14.3 g/dl 11.7-15.5 N code = 16718-7) HEMATOCRIT; Normal (test 42.0 % 35.0-45.0 N code = 4544-3) MCV; Normal (test code = 94.0 fL 80.0-100.0 N 787-2) MCHC; Normal (test code = 34.0 g/dl 32.0-36.0 N 36966-2) RDW; Normal (test code = 12.6 % 11.0-15.0 N 788-0) PLATELET COUNT; Normal 279 {Thousand/u} 140-400 N (test code = 777-3) MPV; Normal (test code = 10.8 fL 7.5-12.5 N 39512-8) ABSOLUTE NEUTROPHILS (test 3622 {cells/uL} 8699-9057 N code = ABSOLUTE NEUTROPHILS) ABSOLUTE LYMPHOCYTES (test 2844 {cells/uL} 850-3900 N code = ABSOLUTE LYMPHOCYTES) ABSOLUTE MONOCYTES (test 490 {cells/uL} 200-950 N code = ABSOLUTE MONOCYTES) ABSOLUTE EOSINOPHILS (test 173 {cells/uL} 15-500 N code = ABSOLUTE EOSINOPHILS) ABSOLUTE BASOPHILS (test 72 {cells/uL} 0-200 N code = ABSOLUTE BASOPHILS) NEUTROPHILS (test code = 50.3 % N NEUTROPHILS) LYMPHOCYTES (test code = 39.5 % N LYMPHOCYTES) MONOCYTES; Normal (test 6.8 % N code = 99164-5) EOSINOPHILS; Normal (test 2.4 % N code = 31316-3) BASOPHILS; Normal (test 1.0 % N code = 02371-2) [facility] CMP [id number] 07:10:00 Test Item Value Reference Range Interpretation Comments GLUCOSE; Above 102 mg/dl 65-99 Fasting refer ence High Threshold interval For someone (test code = without known 1547-9) diabetes, a glu cose valuebetween 10 0 and 125 mg/dL is consistent withprediabetes and should be confi rmed with afollow-up test. UREA NITROGEN 17 mg/dl 7-25 N (BUN) (test code = UREA NITROGEN (BUN)) CREATININE (test 0.72 mg/dl 0.50-0.99 N For patient s >49 years code = of age, the ref erence CREATININE) limitfor Creati nine is approximately 1 3% higher for peopleidentifie d as -Leia n. eGFR NON- 88 {ML/MIN/1.7} > OR = 60 N PRYDEINIG (test code = eGFR NON-) eGFR 102 {ML/MIN/1.7} > OR = 60 N PRYDEINIG (test code = eGFR ) BUN/CREATININE NOT APPLICABLE 6-22 RATIO (test code = BUN/CREATININE RATIO) SODIUM (test code 143 mmol/L 135-146 N = SODIUM) POTASSIUM (test 4.6 mmol/L 3.5-5.3 N code = POTASSIUM) CHLORIDE (test 107 mmol/L 98-110 N code = CHLORIDE) CARBON DIOXIDE 30 mmol/L 20-32 N (test code = CARBON DIOXIDE) CALCIUM (test 9.4 mg/dl 8.6-10.4 N code = CALCIUM) PROTEIN, TOTAL 6.6 g/dl 6.1-8.1 N (test code = PROTEIN, TOTAL) ALBUMIN (test 4.0 g/dl 3.6-5.1 N code = ALBUMIN) GLOBULIN (test 2.6 {G/DL CALC} 1.9-3.7 N code = GLOBULIN) ALBUMIN/GLOBULIN 1.5 {CALC} 1.0-2.5 N RATIO (test code = ALBUMIN/GLOBULIN RATIO) BILIRUBIN, TOTAL; 0.5 mg/dl 0.2-1.2 N Normal (test code = 11163-6) ALKALINE 105 u/l 33-130 N PHSPHATASE (test code = ALKALINE PHSPHATASE) AST; Normal (test 17 u/l 10-35 N code = 1916-6) ALT; Normal (test 20 u/l 6-29 N code = 1742-6) [facility] SED RATE BY MODIFIED [id number] 07:10:00 Test Item Value Reference Range Interpretation Comments SED RATE BY MODIFIED WESTERGREN (test 2 mm/h < OR = 30 N code = SED RATE BY MODIFIED WESTERGREN) [facility] CBC (INCLUDES DIFF/PLT)2018-03-14 07:10:00 Test Item Value Reference Range Interpretation Comments WHITE BLOOD CELL COUNT 6.7 {Thousand/u} 3.8-10.8 N (test code = WHITE BLOOD CELL COUNT) RED BLOOD CELL COUNT (test 4.30 {Million/uL} 3.80-5.10 N code = RED BLOOD CELL COUNT) HEMAGLOBIN; Normal (test 13.3 g/dl 11.7-15.5 N code = 15791-5) HEMATOCRIT; Normal (test 39.8 % 35.0-45.0 N code = 4544-3) MCV; Normal (test code = 92.6 fL 80.0-100.0 N 787-2) MCHC; Normal (test code = 33.4 g/dl 32.0-36.0 N 86321-4) RDW; Normal (test code = 12.5 % 11.0-15.0 N 788-0) PLATELET COUNT; Normal 256 {Thousand/u} 140-400 N (test code = 777-3) MPV; Normal (test code = 10.3 fL 7.5-12.5 N 48284-2) ABSOLUTE NEUTROPHILS (test 3451 {cells/uL} 8665-2408 N code = ABSOLUTE NEUTROPHILS) ABSOLUTE LYMPHOCYTES (test 2513 {cells/uL} 850-3900 N code = ABSOLUTE LYMPHOCYTES) ABSOLUTE MONOCYTES (test 469 {cells/uL} 200-950 N code = ABSOLUTE MONOCYTES) ABSOLUTE EOSINOPHILS (test 228 {cells/uL} 15-500 N code = ABSOLUTE EOSINOPHILS) ABSOLUTE BASOPHILS (test 40 {cells/uL} 0-200 N code = ABSOLUTE BASOPHILS) NEUTROPHILS (test code = 51.5 % N NEUTROPHILS) LYMPHOCYTES (test code = 37.5 % N LYMPHOCYTES) MONOCYTES; Normal (test 7.0 % N code = 98960-4) EOSINOPHILS; Normal (test 3.4 % N code = 50510-7) BASOPHILS; Normal (test 0.6 % N code = 15209-4) [facility] C-REACTIVE [id number] 07:10:00 Test Item Value Reference Range Interpretation Comments C-REACTIVE PROTEIN (test code = 5.4 mg/L <8.0 N C-REACTIVE PROTEIN) [facility] CMP [id number] 13:00:00 Test Item Value Reference Range Interpretation Comments GLUCOSE; Normal 97 mg/dl 65-99 N Fasting refe rence (test code = interval 1547-9) UREA NITROGEN 11 mg/dl 7-25 N (BUN) (test code = UREA NITROGEN (BUN)) CREATININE (test 0.77 mg/dl 0.50-0.99 N For patient s >49 years code = of age, the ref erence CREATININE) limitfor Creati nine is approximately 1 3% higher for peopleidentifie d as -Leia n. eGFR NON- 81 {ML/MIN/1.7} > OR = 60 N PRYDEINIG (test code = eGFR NON-) eGFR 94 {ML/MIN/1.7} > OR = 60 N PRYDEINIG (test code = eGFR ) BUN/CREATININE NOT APPLICABLE 6-22 RATIO (test code = BUN/CREATININE RATIO) SODIUM (test code 143 mmol/L 135-146 N = SODIUM) POTASSIUM (test 4.3 mmol/L 3.5-5.3 N code = POTASSIUM) CHLORIDE (test 105 mmol/L 98-110 N code = CHLORIDE) CARBON DIOXIDE 28 mmol/L 20-31 N (test code = CARBON DIOXIDE) CALCIUM (test 9.6 mg/dl 8.6-10.4 N code = CALCIUM) PROTEIN, TOTAL 6.9 g/dl 6.1-8.1 N (test code = PROTEIN, TOTAL) ALBUMIN (test 4.2 g/dl 3.6-5.1 N code = ALBUMIN) GLOBULIN (test 2.7 {G/DL CALC} 1.9-3.7 N code = GLOBULIN) ALBUMIN/GLOBULIN 1.6 {CALC} 1.0-2.5 N RATIO (test code = ALBUMIN/GLOBULIN RATIO) BILIRUBIN, TOTAL; 0.9 mg/dl 0.2-1.2 N Normal (test code = 25103-8) ALKALINE 101 u/l 33-130 N PHSPHATASE (test code = ALKALINE PHSPHATASE) AST; Normal (test 29 u/l 10-35 N code = 1916-6) ALT; Normal (test 26 u/l 6-29 N code = 1742-6) [facility] CBC (INCLUDES DIFF/PLT)2017-07-05 13:00:00 Test Item Value Reference Range Interpretation Comments WHITE BLOOD CELL COUNT 5.9 {Thousand/u} 3.8-10.8 N (test code = WHITE BLOOD CELL COUNT) RED BLOOD CELL COUNT (test 4.63 {Million/uL} 3.80-5.10 N code = RED BLOOD CELL COUNT) HEMOGLOBIN; Normal (test 14.2 g/dl 11.7-15.5 N code = 37995-1) HEMATOCRIT; Normal (test 42.4 % 35.0-45.0 N code = 4544-3) MCV; Normal (test code = 91.6 fL 80.0-100.0 N 787-2) MCHC; Normal (test code = 33.5 g/dl 32.0-36.0 N 49307-6) RDW; Normal (test code = 12.7 % 11.0-15.0 N 788-0) PLATELET COUNT; Normal 264 {Thousand/u} 140-400 N (test code = 777-3) MPV; Normal (test code = 10.4 fL 7.5-12.5 N 17216-0) ABSOLUTE NEUTROPHILS (test 2655 {cells/uL} 1882-9111 N code = ABSOLUTE NEUTROPHILS) ABSOLUTE LYMPHOCYTES (test 2567 {cells/uL} 850-3900 N code = ABSOLUTE LYMPHOCYTES) ABSOLUTE MONOCYTES (test 448 {cells/uL} 200-950 N code = ABSOLUTE MONOCYTES) ABSOLUTE EOSINOPHILS (test 189 {cells/uL} 15-500 N code = ABSOLUTE EOSINOPHILS) ABSOLUTE BASOPHILS (test 41 {cells/uL} 0-200 N code = ABSOLUTE BASOPHILS) NEUTROPHILS (test code = 45 % N NEUTROPHILS) LYMPHOCYTES (test code = 43.5 % N LYMPHOCYTES) MONOCYTES; Normal (test 7.6 % N code = 19990-4) EOSINOPHILS; Normal (test 3.2 % N code = 54306-1) BASOPHILS; Normal (test 0.7 % N code = 86201-0) [facility] VITAMIN D, 25-HYDROXY, [id number] 13:00:00 Test Item Value Reference Range Interpretation Comments VITAMIN 35 ng/ml 30-100 N Vitamin D Statu s 25-OH D,25-OH,TOTAL,IA Vitamin D: Deficiency: (test code = VITAMIN <20 ng/ mLInsufficiency: D,25-OH,TOTAL,IA) 20 - 29 ng /mLOptimal: > or = 30 ng/mL F or 25-OH Vitamin D testi ng on patients on D2-supplementat ion and patients for wh om quantitation of D2 and D3 fractions is required, the QuestAssureD(TM )25-OH VIT D, (D2,D3), LC/MS/MS is recommended: order code 51745 (pat ients >2yrs). For mor e information on this test, go to:[email or web address] tiyuniel.ques tdiagnostics.co m/faq/FAQ 163(This link i s being provided for informational/e ducationa l purposes only .) [facility]
[2022-07-14] MEDS ORDERED: LIDOCAINE 1% MPF 5 ML VIAL ONE (12:20)
[2022-07-14] MEDS ORDERED: TDAP (DIPHTH,PERTUSS(ACELL),TET VAC) 0.5 ML VIAL IMVAC ONE (12:21)
[2022-07-14] MEDS ORDERED: BUPIVACAINE 0.5% PF 10 ML VIAL ONE (12:21)
--- NOTE | 2022-07-14 13:28 | ER ---
Nurse's Notes [facility] Name: Odette Aguilar Age: 72 yrs Sex: Female : 1950 Arrival Date: 07/14/2022 Time: 11:37 Bed 10 Private MD: Jose Ibarra B Diagnosis: Laceration without foreign body of left index finger without damage to nail Presentation: 07/14 11:53 Chief complaint: Patient states: laceration to L index finger that occurred 30 minutes ss ago with rotary blade. Coronavirus screen: Client denies travel out of the [place] in the last 14 days. Ebola Screen: Patient denies exposure to infectious person. Patient denies travel to an Ebola-affected area in the 21 days before illness onset. Initial Sepsis Screen: Does the patient meet any 2 criteria? No. Patient's initial sepsis screen is negative. Does the patient have a suspected source of infection? No. Patient's initial sepsis screen is negative. Risk Assessment: Do you want to hurt yourself or someone else? Patient reports no desire to harm self or others. Onset of symptoms was July 14, 2022. 11:53 Method Of Arrival: Ambulatory ss 11:53 Acuity: PAULA 4 ss Historical: - Allergies: 11:54 Sulfa (Sulfonamide Antibiotics); ss 11:54 Cipro; ss - Immunization history:: Last tetanus immunization: up to date. - Social history:: Smoking status: Patient denies any tobacco usage or history of. Screenin:07 [facility] ED Fall Risk Assessment (Adult) History of falling in the last 3 months, mb9 including since admission No falls in past 3 months (0 pts) Confusion or Disorientation No (0 pts) Intoxicated or Sedated No (0 pts) Impaired Gait No (0 pts) Mobility Assist Device Used No (0 pt) Altered Elimination No (0 pt) Score/Fall Risk Level 0 - 2 = Low Risk Oriented to surroundings, Maintained a safe environment, Educated pt \T\ family on fall prevention, incl call for assistance when getting out of bed. Abuse screen: Denies threats or abuse. Nutritional screening: No deficits noted. Tuberculosis screening: No symptoms or risk factors identified. Assessment: 12:10 General: Appears uncomfortable, Behavior is calm, cooperative, appropriate for age. mb9 Pain: Complains of pain in left index finger Pain does not radiate. Quality of pain is described as throbbing, Pain began suddenly, Is continuous, Aggravated by increased activity. Neuro: Level of Consciousness is awake, alert, obeys commands, Oriented to person, place, time, situation, Appropriate for age. Respiratory: Airway is patent Respiratory effort is even, unlabored, Respiratory pattern is regular, symmetrical. Derm: Skin is pink, warm \T\ dry. Musculoskeletal: Injury Description: Laceration sustained to left index finger is 0.5 to 2.5 cm long, not bleeding. 13:44 Reassessment: No changes from previously documented assessment. Patient and/or family mb9 updated on plan of care and expected duration. Pain level reassessed. Patient is alert, oriented x 3, equal unlabored respirations, skin warm/dry/pink. Patient states symptoms have improved. Vital Signs: 11:53 BP 138 / 74; Pulse 72; Resp 16; Temp 97.9; Pulse Ox 98% on R/A; Weight 99.79 kg; Height ss 5 ft. 5 in. (165.10 cm); Pain 0/10; 13:44 BP 128 / 78; Pulse 84; Resp 16; Pulse Ox 100% ; mb9 11:53 Body Mass Index 36.61 (99.79 kg, 165.10 cm) ED Course: 11:37 Patient arrived in ED. am2 11:37 Jose Ibarra MD is Private Physician. am2 11:49 Joanie Abebe FNP-C is [facility]. snw 11:49 Manjinder Montelongo MD is Attending Physician. snw 11:54 Triage completed. ss 11:54 Arm band placed on right wrist. ss 12:07 Bed in low position. Call light in reach. Side rails up X 1. Client placed on mb9 continuous cardiac and pulse oximetry monitoring. NIBP monitoring applied. 12:12 Kerline Connors, [place] is Primary Nurse. mb9 13:44 No provider procedures requiring assistance completed. Patient did not have IV access mb9 during this emergency room visit. Administered Medications: 12:24 Drug: Boostrix Tdap 0.5 ml Route: IM; Site: left deltoid; mb9 12:25 Follow up: [employer], expires 03/30/23, lot # [id number] mb9 12:24 Drug: Hibiclens (chlorhexidine) Liquid 4 % 1 application Route: Topical; Site: affected mb9 area; 13:35 Drug: Lidocaine (1 %) 5 mg Route: Infiltration; mb9 13:35 Drug: Marcaine (bupivacaine) (0.25 %) 1 vials Route: Infiltration; mb9 13:43 Drug: Neosporin (phyposqs-zefwnredwc-gpwtyamuq) Ointment 1 application Route: Topical; mb9 Site: affected area; Medication: 12:07 VIS not applicable for this client. mb9 Intake: Outcome: 13:28 Discharge ordered by MD. godfrey 13:44 Discharged to home ambulatory. mb9 13:44 Condition: stable 13:44 Discharge instructions given to patient, Instructed on discharge instructions, follow up and referral plans. Demonstrated understanding of instructions, follow-up care, medications, Prescriptions given X 1. 13:45 Patient left the ED. mb9 Signatures: Joanie Abebe, RECREATION SUPERINTENDENT-C RECREATION SUPERINTENDENT-Csnw Windy Guevara RN RN Jessica Sloan Mary Beth RN RN mb9 Corrections: (The following items were deleted from the chart) 11:55 11:54 Allergies: No Known Allergies; [facility]
--- NOTE | 2022-07-14 13:29 | EDPHYS ---
Physician Documentation [facility] Name: Odette Aguilar Age: 72 yrs Sex: Female : 1950 Arrival Date: 07/14/2022 Time: 11:37 Bed 10 Private MD: Jose Ibarra B ED Physician Manjinder Montelongo HPI: 07/14 12:19 This 72 yrs old Female presents to ER via Ambulatory with complaints of Finger Injury, snw Laceration. 12:19 The patient or guardian reports a laceration, clean. The complaints affect the DIP of snw left index finger. Onset: The symptoms/episode began/occurred acutely, this morning. Associated signs and symptoms: The patient has no apparent associated signs or symptoms. Severity of symptoms: At their worst the symptoms were mild, moderate. The patient has not experienced similar symptoms in the past. It is unknown whether or not the patient has recently seen a physician. needs Tetanus immunization. Historical: - Allergies: 11:54 Sulfa (Sulfonamide Antibiotics); ss 11:54 Cipro; ss - Immunization history:: Last tetanus immunization: up to date. - Social history:: Smoking status: Patient denies any tobacco usage or history of. ROS: 12:18 Constitutional: Negative for fever, chills, and weight loss, Eyes: Negative for injury, snw pain, redness, and discharge, ENT: Negative for injury, pain, and discharge, Neck: Negative for injury, pain, and swelling, Cardiovascular: Negative for chest pain, palpitations, and edema, Respiratory: Negative for shortness of breath, cough, wheezing, and pleuritic chest pain, Abdomen/GI: Negative for abdominal pain, nausea, vomiting, diarrhea, and constipation, Back: Negative for injury and pain, : Negative for injury, bleeding, discharge, and swelling, MS/Extremity: Negative for injury and deformity, Neuro: Negative for headache, weakness, numbness, tingling, and seizure, Psych: Negative for depression, anxiety, suicide ideation, homicidal ideation, and hallucinations. 12:18 Skin: Positive for laceration(s), of the lateral aspect of left pointer finger. Exam: 12:17 Constitutional: This is a well developed, well nourished patient who is awake, alert, snw and in no acute distress. Head/Face: Normocephalic, atraumatic. ENT: Nares patent. No nasal discharge, no septal abnormalities noted. Tympanic membranes are normal and external auditory canals are clear. Oropharynx with no redness, swelling, or masses, exudates, or evidence of obstruction, uvula midline. Mucous membranes moist. Neck: Trachea midline, no thyromegaly or masses palpated, and no cervical lymphadenopathy. Supple, full range of motion without nuchal rigidity, or vertebral point tenderness. No Meningismus. Cardiovascular: Regular rate and rhythm with a normal S1 and S2. No gallops, murmurs, or rubs. Normal PMI, no JVD. No pulse deficits. Respiratory: Lungs have equal breath sounds bilaterally, clear to auscultation and percussion. No rales, rhonchi or wheezes noted. No increased work of breathing, no retractions or nasal flaring. 12:17 Skin: injury, laceration(s), the wound is approximately 3 cm(s), with a depth of 2 cm(s), of the lateral aspect of left pointer finger. Vital Signs: 11:53 BP 138 / 74; Pulse 72; Resp 16; Temp 97.9; Pulse Ox 98% on R/A; Weight 99.79 kg; Height ss 5 ft. 5 in. (165.10 cm); Pain 0/10; 13:44 BP 128 / 78; Pulse 84; Resp 16; Pulse Ox 100% ; mb9 11:53 Body Mass Index 36.61 (99.79 kg, 165.10 cm) ss Laceration: 13:26 Wound Repair of 3cm ( 1.2in ) subcutaneous laceration to DIP of left index finger. snw Linear shaped.. Distal neuro/vascular/tendon intact. Anesthesia: Local anesthetic administered with 2 mls of 1% lidocaine, Local anesthetic administered with 2 mls of 0.25% marcaine. Wound prep: Moderate cleansing with hibiclenz by az. Skin closed with 5 5-0 Prolene using simple sutures and sterile technique. Dressed with Neosporin, tube gauze, non-adherent dressing. Patient tolerated well. MDM: 12:01 Patient medically screened. snw 13:30 Differential diagnosis: laceration. Data reviewed: vital signs, nurses notes. snw Counseling: I had a detailed discussion with the patient and/or guardian regarding: the historical points, exam findings, and any diagnostic results supporting the discharge/admit diagnosis, the presence of at least one elevated blood pressure reading (>120/80) during this emergency department visit, the need for outpatient follow up, to return to the emergency department if symptoms worsen or persist or if there are any questions or concerns that arise at home. Special discussion: I have referred the patient to see his PCP for further evaluation of high blood pressure. Based on the history and exam findings, there is no indication for further emergent testing or inpatient evaluation. I discussed with the patient/guardian the need to see the primary care provider for further evaluation of the symptoms. 07/14 12:11 Order name: Suture Tray Setup; Complete Time: 12:24 snw 07/14 13:30 Order name: Wound dressing; Complete Time: 13:43 snw Administered Medications: 12:24 Drug: Boostrix Tdap 0.5 ml Route: IM; Site: left deltoid; mb9 12:25 Follow up: [facility], expires 03/30/23, lot # [id number] mb9 12:24 Drug: Hibiclens (chlorhexidine) Liquid 4 % 1 application Route: Topical; Site: affected mb9 area; 13:35 Drug: Lidocaine (1 %) 5 mg Route: Infiltration; mb9 13:35 Drug: Marcaine (bupivacaine) (0.25 %) 1 vials Route: Infiltration; mb9 13:43 Drug: Neosporin ([id number]) Ointment 1 application Route: Topical; mb9 Site: affected area; Disposition Summary: 07/14/22 13:28 Discharge Ordered Location: Home snw Condition: Stable snw Diagnosis - Laceration without foreign body of left index finger without damage to nail snw Followup: snw - With: Emergency Department - When: 10 - 14 days - Reason: Staple/Suture removal Followup: snw - With: Private Physician - When: 2 - 3 days - Reason: Recheck today's complaints, Continuance of care, Re-evaluation by your physician Discharge Instructions: - Discharge Summary Sheet snw - Laceration Care, Adult snw - Form - Blood Pressure Record Sheet snw - How to Take Your Blood Pressure snw Forms: - Medication Reconciliation Form snw - Thank You Letter snw - Antibiotic Education snw - Prescription Opioid Use snw Prescriptions: - Diclofenac Sodium 75 mg Oral Tablet Sustained Release - take 1 tablet by ORAL route 2 times per day; 30 tablet; Refills: 0, Product snw Selection Permitted Signatures: Joanie Abebe FNP-C ABDIFATAH-Windy Hopkins RN RN ss Kerline Connors RN RN mb9 Corrections: (The following items were deleted from the chart) 11:55 11:54 Allergies: No Known Allergies; [facility]
== END 2022-07-14 13:45 | disposition home or self-care (01) ==
LOC: ER 11:30
PROC: 0HQGXZZ Repair Left Hand Skin, External Approach (ICD-10-PCS; principal; 2022-07-14)
DX: S61.211A Laceration without foreign body of left index finger without damage to nail, initial encounter (principal); Z88.1 Allergy status to other antibiotic agents; Z88.2 Allergy status to sulfonamides
CPT/HCPCS: 96372; 99283; 12002; J2001

== ENCOUNTER 2022-07-29 12:09 | Emergency (ER) | payer OTHER ==
--- OUTSIDE RECORDS SUMMARY | 2022-07-29 12:16 | XMS REPORT | Continuity of Care Document ---
:1950 Author Organization [facility] t Address [address] [place] [address] [place] [id number] Care Team Providers Name Role Phone Mann CLARK, Elena Primary Care Physician Shimon Ibarra Attending Clinician Unavailable MYRTLE PEREZ Attending Clinician Unavailable Elisa CLARK, Bolivar Grissom Attending Clinician Cate Paiz LVN Attending Clinician Unavailable SEAN JAIN Attending Clinician Unavailable HILDA GLOVER Attending Clinician Unavailable Only, Ang Db Test Attending Clinician Unavailable Hilda Berumen Attending Clinician Rosa Kingston MA Attending Clinician Unavailable MYRTLE PEREZ M.D. Attending Clinician Unavailable Lab, Adc Fam Pob I Attending Clinician Unavailable Lindy Lau Attending Clinician LINDY SINGH Attending Clinician Unavailable LOVE DAVIDSON Attending Clinician Unavailable Love Davidson PA-C Attending Clinician Payers Payer Name Policy Type Policy Number Effective Date Expiration Date S ource UHC MEDICARE [id number] 2020 ADVANTAGE 00:00:00 [place] [id number] Common HEALTHCARE [facility] UNITED [id number] 2020 HEALTHCARE 00:00:00 [facility] [id number] 2018 00:00:00 Problems Condition Condition Condition Status [...] 2016-05 Met hodi heart beat heart beat 05-26 st 00:00: Hospita 00 l Right hand Right hand Disease Active U nivers pain pain 1-12 ity of 00:00: [address] Branch [id number] Hip pain, Problem Active Comm on left [facility] [id number] Hip pain, Problem [place] [id number] [facility] [id number] Dysfunctio Problem Active C ommon [id number] n of left Spirit eustachian - [facility] tube [facility] [id number] Left ear Problem Active Commo n pain [facility] History of History of Problem Resolve UT [...] Sulfa Allergy Active Unknown UT Antibiot to 2-10 Health ics substanc 00:00: e 00 Ciproflo [...] reaction 00 l ics) s to drug Sulfa Allergy Active UT Drugs to drug Physici (finding ans ) 0 Drug Active Unknown Common allergy [facility] ciproflo ciproflo Active Unknown Commo n xacin xacin [facility] Family History Family Member Diagnosis Comments Start Date Stop Date Source Natural father Heart disease [facility] Natural father Hypertension [facility] Natural mother Diabetes [facility] Natural mother Hypertension [facility] Social History Social Habit Start Date Stop Date Quantity Comments Source History of [facility] - Tobacco Use [facility] Tobacco use and 2022-04-27 2022-04-27 Smokeless tobacco [facility] exposure 00:00:00 00:00:00 non-user Exposure to 2022-04-15 2022-04-25 Not sure [facility] SARS-CoV-2 00:00:00 08:06:00 (event) Alcohol intake 2022-03-13 2022-03-13 Current Religion 00:00:00 00:00:00 non-drinker of Hospital alcohol (finding) Sex Ass[birth year] Religion 00:00:00 00:00:00 Hospital Smoking Status Start Date Stop Date Source Never smoked tobacco Religion H ospital Medications Ordered Filled Start Stop Current Ordering Indication Dosage Frequency Signature Comments Components Source Medication Medication Date Date Medication? Clinician (SIG) Name Name cetirizine 2021-05 QD Chew 1 UT (ZyrTEC) 10 16 16 (one) time H ealth MG chewable [...] time 33 each day. methotrexat 2021-05 Yes [id number] 10mg Take 4 UT e 2.5 MG 2-16 tablets Health tablet 00:00: (10 mg 00 total) by mouth 1 (one) time per week. meloxicam 2021-05 Yes [id number] 15mg QD Take 1 U T (Mobic) 15 2-16 tablet (15 Hea lth MG tablet 00:00: mg total) 00 by mouth 1 (one) time each day. with food Upadacitini 2021-05 Yes [id number] 15mg QD Take 15 mg UT b ER 2-16 by mouth 1 Health (Rinvoq) 15 00:00: (one) time MG tablet 00 each day. sustained-r elease 24 hour folic acid 2021-05- No [id number] 1mg QD Take 1 UT (Folvite) 1 [...] 10:01: 00:00 Hospit a 34 :00 l TURMERIC 2021-05- No Take by Metho di ROOT 05-[address] EXTRACT 10:01: 00:00 Hospita ORAL 34 :00 l flaxseed 2021-05- Take by Metho di oil 1,000 05-13 [...] tablet 47 l extended release 24 hr cetirizine 2021-05 Yes 10mg QD Take 1 [...] ORAL) CYANOCOBALA 2021-05 Yes Take by Met luzi MIN, 05-[address] VITAMIN 09:12: Hospita B-12, 37 l (VITAMIN B-12 ORAL) upadacitini 2021-05 Yes 15mg QD Take 15 mg Methodi b (Rinvoq) 05-[address] 15 mg 09:12: daily. Hospita tablet 37 l extended release 24 hr ER tablet VITAMIN B 2021-05 Yes Take by Metho [...] extended release 24 hr ER tablet meloxicam 0 2021- No [id number] TAKE 1 UT (Mobic) 15 02-05 12-16 TABLET BY Hea lth MG tablet 00:00: 00:00 MOUTH 00 :00 EVERY DAY WITH FOOD cycloSPORIN 2021-0 Yes Q12H every 12 UT E 8-15 (twelve) Health (Restasis) 13:53: hours. Use 0.05 % 12 as ophthalmic directed emulsion SUPER B 0 Yes QD Take by UT COMPLEX & C 8-15 mouth 1 Healt h tablet 13:52: (one) time 32 each day. dexlansopra 0 Yes 1 (one) UT zole 8-15 time [...] 32 same time. 1 tablet daily Mirabegron 0 Yes 1 (one) UT ER 8-15 time each Health (Myrbetriq) 13:52: day at the 50 MG 32 same time. tablet 1 tablet sustained-r daily elease 24 hour Zinc 50 MG 0 Yes 50mg 50 mg. 1 UT tablet 8-15 tablet Health 13:52: daily 32 Vitamin D, 2021-0 Yes Take by UT Cholecalcif 8-15 mouth. 4 Heal th alina, 25 13:52: tablets MCG (1000 32 daily UT) tablet MAGNESIUM 0 Yes QD 1 (one) UT PO 8-15 time each Health 13:52: day. 2 32 tablets daily cetirizine 2021-0 Yes QD Chew 1 UT (ZyrTEC) 10 8-15 (one) time He alth MG chewable 13:52: each day. tablet 32 Ascorbic 2021-0 Yes 500mg QD Take 500 UT Acid 8-15 mg by Health (vitamin C) 13:52: mouth 1 500 MG 32 (one) time tablet each day. Upadacitini 0 Yes [id number] 15mg QD Take 15 mg UT b ER 8-15 by mouth 1 Health (Rinvoq) 15 00:00: (one) time MG tablet 00 each day. sustained-r elease 24 hour Upadacitini 2- No [id number] 15mg QD Take 15 mg UT b ER 8-15 12-16 by mouth 1 Health (Rinvoq) 15 00:00: 00:00 (one) time MG tablet 00 :00 each day. sustained-r elease 24 hour doxycycline 2021- No [id number] 100mg Q.5D Take 1 UT (Vibramycin 8-15 08-23 capsule Heal th ) 100 MG 00:00: 04:59 (100 mg [...] 500 MG 00 24 hr tablet Secukinumab 0 Yes [id number] Inject 300 UT , 300 MG 7-27 mg Health Dose, 00:00: subcutaneo (Cosentyx 00 us q4 Sensoready, weeks 300 MG,) 150 MG/ML solution auto-inject or Secukinumab 0 Yes [id number] Inject 300 UT , 300 MG 7-27 mg Health Dose, 00:00: subcutaneo (Cosentyx 00 us q4 Sensoready, weeks 300 MG,) 150 MG/ML solution auto-inject or Secukinumab 2021-0 Yes [id number] Inject 300 UT , 300 MG 7-03 mg Health Dose, 00:00: subcutaneo (Cosentyx 00 us q4 Sensoready, weeks 300 MG,) 150 MG/ML solution auto-inject or meloxicam Yes TAKE 1 U T (Mobic) 15 6-25 TABLET BY Heal th MG tablet 00:00: MOUTH 00 EVERY DAY WITH FOOD meloxicam Yes TAKE 1 U T (Mobic) 15 6-25 TABLET BY Heal th MG tablet 00:00: MOUTH 00 EVERY DAY WITH FOOD cetirizine 2021-0 Yes QD Chew 1 UT (ZyrTEC) 10 4-07 (one) time He alth MG chewable 11:51: each day. tablet 36 Ascorbic 0 Yes 500mg QD Take 500 UT Acid 4-07 mg by Health (vitamin C) 11:51: mouth 1 500 MG 36 (one) time tablet each day. cetirizine 0 Yes QD Chew 1 UT (ZyrTEC) 10 4-07 (one) time He alth MG chewable 11:51: each day. tablet 36 Ascorbic 0 Yes 500mg QD Take 500 UT Acid 4-07 mg by Health (vitamin C) 11:51: mouth 1 500 MG 36 (one) time tablet each day. SUPER B Yes QD Take by UT COMPLEX & C 4-07 mouth 1 Healt h tablet 11:50: (one) time 51 each day. Mirabegron 0 Yes 1 (one) UT ER 4-07 time each Health (Myrbetriq) 11:50: day at the 50 MG 51 same time. tablet 1 tablet sustained-r daily elease 24 hour Zinc 50 MG 0 Yes 50mg 50 mg. 1 UT tablet 4-07 tablet Health 11:50: daily 51 Vitamin D, 0 Yes Take by UT Cholecalcif 4-07 mouth. 4 alina, 11:50: tablets MCG (1000 51 daily UT) tablet SUPER B 0 Yes QD Take by UT COMPLEX & C 4-07 mouth 1 Healt h tablet 11:50: (one) time 51 each day. Mirabegron 2021-0 Yes 1 (one) UT ER 4-07 time each Health (Myrbetriq) 11:50: day at the 50 MG 51 same time. tablet 1 tablet sustained-r daily elease 24 hour Zinc 50 MG 0 Yes 50mg 50 mg. 1 UT tablet 4-07 tablet Health 11:50: daily 51 Vitamin D, 0 Yes Take by UT Cholecalcif 4-07 mouth. 4 alina, 11:50: tablets MCG (1000 51 daily UT) tablet cycloSPORIN 2022-0 Yes Q12H every 12 UT E 4-07 (twelve) Health (Restasis) 11:49: hours. Use 0.05 % 16 as ophthalmic directed emulsion dexlansopra 2022-0 Yes 1 (one) UT zole 4-07 time each Health (Dexilant) 11:49: day at the [address] 16 same time. capsule 1 capsule daily levothyroxi 2022-0 Yes 1 (one) UT ne 4-07 time each Health (Synthroid, 11:49: day at the Levoxyl) 16 same time. 175 MCG 1 tablet tablet daily losartan 2-0 Yes 1 (one) UT (Cozaar) 25 4-07 time each Hea lth MG tablet 11:49: day at the 16 same time. 1 tablet daily MAGNESIUM 2022-0 Yes 2 tablets UT PO 4-07 daily Health 11:49: 16 cycloSPORIN 2022-0 Yes Q12H every 12 UT E 4-07 (twelve) Health (Restasis) 11:49: hours. Use 0.05 % 16 as ophthalmic directed emulsion dexlansopra 2-0 Yes 1 (one) UT zole 4-07 time each Health (Dexilant) 11:49: day at the [address] 16 same time. capsule 1 capsule daily levothyroxi 2022-0 Yes 1 (one) UT ne 4-07 time each Health (Synthroid, 11:49: day at the Levoxyl) 16 same time. 175 MCG 1 tablet tablet daily losartan 2-0 Yes 1 (one) UT (Cozaar) 25 4-07 time each Hea lth MG tablet 11:49: day at the 16 same time. 1 tablet daily MAGNESIUM 2022-0 Yes 2 tablets UT PO 4-07 daily Health 11:49: 16 meloxicam 2022-0 Yes [id number] TAKE 1 U T (Mobic) 15 3-25 TABLET BY Heal th MG tablet 00:00: MOUTH 00 EVERY DAY WITH FOOD Mirabegron 2022-0 Yes QD 1 (one) UT ER 2-19 time each Health (Myrbetriq) 00:00: day. 25 MG 00 tablet sustained-r elease 24 hour Mirabegron 2022-0 Yes QD 1 (one) UT ER 2-19 time each Health (Myrbetriq) 00:00: day. 25 MG 00 tablet sustained-r elease 24 hour Mirabegron 2-0 Yes QD 1 (one) UT ER 2-19 time each Health (Myrbetriq) 00:00: day. 25 MG 00 tablet sustained-r elease 24 hour Mirabegron 2-0 Yes QD 1 (one) UT ER 2-19 time each Health (Myrbetriq) 00:00: day. 25 MG 00 tablet sustained-r elease 24 hour alpha 2021-0 2021- No 1000U Take 1,000 UT tocopherol 05-18- Units by [facility] (Vitamin E) 09:07: 00:00 mouth. 1 1000 units 55 :00 capsule capsule daily calcium 2021-0 2022- No 1 tablet UT carbonate 05-18 daily Health (Os-Ibeth) 09:07: 00:00 600 MG 45 :00 tablet SUPER B 0 Yes Take by UT COMPLEX & C 1- mouth. As Hea lth tablet 08:42: needed 16 cycloSPORIN 2021-0 Yes Q12H every 12 UT E 1-06 (twelve) Health (Restasis) 08:42: hours. Use 0.05 % 16 as ophthalmic directed emulsion dexlansopra 0 Yes 1 (one) UT zole 1-06 time each Health (Dexilant) 08:42: day at the [address] 16 same time. capsule 1 capsule daily levothyroxi 0 Yes 1 (one) UT ne 1-06 time each Health (Synthroid, 08:42: day at the Levoxyl) 16 same time. 175 MCG 1 tablet tablet daily losartan 0 Yes 1 (one) UT (Cozaar) 25 1-06 time each Hea lth MG tablet 08:42: day at the 16 same time. 1 tablet daily Mirabegron 2021-0 Yes 1 (one) UT ER 1-06 time each Health (Myrbetriq) 08:42: day at the 50 MG 16 same time. tablet 1 tablet sustained-r daily elease 24 hour Zinc 50 MG 2021-0 Yes 50mg 50 mg. 1 UT tablet 1-06 tablet Health 08:42: daily 16 Vitamin D, 2021-0 Yes Take by UT Cholecalcif 1-06 mouth. 4 Heal th alina, 25 08:42: tablets MCG (1000 16 daily UT) tablet MAGNESIUM Yes Take by UT PO 1-06 mouth. 3 Health 08:42: tablets 16 daily Secukinumab Yes [id number] Inject 300 UT , 300 MG 1-06 mg Health Dose, 00:00: subcutaneo (Cosentyx 00 us week Sensoready, 0,1, 2, 3, 300 MG,) 4 then 300 150 MG/ML mg solution subcutaneo auto-inject us q4 or weeks thereafter Secukinumab Yes [id number] Inject 300 UT , 300 MG 1-06 mg Health Dose, 00:00: subcutaneo (Cosentyx 00 us week Sensoready, 0,1, 2, 3, 300 MG,) 4 then 300 150 MG/ML mg solution subcutaneo auto-inject us q4 or weeks thereafter Secukinumab 2021- No [id number] Inject 300 UT , 300 MG 1-06 07-03 mg Health Dose, 00:00: 00:00 subcutaneo (Cosentyx 00 :00 us week Sensoready, 0,1, 2, 3, 300 MG,) 4 then 300 150 MG/ML mg solution subcutaneo auto-inject us q4 or weeks thereafter meloxicam 2020-05 Yes [id number] TAKE 1 U T (Mobic) 15 2-13 TABLET BY Heal th MG tablet 00:00: MOUTH 00 EVERY DAY WITH FOOD meloxicam 2020-05 Yes [id number] TAKE 1 U T (Mobic) 15 2-13 TABLET BY Heal th MG tablet 00:00: MOUTH 00 EVERY DAY WITH FOOD Upadacitini 2020-05- No [id number] 15mg QD Take 15 mg UT b ER 0-19 01-18 by mouth 1 Health (Rinvoq) 15 00:00: 05:59 (one) time MG tablet 00 :00 each day. sustained-r elease 24 hour Upadacitini 2020-05- No [id number] 15mg QD Take 15 mg UT b ER 0-19 01-18 by mouth 1 Health (Rinvoq) 15 00:00: 05:59 (one) time MG tablet 00 :00 each day. sustained-r elease 24 hour Upadacitini 2020-05- No [id number] 15mg QD Take 15 mg UT b ER 0-19 -18 by mouth 1 Health (Rinvoq) 15 00:00: 05:59 (one) time MG tablet 00 :00 each day. sustained-r elease 24 hour Upadacitini 2020- No [id number] 15mg QD Take 15 mg UT b [...] same time. tablet 1 tablet daily losartan Yes 1 (one) UT (Cozaar) 25 - time each Hea lth MG tablet 09:31: day at the 54 same time. 1 tablet daily Mirabegron Yes 1 (one) UT ER 7- time each Health (Myrbetriq) 09:31: day at the 50 MG 54 same time. tablet 1 tablet sustained-r daily elease 24 hour alpha Yes 1000U Take 1,000 UT tocopherol 7 Units by Healt h (Vitamin E) 09:31: mouth. 1 1000 units 54 capsule capsule daily Zinc 50 MG Yes 50mg 50 mg. 1 UT tablet 11-10 tablet Health 09:31: daily 54 Vitamin D, Yes Take by [place] Cholecalcif 11-10 mouth. 4 Heal th alina, 25 09:31: tablets MCG (1000 54 daily UT) tablet MAGNESIUM 0 Yes Take by UT PO 7- mouth. 3 Health 09:31: tablets 54 daily SUPER B Yes Take by UT COMPLEX & C 11-10 mouth. As Hea lth tablet 09:31: needed 54 calcium 0 Yes 1 tablet UT carbonate 11-10 daily Health (Os-Ibeth) 09:31: 600 MG 54 tablet cycloSPORIN 0 Yes Q12H every 12 UT E 11-10 (twelve) Health (Restasis) 09:31: hours. Use 0.05 % 54 as ophthalmic directed emulsion dexlansopra 0 Yes 1 (one) UT zole 11-10 time each Health (Dexilant) 09:31: day at the [address] 54 same time. capsule 1 capsule daily levothyroxi 0 Yes 1 (one) UT ne 11-10 time each Health (Synthroid) 09:31: day at the 175 MCG 54 same time. tablet 1 tablet daily losartan 0 Yes 1 (one) UT (Cozaar) 25 11-10 time each Hea lth MG tablet 09:31: day at the 54 same time. 1 tablet daily Mirabegron 0 Yes 1 (one) UT ER 11-10 time each Health (Myrbetriq) 09:31: day at the 50 MG 54 same time. tablet 1 tablet sustained-r daily elease 24 hour alpha 0 Yes 1000U Take 1,000 UT [facility] 09:31: mouth. 1 1000 units 54 capsule capsule daily Zinc 50 MG 0 Yes 50mg 50 mg. 1 UT tablet 11-10 tablet Health 09:31: daily 54 Vitamin D, 2020-0 Yes Take by UT Cholecalcif 7- mouth. 4 alina 09:31: tablets MCG (1000 54 daily UT) tablet MAGNESIUM 0 Yes Take by UT PO 7- mouth. 3 Health 09:31: tablets 54 daily meloxicam 0 Yes 15mg QD Take 15 mg UT (Mobic) 15 4-25 by mouth 1 Hea lth MG tablet 00:00: (one) time 00 each day. 1 tablet daily meloxicam 2021-0 202- No 15mg QD Take 15 mg U T (Mobic) 15 4-25 12-13 by mouth 1 He alth MG tablet 00:00: 00:00 (one) time 00 :00 each day. 1 tablet daily Premarin Yes Use as UT vaginal 4-22 directed Health cream 00:00: 00 Premarin 0 Yes Use as UT vaginal 4-22 directed Health cream 00:00: 00 Premarin 0 2021- No Use as UT vaginal 4-22 01-06 directed Health cream 00:00: 00:00 00 :00 Diclofenac 2020-0 Yes As needed UT Sodium 3-18 Health (Voltaren) 00:00: 1 % 00 external gel Diclofenac 0 Yes As needed UT Sodium 3-18 Health [...] 00 external gel Rinvoq 15 Rinvoq 15 2019-1 Yes MYRTLE 1 QD TAKE 1 UT [...] blister 00 DAILY l with device DIRECTED Flovent 2020-1 Yes INHALE BY Metho di [...] 00:00: Hospita mcg/actuati 00 l on inhaler albuterol 2020-1 Yes 2{puff} Inhale 2 M ethodi (PROAIR 0-[address] HFA) 90 00:00: Hospita mcg/actuati 00 l on inhaler meloxicam 2020-1 Yes 15mg QD Take 15 mg Me [facility] (MOBIC) 15 0-[address] mg tablet 00:00: daily. Hospit a 00 with food l - meloxicam 2020-1 Yes 15mg QD Take 15 mg [facility] (MOBIC) 15 0-[address] mg tablet 00:00: daily. Hospit a 00 with food l - Icosapent 2020-0 Yes Q12H every 12 UT Ethyl 8-02 ([facility]) [facility] (Vascepa) 1 00:00: hours. 2 g capsule 00 capsules daily Icosapent 2020-0 Yes Q12H every 12 UT Ethyl 8-02 ([facility]) Health (Vascepa) 1 00:00: hours. 2 g capsule 00 capsules daily Icosapent 2020-0 Yes Q12H every 12 UT Ethyl 8-02 ([facility]) Health (Vascepa) 1 00:00: hours. 2 g capsule 00 capsules daily Icosapent 2020-0 Yes Q12H every 12 UT Ethyl 8-02 ([facility]) Health (Vascepa) 1 00:00: hours. 2 g capsule 00 capsules daily Icosapent 2020-0 Yes Q12H every 12 UT Ethyl 8-02 ([facility]) Health (Vascepa) 1 00:00: hours. 2 g capsule 00 capsules daily Icosapent 2020-0 Yes Q12H every 12 UT Ethyl 8-02 ([facility]) Health (Vascepa) 1 00:00: hours. 2 g capsule 00 capsules daily Icosapent 2020-0 Yes Q12H every 12 UT Ethyl 8-02 ([facility]) Health (Vascepa) 1 00:00: hours. 2 g capsule 00 capsules daily Vascepa 1 2019-0 Yes TAKE 2 Method i gram 8-[address] capsule 00:00: BY MOUTH Hospit a 00 TWICE A l DAY WITH MEALS Vascepa 1 2019-0 Yes TAKE 2 Method i gram 8-[address] capsule 00:00: BY MOUTH Hospit a 00 TWICE A l DAY WITH MEALS SYNTHROID 2016-05 Yes Methodi 175 mcg 1-13 st tablet 00:00: Hospita 00 l SYNTHROID 2016-05 Yes Methodi 175 mcg 1-13 st tablet 00:00: Hospita 00 l DEXILANT 60 2016-05 Yes 60mg QD Take 1 Meth natasha mg capsule 1-[address] 00:00: mouth once Hospita 00 daily. l DEXILANT 60 2016-05 Yes 60mg QD Take 1 Meth natasha mg capsule 1-[address] 00:00: mouth once Hospita 00 daily. l RESTASIS 2016-05 Yes INSTILL 1 Meth natasha 0.05 % 0-[address] ophthalmic 00:00: EACH EYE [facility] emulsion 00 TWICE l DAILY RESTASIS 2016-05 Yes INSTILL 1 Meth natasha 0.05 % 0-[address] ophthalmic 00:00: EACH EYE [facility] emulsion 00 TWICE l DAILY losartan Yes 25mg QD Take 25 mg Met hodi (COZAAR) 25 9-[address] MG tablet 00:00: once Hospita 00 daily. l losartan Yes 25mg QD Take 25 mg [...] by ity o f capsule 14:56: mouth [place] 48 daily. Medical Branch flaxseed Yes Take by Univer s 1,000 mg 1-26 mouth. ity of Cap 14:56: [place] [address] Medical Branch GLUC Yes Take by Univers HCL/GLUC 1-26 mouth. ity of BARBOSA/AC-ALP-D 14:56: [place] -GLUC 48 Medical (GLUCOSAMIN Branch E COMPLEX ORAL) levothyroxi Yes 150ug Take 150 U nivers ne 1-26 mcg by ity of (SYNTHROID) 14:56: mouth [place] 150 mcg 48 every Medical tablet morning. Branch aspirin Yes 81mg Take 81 mg Univ ers (ASPIR-LOW) 1-26 by mouth ity of 81 mg EC 14:56: daily. [place] tablet Medical Branch traMADOL 50 Yes 50mg Take 50 mg Univers mg tablet 06-07 by mouth ity of 14:56: every 6 [place] [address] (six) Medical hours as Branch needed. CYANOCOBALA Yes Place [facility]/COBAMAM 06-07 under the ity of DENYS (B12 14:56: tongue. [facility]) Medical Branch Cranberry Yes Take by [facility] rs 400 mg Cap 06-07 mouth. ity of 14:56: [place] [address] Medical Branch Vitamin B Yes Take by [facility] rs Comp & C 06-07 mouth. ity of No.4 (SUPER 14:56: [place] B COMPLEX + Medical C) 150 mg Branch Tab CALCIUM Yes Take by [facility] CARB/MAGNES 06-07 mouth. ity of IUM CARB 14:56: [place] (CALCIUM & 48 Medical MAGNESIUM Branch CARBONATES ORAL) B Yes Take by [facility] INFANTIS/B 06-07 mouth. ity of ANI/B ELHAM/B 14:56: [place] BIFID Medical (PROBIOTIC Branch 4X ORAL) DOCOSAHEXAN Yes Take by [facility] vers OIC 06-07 mouth. ity of ACID/EPA 14:56: [place] (FISH OIL 48 Medical ORAL) Branch CINNAMON Yes Take by [facility] BARK 06-07 mouth. ity of (CINNAMON 14:56: [facility]) 48 Medical Branch vitamin E Yes 1000U Take 1,000 U nivers 1,000 unit 06-07 Units by ity o f capsule 14:56: mouth [place] [address] daily. Medical Branch flaxseed 2017 Yes Take by [facility] s 1,000 mg 06-07 mouth. ity of Cap 14:56: [place] [address] Medical Branch GLUC Yes Take by [facility] HCL/GLUC 06-07 mouth. ity of BARBOSA/AC-ALP-D 14:56[facility] (GL[facility] E COMPLEX ORAL) levothyroxi Yes 150ug Take 150 U nivers ne - mcg by ity of (SYNTHROID) 14:56: mouth [place] 150 mcg 48 every Medical tablet morning. Branch aspirin 2017-0 Yes 81mg Take 81 mg Univ ers (ASPIR-LOW) 06-07 by mouth ity of 81 mg EC 14:56: daily. [place] tablet Medical Branch traMADOL 50 Yes 50mg Take 50 mg Univers mg tablet 06-07 by mouth ity of 14:56: every 6 [place] [address] (six) Medical hours as Branch needed. CYANOCOBALA Yes Place Unive rs MIN/COBAMAM 06-07 under the ity of DENYS (B12 14:56: tongue. [place] SL) Medical Branch Cranberry Yes Take by [facility] rs 400 mg Cap 06-07 mouth. ity of 14:56: [place] [address] Medical Branch Vitamin B Yes Take by [facility] rs Comp & C 06-07 mouth. ity of No.4 (SUPER 14:56: [place] B COMPLEX + Medical C) 150 mg Branch Tab CALCIUM Yes Take by [facility] CARB/MAGNES 06-07 mouth. ity of IUM CARB 14:56: [place] (CALCIUM & Medical MAGNESIUM Branch CARBONATES ORAL) B Yes Take by [facility] INFANTIS/B 06-07 mouth. ity of ANI/B ELHAM/B 14:56: [place] BIFID Medical (PROBIOTIC Branch 4X ORAL) DOCOSAHEXAN Yes Take by [facility] vers OIC 06-07 mouth. ity of ACID/EPA 14:56: [place] (FISH OIL 48 Medical ORAL) Branch CINNAMON Yes Take by [facility] s BARK 06-07 mouth. ity of (CINNAMON 14:56: [place] ORAL) 48 Medical Branch vitamin E Yes 1000U Take 1,000 U nivers 1,000 unit 06-07 Units by ity o f capsule 14:56: mouth [place] [address] daily. Medical Branch flaxseed 2017 Yes Take by [facility] s 1,000 mg 06-07 mouth. ity of Cap 14:56: [place] [address] Medical Branch GLUC Yes Take by [facility] HCL/GLUC 06-07 mouth. ity of BARBOSA/AC-ALP-D 14:56: [facility] (GLUC[facility]IN Branch E COMPLEX ORAL) levothyroxi Yes 150ug Take 150 U nivers ne - mcg by ity of (SYNTHROID) 14:56: mouth [place] 150 mcg 48 every Medical tablet morning. Branch aspirin Yes 81mg Take 81 mg Univ ers (ASPIR-LOW) 06-07 by mouth ity of 81 mg EC 14:56: daily. [place] tablet Medical Branch traMADOL 50 Yes 50mg Take 50 mg Univers mg tablet 06-07 by mouth ity of 14:56: every 6 [place] [address] (six) Medical hours as Branch needed. CYANOCOBALA Yes Place [facility] MIN/COBAMAM 06-07 under the ity of DENYS (B12 14:56: tongue. [facility]) Medical Branch Cranberry Yes Take by [facility] rs 400 mg Cap 06-07 mouth. ity of 14:56: [place] [address] Medical Branch Vitamin B Yes Take by [facility] rs Comp & C 06-07 mouth. ity of No.4 (SUPER 14:56: [place] B COMPLEX + Medical C) 150 mg Branch Tab CALCIUM Yes Take by [facility] CARB/MAGNES 06-07 mouth. ity of IUM CARB 14:56: [place] (CALCIUM & Medical MAGNESIUM Branch CARBONATES ORAL) B Yes Take by [facility] INFANTIS/B 06-07 mouth. ity of ANI/B ELHAM/B 14:56: [place] BIFID Medical (PROBIOTIC Branch 4X ORAL) DOCOSAHEXAN Yes Take by [facility] vers OIC 06-07 mouth. ity of ACID/EPA 14:56: [place] (FISH OIL 48 Medical ORAL) Branch CINNAMON Yes Take by [facility] s BARK 06-07 mouth. ity of (CINNAMON 14:56: [facility]) 48 Medical Branch vitamin E Yes 1000U Take 1,000 U nivers 1,000 unit 06-07 Units by ity o f capsule 14:56: mouth [place] [address] daily. Medical Branch flaxseed Yes Take by [facility] s 1,000 mg 06-07 mouth. ity of Cap 14:56: [place] [address] Medical Branch GLUC Yes Take by [facility] HCL/GLUC 06-07 mouth. ity of BARBOSA/AC-ALP-D 14:56[facility] (GLUCOS[facility] Branch E COMPLEX ORAL) levothyroxi Yes 150ug Take 150 U nivers ne - mcg by ity of (SYNTHROID) 14:56: mouth [place] 150 mcg 48 every Medical tablet morning. Branch aspirin Yes 81mg Take 81 mg Univ ers (ASPIR-LOW) - by mouth ity of 81 mg EC 14:56: daily. [place] tablet Medical Branch traMADOL 50 Yes 50mg Take 50 mg Univers mg tablet 06-07 by mouth ity of 14:56: every 6 [place] [address] (six) Medical hours as Branch needed. CYANOCOBALA [address] Unive rs MIN/COBAMAM 06-07 under the ity of DENYS (B12 14:56: tongue. [place] SL) Medical Branch Cranberry Yes [facility] Cap 06-07 mouth. ity of 14:56: [place] [address] Medical Branch Vitamin B Yes Take [facility] Comp & C 06-07 mouth. ity of No.4 (SUPER 14:56: [place] B COMPLEX + Medical C) 150 mg Branch Tab CALCIUM Yes Take by [facility] CARB/MAGNES 06-07 mouth. ity of IUM CARB 14:56: [place] (CALCIUM & 48 Medical MAGNESIUM Branch CARBONATES ORAL) B Yes Take by [facility] INFANTIS/B 06-07 mouth. ity of ANI/B ELHAM/B 14:56: [place] BIFID Medical (PROBIOTIC Branch 4X ORAL) DOCOSAHEXAN Yes Take by [facility] vers OIC 06-07 mouth. ity of ACID/EPA 14:56: [place] (FISH OIL 48 Medical ORAL) Branch CINNAMON Yes Take by [facility] s BARK 06-07 mouth. ity of (CINNAMON 14:56: [place] ORAL) 48 Medical Branch diclofenac 2017-0 Yes 75mg Take 1 Unive rs 75 mg EC -26 tablet by ity of tablet 00:00: mouth 2 [place] [address] (two) Medical times Branch daily with meals. diclofenac 2017-0 Yes 75mg Take 1 Unive rs 75 mg EC 1-26 tablet by ity of tablet 00:00: mouth 2 [place] 00 (two) Medical times Branch daily with meals. diclofenac 2017-0 Yes 75mg Take 1 Unive rs 75 mg EC 1-26 tablet by ity of tablet 00:00: mouth 2 [place] 00 (two) Medical times Branch daily with meals. diclofenac 2017-0 Yes 75mg Take 1 Unive rs 75 mg EC -26 tablet by ity of tablet 00:00: mouth 2 (two) Medical times [place] daily with meals. zolpidem 2017-[address] Univers 1.75 mg 1-12 under the ity of Subl 14:14: tongue. [address] zolpidem 2017-[address] Univers 1.75 mg 1-12 under the ity of Subl 14:14: tongue. [address] zolpidem 2017-[address] [facility] 1.75 mg 1-12 under the ity of Subl 14:14: tongue. [address] zolpidem 2016-[address] [facility] 1.75 mg 1-12 under the ity of Subl 14:14: tongue. [address] methylPREDN 0 Yes 84mg Take 21 Uni vers ISolone 1-12 tablets by ity of (MEDROL, 00:00: mouth [place] JOSEPH,) 4 mg 00 SEE-INSTRU Med ical tablets CTIONS. Branch follow package directions methylPREDN Yes 84mg Take 21 Uni vers ISolone 1-12 tablets by ity of (MEDROL, 00:00: mouth [place] JOSEPH,) 4 mg 00 SEE-INSTRU Med ical tablets CTIONS. Branch follow package directions methylPREDN 0 Yes 84mg Take 21 Uni vers ISolone 1-12 tablets by ity of (MEDROL, 00:00: mouth [place] JOSEPH,) 4 mg 00 SEE-INSTRU Med ical tablets CTIONS. Branch follow package directions methylPREDN 0 Yes 84mg Take 21 Uni vers ISolone 1-12 tablets by ity of (MEDROL, 00:00: mouth [place] JOSEPH,) 4 mg 00 SEE-INSTRU Med ical tablets CTIONS. Branch follow package directions nabumetone 2015-05 Yes TK 1 T PO Un chris 750 mg 2-28 BID ity of tablet 00:00: [facility] nabumetone 2015-05 Yes TK 1 T PO Un chris 750 mg 2-28 BID [facility] T PO Un chris 750 mg 2-28 BID ity of tablet 00:00: [facility] nabumetone 2015-05 Yes TK 1 T PO Un chris 750 mg 2-28 BID ity of tablet 00:00: [facility] DEXILANT 60 2015-05 Yes TAKE ONE [...] 00:00: MOUTH ONE TIME DAILY Medical Branch RESTASIS 2015-05 Yes INT 1 GTT Univ ers 0.05 % 1-23 IN OU BID ity of ophthalmic 00:00: drops Medical Branch RESTASIS 2015-05 Yes INT 1 GTT Univ ers 0.05 % 1-23 IN OU BID ity of ophthalmic 00:00: drops Medical Branch RESTASIS 2015-05 Yes INT 1 GTT Univ ers 0.05 % 1-23 IN OU BID ity of ophthalmic 00:00: drops Medical Branch RESTASIS 2015-05 Yes INT 1 GTT Univ ers 0.05 % 1-23 IN OU BID ity of ophthalmic 00:00: drops Medical Branch Vitamin B Vitamin B No Vitamin B [...] MG MG 60 MG Synthroid Synthroid Yes GENERAL SERVICE TECHNICIAN 1 QD TAKE 1 UT 175 MCG 175 MCG TABLET Physici Oral Tablet Oral Tablet DAILY. ans Dexilant 60 Dexilant 60 Yes GENERAL SERVICE TECHNICIAN 1 QD TAKE 1 UT MG Oral MG Oral CAPSULE Physic i Capsule Capsule DAILY ans Delayed Delayed Release Release Calcium 600 Calcium 600 Yes GENERAL SERVICE TECHNICIAN 1 QD TAKE 1 UT MG Oral MG Oral TABLET Physici Tablet Tablet DAILY. ans Losartan Losartan Yes GENERAL SERVICE TECHNICIAN 1 QD TAKE 1 UT Potassium Potassium TABLET Phy sici TABS TABS DAILY. ans Vitamin D3 Vitamin D3 Yes GENERAL SERVICE TECHNICIAN 800 IU 2 X UT CAPS CAPS DAILY Physici ans L-Methylfol L-Methylfol Yes GENERAL SERVICE TECHNICIAN U T ate TABS ate TABS Physici ans Magnesium Magnesium Yes GENERAL SERVICE TECHNICIAN UT TABS TABS Physici ans Vascepa 1 Vascepa 1 Yes GENERAL SERVICE TECHNICIAN UT GM Oral GM Oral Physici Capsule Capsule ans Zyrtec TABS Zyrtec TABS Yes GENERAL SERVICE TECHNICIAN U T Physici ans Zinc 50 MG Zinc 50 MG Yes GENERAL SERVICE TECHNICIAN UT Oral Tablet Oral Tablet P hysici ans Myrbetriq Myrbetriq Yes GENERAL SERVICE TECHNICIAN 1 QD TAKE 1 UT 50 MG Oral 50 MG Oral TABLET P hysici Tablet Tablet DAILY ans Extended Extended Release 24 Release 24 Hour Hour Losartan Losartan No Losartan Potassium Potassium Potassium 25 MG 25 MG 25 MG Immunizations Ordered Filled Immunization Date Status Comments Sour e Immunization Name Name SARS-COV-2 COVID-19 2020-07-16 Completed Unive rsity of MODERNA VACCINE 00:00:00 [facility] SARS-COV-2 COVID-19 2020-06-18 Completed Unive rsity of MODERNA VACCINE 00:00:00 [facility] Vital Signs Vital Name Observation Time Observation Value Comments Source Systolic blood 2021-05-18 120 mm[Hg] [facility] pressure 14:52:00 Diastolic blood 2021-05-18 83 mm[Hg] [facility] pressure 14:52:00 Heart rate 2021-05-18 69 /min [facility] 14:52:00 Body temperature 2021-05-18 36.33 [place] [facility] 14:52:00 Body weight 2021-05-18 96.843 kg [facility] 14:52:00 BMI 2021-05-18 34.46 kg/m2 [facility] 14:52:00 Systolic blood 2022-04-27 133 mm[Hg] [facility] pressure 15:43:00 Diastolic blood 2022-04-27 82 mm[Hg] [facility] pressure 15:43:00 Heart rate 2022-04-27 82 /min [facility] 15:43:00 Body temperature 2022-04-27 36.61 [place] [facility] 15:43:00 Body weight 2022-04-27 105.189 kg [facility] 15:43:00 BMI 2022-04-27 37.43 kg/m2 [facility] 15:43:00 Systolic blood 2021-12-25 115 mm[Hg] [facility] pressure 18:50:00 Diastolic blood 2021-12-25 79 mm[Hg] [facility] pressure 18:50:00 Heart rate 2021-12-25 76 /min [facility] 18:50:00 Body weight 2021-12-25 102.649 kg [facility] 18:50:00 BMI 2021-12-25 36.53 kg/m2 [facility] 18:50:00 height 2021-11-20 66 [in_i] [facility] 10:00:00 [facility] weight 2021-11-20 222 [lb_av] [facility] - 10:00:00 [facility] bmi 2021-11-20 35.83 kg/m2 [facility] - 10:00:00 [facility] blood pressure 2021-11-20 128 mm[Hg] [facility] - systolic 10:00:00 [facility] blood pressure 2021-11-20 70 mm[Hg] [facility] - diastolic 10:00:00 [facility] Systolic blood 2021-08-17 127 mm[Hg] [facility] pressure 16:47:00 Diastolic blood 2021-08-17 85 mm[Hg] [facility] pressure 16:47:00 Heart rate 2021-08-17 76 /min [facility] 16:47:00 Body temperature 2021-08-17 35.5 [place] [facility] 16:47:00 Body weight 2021-08-17 99.066 kg [facility] 16:47:00 BMI 2021-08-17 35.25 kg/m2 [facility] 16:47:00 Systolic blood 2021-05-18 120 mm[Hg] [facility] pressure 14:52:00 Diastolic blood 2021-05-18 83 mm[Hg] [facility] pressure 14:52:00 Heart rate 2021-05-18 69 /min [facility] 14:52:00 Body temperature 2021-05-18 36.33 [place] [facility] 14:52:00 Body weight 2021-05-18 96.843 kg [facility] 14:52:00 BMI 2021-05-18 34.46 kg/m2 [facility] 14:52:00 Systolic blood 2022-03-13 126 mm[Hg] [facility] pressure 14:08:00 Hospital Diastolic blood 2022-03-13 63 mm[Hg] [facility] pressure 14:08:00 Hospital Heart rate 2022-03-13 85 /min [facility] 14:08:00 Hospital Body height 2022-03-13 167.6 cm [facility] 14:08:00 Hospital Body weight 2022-03-13 104.327 kg [facility] 14:08:00 [facility] BMI 2022-03-13 37.12 kg/m2 [facility] 14:08:00 Hospital Oxygen saturation 2022-03-13 97 /min [facility] in Arterial blood 14:08:00 Hospital by Pulse oximetry Body temperature 2020-07-13 97.3 [degF] [facility] 09:14:00 Heart Rate 2020-07-13 90 /min [facility] 09:14:00 Systolic blood 2020-07-13 121 mm[Hg] Location: RUE; [facility] pressure 09:14:00 Position: Sitting Diastolic blood 2020-07-13 90 mm[Hg] Location: RUE; [facility] pressure 09:14:00 Position: Sitting Weight 2020-07-13 251 [lb_av] [facility] 09:14:00 Body mass index 2020-07-13 40.51 kg/m2 [facility] (BMI) [Ratio] 09:14:00 Systolic blood 2020-03-09 131 mm[Hg] Location: RUE; [facility] pressure 11:18:00 Position: Sitting Diastolic blood 2020-03-09 87 mm[Hg] Location: RUE; [facility] pressure 11:18:00 Position: Sitting Weight 2020-03-09 251.375 [lb_av] [facility] 11:18:00 Body mass index 2020-03-09 40.57 kg/m2 [facility] (BMI) [Ratio] 11:18:00 Body temperature 2020-03-09 97.4 [degF] [facility] 11:18:00 Heart Rate 2020-03-09 79 /min [facility] 11:18:00 Systolic blood 2019-12-09 136 mm[Hg] Location: RUE; [facility] pressure 13:27:00 Position: Sitting Diastolic blood 2019-12-09 87 mm[Hg] Location: RUE; [facility] pressure 13:27:00 Position: Sitting Weight 2019-12-09 250.4375 [lb_av] [facility] 13:27:00 Body mass index 2019-12-09 40.42 kg/m2 [facility] (BMI) [Ratio] 13:27:00 Body temperature 2019-12-09 97 [degF] [facility] 13:27:00 Heart Rate 2019-12-09 84 /min [facility] 13:27:00 BP Systolic 2019-05-27 125 mm[Hg] Location: LUE; [facility] 10:09:00 Position: Sitting BP Diastolic 2019-05-27 81 mm[Hg] Location: LUE; [facility] 10:09:00 Position: Sitting Weight 2019-05-27 242.4375 [lb_av] [facility] 10:09:00 Body Mass Index 2019-05-27 39.13 kg/m2 [facility] Calculated 10:09:00 Heart Rate 2019-05-27 73 /min [facility] 10:09:00 BP Systolic 2019-03-26 125 mm[Hg] Location: LUE; [facility] 16:11:00 Position: Sitting BP Diastolic 2019-03-26 82 mm[Hg] Location: LUE; [facility] 16:11:00 Position: Sitting Weight 2019-03-26 242 [lb_av] [facility] 16:11:00 Body Mass Index 2019-03-26 39.06 kg/m2 [facility] Calculated 16:11:00 Heart Rate 2019-03-26 75 /min Location: L [facility] 16:11:00 Carotid; BP Systolic 2019-01-21 118 mm[Hg] Location: LUE; [facility] 09:19:00 Position: Sitting BP Diastolic 2019-01-21 79 mm[Hg] Location: LUE; [facility] 09:19:00 Position: Sitting Weight 2019-01-21 237.1875 [lb_av] [facility] 09:19:00 Body Mass Index 2019-01-21 38.28 kg/m2 [facility] Calculated 09:19:00 Heart Rate 2019-01-21 73 /min Location: L [facility] 09:19:00 Carotid; BP Systolic 2018-07-23 112 mm[Hg] Location: LUE; [facility] 09:00:00 Position: Sitting BP Diastolic 2018-07-23 76 mm[Hg] Location: LUE; [facility] 09:00:00 Position: Sitting Weight 2018-07-23 219.1875 [lb_av] [facility] 09:00:00 Body Mass Index 2018-07-23 35.38 kg/m2 [facility] Calculated 09:00:00 Heart Rate 2018-07-23 71 /min Location: L [facility] 09:00:00 Carotid; BP Systolic 2018-01-22 116 mm[Hg] Location: RUE; [facility] 13:18:00 Position: Sitting BP Diastolic 2018-01-22 77 mm[Hg] Location: RUE; [facility] 13:18:00 Position: Sitting Height 2018-01-22 66 [in_us] [facility] 13:18:00 Weight 2018-01-22 220.4375 [lb_av] [facility] 13:18:00 Body Mass Index 2018-01-22 35.58 kg/m2 [facility] Calculated 13:18:00 Heart Rate 2018-01-22 72 /min Location: R [facility] 13:18:00 Radial; BP Systolic 2017-07-05 112 mm[Hg] Location: LUE; [facility] 11:59:00 Position: Sitting BP Diastolic 2017-07-05 76 mm[Hg] Location: LUE; [facility] 11:59:00 Position: Sitting Weight 2017-07-05 246.4375 [lb_av] [facility] 11:59:00 Body Mass Index 2017-07-05 39.78 kg/m2 [facility] Calculated 11:59:00 Heart Rate 2017-07-05 89 /min Location: L [facility] 11:59:00 Radial; Procedures Procedure Date / Time Performing Clinician Source Performed ECG 12-LEAD 2022-03-13 14:14:23 Bolivar Portillo spital [QL] C-REACTIVE PROTEIN 2020-07-13 00:00:00 [facility] [QL] CBC (INCLUDES 2020-07-13 00:00:00 [facility] DIFF/PLT) [QL] CMP W/EGFR 2020-07-13 00:00:00 [facility] [QL] SED RATE BY MODIFIED 2020-07-13 00:00:00 [facility] EMANI [QL] LIPID PANEL 2020-07-13 00:00:00 [facility] XRAY Hand AP lateral 2020-07-13 00:00:00 [facility] oblique Bilateral [id number] XRAY Foot 3 views 2020-07-13 00:00:00 [facility] Bilateral [id number] [QL] C-REACTIVE PROTEIN 2020-03-09 00:00:00 [facility] [QL] CBC (INCLUDES 2020-03-09 00:00:00 [facility] DIFF/PLT) [QL] CMP W/EGFR 2020-03-09 00:00:00 [facility] [QL] SED RATE BY MODIFIED 2020-03-09 00:00:00 [facility] WESTERGREN [QL] QUANTIFERON(R)-TB 2020-03-09 00:00:00 [facility] [...] BY MODIFIED 2018-01-22 00:00:00 [facility] WESTERGREN [QLH] CBC (INCLUDES 2017-07-05 00:00:00 [facility] [...] Planned Date Details Comments Source Future Scheduled 2022-07-25 Hepatitis C screening [facility] Test 13:03:38 (procedure) [code = 006792210] Future Scheduled 2022-07-25 BREAST CANCER [facility] Test 13:03:38 SCREENING [code = BREAST CANCER SCREENING] Future Scheduled 2022-07-25 COLONOSCOPY SCREENING [facility] Test 13:03:38 [code = COLONOSCOPY SCREENING] Future Scheduled 2022-07-25 SHINGLES VACCINES (1 Met [facility] Test 13:03:38 of 2) [code = SHINGLES VACCINES (1 of 2)] Future Scheduled 2022-07-25 HEPATITIS B VACCINES Met [facility] Test 13:03:38 (1 of 3 - Risk 3-dose series) [code = HEPATITIS B VACCINES (1 of 3 - Risk 3-dose series)] Future Scheduled 2022-07-25 65+ PNEUMOCOCCAL [facility] Test 13:03:38 VACCINE (1 - PCV) [code = 65+ PNEUMOCOCCAL VACCINE (1 - PCV)] Future Scheduled 2022-07-25 COVID-19 VACCINE (3 - Me [facility] Test 13:03:38 Booster for Moderna series) [code = COVID-19 VACCINE (3 - Booster for Moderna series)] Future Scheduled 2022-07-25 INFLUENZA VACCINE Method [facility] Test 13:03:38 [code = INFLUENZA VACCINE] Future Scheduled 2022-06-23 Hepatitis C screening [facility] Test 11:53:26 (procedure) [code = 144761834] Future Scheduled 2022-06-23 BREAST CANCER [facility] Test 11:53:26 SCREENING [code = BREAST CANCER SCREENING] Future Scheduled 2022-06-23 COLONOSCOPY SCREENING [facility] Test 11:53:26 [code = COLONOSCOPY SCREENING] Future Scheduled 2022-06-23 SHINGLES VACCINES (1 Met [facility] Test 11:53:26 of 2) [code = SHINGLES VACCINES (1 of 2)] Future Scheduled 2022-06-23 HEPATITIS B VACCINES Met [facility] Test 11:53:26 (1 of 3 - Risk 3-dose series) [code = HEPATITIS B VACCINES (1 of 3 - Risk 3-dose series)] Future Scheduled 2022-06-23 65+ [facility]OCOCCAL [facility] Test 11:53:26 VACCINE (1 - PCV) [code = 65+ PNEUMOCOCCAL VACCINE (1 - PCV)] Future Scheduled 2022-06-23 COVID-19 VACCINE (3 - [facility] Test 11:53:26 Booster for Moderna series) [code = COVID-19 VACCINE (3 - Booster for Moderna series)] Future Scheduled 2022-06-23 INFLUENZA VACCINE Method [facility] Test 11:53:26 [code = INFLUENZA VACCINE] Encounters Start End Encounter Admission Attending Care Care Encounter Source Date/Time Date/Time Type Type Clinicians Facility Department ID 2022-04-27 Outpatient [facility] [id number] [place] 15:30:31 [id number] [facility] 2021-11-23 Outpatient FLORA Ibarra [facility] [id number] Common 09:41:[address] [facility] 2020-11-10 [facility] [id number] [place] 10:04:11 [facility] 2022-08-30 2022-08-30 Outpatient ANA [facility] [id number] [place] 10:30:00 10:30:00 MYRTLE torres 2022-04-27 2022-04-27 Office HARSH Perez 6410 1.2.840.114 [id number] [place] 10:00:00 10:31:[address] [id number] Health 9.2.7.2.686 [id number] 9 2022-03-13 2022-03-13 Office Portillo, 1.2.840.1 [id number] Methodi 09:00:00 14:58:06 Visit Bolivar Grissom [address]71.1.[address] 3.430.2.7 Hospit a .3.990112 l .8 2022-03-13 2022-03-13 Office Elisa, 1.2.840.1 [id number] Methodi 09:00:00 14:58:06 Visit Bolivar Grissom 38273.1.[address] 3.430.2.7 Hospit a .3.296624 l .8 2022-03-13 2022-03-13 Travel 1.2.840.1 1.2.020.764 [id number] Methodi 00:00:00 00:00:[address] 3.430.2.7 0.2.7.3.698 Ho spita .3.806595 084.8 l .8 2022-03-13 2022-03-13 Travel 1.2.840.1 1.2.747.865 [id number] Methodi 00:00:00 00:00:[address] 3.430.2.7 0.2.7.3.698 Ho spita .3.929716 084.8 l .8 2021-12-25 2021-12-25 Office HARSH Perez 6410 1.2.840.114 [id number] [place] 13:30:00 14:15:[address] 350.1.13.58 Health 9.2.7.2.686 [id number] 2021-12-22 2021-12-22 Outpatient ANA [facility] [id number] [place] 10:00:00 10:00:00 MYRTLE otrres 2021-11-20 2021-11-20 OFFICE [facility] [id number] Co mmon 00:00:00 00:00:00 VISIT NEW [facility] it PT LEVEL [address] [facility] 2021-11-12 2021-11-12 Telephone ChenchoPaul bricekayla HOUSE 6410 1.2.840 .114 [id number] [place] 00:00:00 00:00:[address] 350.1.13.58 Health 9.2.7.2.686 [id number] 2021-08-17 2021-08-17 Office HARSH Perez 6410 1.2.840.114 [id number] [place] 11:30:00 12:16:[address] 350.1.13.58 Health 9.2.7.2.686 [id number] 9 2021-05-18 2021-05-18 Office HARSH Perez 6410 1.2.840.114 [id number] [place] 09:00:00 09:29:[address] 350.1.13.58 Health 9.2.7.2.686 [id number] 9 2021-04-24 2021-04-24 Refill HARSH Perez 6410 1.2.840.114 [id number] [place] 00:00:00 00:00:[address] 350.1.13.58 Health 9.2.7.2.686 [id number] 9 2021-03-14 2021-03-14 Outpatient ELISA [facility] [id number] [place] 00:00:00 00:00:00 BOLIVAR Ignacio [facility] 2021-02-28 2021-02-28 Telephone HARSH Perez 6410 1.2.840.114 [id number] [place] 00:00:00 00:00:[address] 350.1.13.58 Health 9.2.7.2.686 [id number] 9 2021-01-31 2021-01-31 Outpatient CRISTOBAL [facility] [id number] [place] 00:00:00 00:00:00 SEAN Cody [facility] 2021-01-09 2021-01-09 Outpatient R BLEEN [facility] [id number] Univers 10:00:00 10:00:00 HILDA mercado [facility] 2021-01-09 2021-01-09 Laboratory Only, Ang Db Test [facility] 1.2.8 40.114 [id number] Univers 09:32:45 09:47:45 Only Hilda Glover [facility] 350.1.13.10 [place] 4.2.7.2.686 Naveed as Chang?Blea [id number] [address] Medical Office [facility] 2020-11-25 2020-11-25 Telephone Paul Paiza [facility] 6410 1.2.840 .114 [id number] [place] 00:00:00 00:00:[address] 350.1.13.58 Health 9.2.7.2.686 [id number] 9 2020-11-25 2020-11-25 Telephone Chencho, [facility] 6410 1.2.840.114 [id number] 00:00:00 00:00:[address] 350.1.13.58 9.2.7.2.686 [id number] 9 2020-11-16 2020-11-16 Telephone KingstonRosa norris [facility] 6410 1.2.840.1 [id number] [place] 00:00:00 00:00:[address] 350.1.13.58 Health 9.2.7.2.686 [id number] 9 2020-11-16 2020-11-16 Telephone Kingston, [facility] 6410 1.2.840.114 [id number] 00:00:00 00:00:[address] 350.1.13.58 9.2.7.2.686 [id number] 9 2020-11-10 2020-11-10 Office Ana HARSH 6410 1.2.840.114 [id number] [place] 09:11:30 10:04:04 Visit Myrtle PISANO 350.1.13.58 Health 9.2.7.2.686 [id number] 9 2020-11-10 2020-11-10 Office HARSH Perez 6410 1.2.840.114 [id number] 09:11:30 10:04:04 Visit Myrtle ALVARENGA 350.1.13.58 9.2.7.2.686 [id number] 9 2020-07-16 2020-07-16 Outpatient [facility] [id number] Univers 11:35:00 11:35:00 ity [facility] 2020-07-13 2020-07-13 Appointmen HARSH PEREZ Rheumatolog [id number] [place] 09:30:00 09:30:00 t; MYRTLE PEREZ y P hysici COURTNEY, M.D. ans M.D. 2020-06-18 2020-06-18 Outpatient [facility] [id number] Univers 11:50:00 11:50:00 [facility] 2020-06-11 2020-06-11 Laboratory Lab, [facility] 1.2. 840.114 [id number] Univers 10:23:39 10:43:39 [facility] 350.1.13.10 [facility] 4.2.7.2.686 Naveed as Professio [id number] Ne dical [address] Office [address] 2020-06-11 2020-06-11 Outpatient Alena SINGH [facility] [id number] Univers 10:40:00 10:40:00 [facility] 2020-03-15 2020-03-15 Outpatient ELISA [facility] [id number] [place] 00:00:00 00:00:00 BOLIVAR [address] 2020-03-09 2020-03-09 AppointHARSH Hogan Rheumatolog [id number] [place] 11:00:00 11:00:00 t; MYRTLE PEREZ y P hysici COURTNEY, M.D. ans M.D. 2020-01-21 2020-01-21 Outpatient R CEDRICK [facility] [id number] Univers 18:20:00 18:20:00 LOVE hollis [facility] 2020-01-21 2020-01-21 Laboratory Lab, [facility] 12. 840.114 [id number] [facility] 17:49:06 18:09:06 Only Love Davidson 350.1.13.10 ity of [place] 4.2.7.2.686 Naveed as Professio [id number] Ne dical nal [address] [place] [address] 2019-12-09 2019-12-09 HARSH [place] [facility] [id number] [place] 10:30:00 10:30:00 t; MYRTLE PEREZ Medicine - Physici COURTNEY, M.D. [facility] 2019-11-16 2019-11-16 Laboratory Lab, [facility] 1.2. 840.114 [id number] [facility] 13:56:36 14:16:36 Only Lindy Singh 350.1.13.10 ity of [place] 4.2.7.2.686 Naveed as Professio [id number] Ne dical nal [address] [place] [address] 2019-11-16 2019-11-16 Outpatient R SAMANTHA [facility] [id number] Univers 14:00:00 14:00:00 LINDY telma [facility] 2019-09-03 2019-09-03 HARSH [place] [facility] [id number] [place] 10:30:00 10:30:00 t; MYRTLE PEREZ y P hysici COURTNEY, M.D. ans M.D. 2019-05-27 2019-05-27 HARSH [place] [facility] [id number] [place] 10:00:00 10:00:00 t; MYRTLE PEREZ y P hysici COURTNEY, M.D. ans M.D. 2019-03-26 2019-03-26 HARSH [place] [facility] [id number] [place] 15:00:00 15:00:00 t; MYRTLE PEREZ y P hysici COURTNEY, M.D. ans M.DBienvenido 2019-01-21 2019-01-21 [facility] [id number] [place] 09:00:00 09:00:00 t; MYRTLE PEREZ y P hysici COURTNEY, M.D. ans M.DBienvenido 2018-07-23 2018-07-23 [facility] [id number] [place] 09:00:00 09:00:00 t; MYRTLE PEREZ y P hysici COURTNEY, M.D. ans M.DBienvenido 2018-01-22 2018-01-22 [facility] [id number] [place] 12:30:00 12:30:00 t; MYRTLE PEREZ y P hysici COURTNEY, M.D. ans M.DBienvenido 2018-01-01 2018-01-01 Chaitanya [facility] [id number] [place] 10:30:00 10:30:00 t; MYRTLE PEREZ P hysici COURTNEY, M.D. ans M.DBienvenido 2017-12-18 2017-12-18 Chaitanya P[facility] [id number] [place] 09:30:00 09:30:00 t; MYRTLE PEREZ P hysici COURTNEY, M.D. ans M.DBienvenido 2017-12-18 2017-12-18 [place] [facility] [id number] [place] 09:30:00 09:30:00 t; MYRTLE PEREZ P hysici COURTNEY, M.D. ans M.DBienvenido 2017-12-13 2017-12-13 [place] [facility] [id number] [place] 10:30:00 10:30:00 t; MYRTLE PEREZ P hysici COURTNEY, M.D. ans M.DBienvenido 2017-07-05 2017-07-05 [place] [facility] [id number] [place] 12:00:00 12:00:00 t; MYRTLE PEREZ y P hysici COURTNEY, M.D. ans MPaual 2017-03-07 2017-03-07 Appointmen ANA [facility] [id number] [place] 10:30:00 10:30:00 t; MYRTLE PEREZ P hysici COURTNEY, M.D. ans M.D. 2017-01-24 2017-01-24 AppointHARSH [place] [facility] [id number] [place] 13:00:00 13:00:00 t; MYRTLE PEREZ P hysici COURTNEY, M.D. ans M.D. Results Test Description Test Time Test Comments Results Result Comments Source ECG 12 lead 2022-03-13 16:00:37 Test Item Value Reference Range Interpretation Comme nts Ventricular rate (test code = 253) 87 Atrial rate (test code = 255) 87 LA interval (test code = 266) 150 QRSD [...] of 14-MAR-2021 09:19,-No significant change was found- [facility] 12 [id number] 16:00:37 Test Item Value Reference Range Interpretation Comments Ventricular rate (test 87 code = 253) Atrial rate (test code 87 = 255) LA interval (test code 150 = 266) QRSD interval (test 92 code = 260) QT interval (test code 366 = 264) QTC interval (test code 440 = 265) P axis 1 (test code = 69 267) QRS axis 1 (test code = 14 268) T wave axis (test code 48 = 270) EKG impression (test Normal sinus code = 273) rhythm-Normal ECG-In automated comparison with ECG of 14-MAR-2021 09:19,-No significant change was found- [facility] Bilateral [id number] 12:25:00EXAM: XR BILATERAL HAND 4 VIEWSDATE: 07/13/2020 12:12 CSTINDICATION: - L40.50 Arthropathic psoriasis, unspecifiedCOMPARISON: 01/24/2017.TECHNIQUE: PA, [place], lateral and oblique radiographs of the bilateralhands.FINDINGS: No acute fracture or malalignment is identified. Mild scatteredosteoarthrosis ofthe bilateral IP joints again noted. Mild left triscaphejoint space narrowing.No erosions or periostitis identified.No soft tissue abnormality is identified.IMPRESSION:1. No radiographic evidence of inflammatory arthropathy.2. 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 Ihave personallyreviewed the images as well as the interpretation and agree with the findings.Read by: Shimon Corea MD Resident/Fellow/PhysicianAssistant: Shimon Corea MDDictated Date/time: 07/13/20 13:33Electronically Signed by: Jamal Boyer MD 07/14/2115:11FINAL REPORTUT PhysiciansXRAY Foot 3 views Bilateral [id number] 12:25:00EXAM: XR BILATERAL FOOT 3 VIEWSDATE: 07/13/2020 [...] of inflammatoryarthropathy.--This report was dictated by a Rn Research/Fellow/Physician News Commentator. Ihave personallyreviewed the images as well as [...] range (test code = <100 mg/[place] [address]-3) primary prevent ion; <70 mg/dL for patients with C HD or diabetic patien ts with > or = 2 C HD risk factors. L DL-C is now calculat ed using the Angelia calculation, wh ich is a validated novel method providin g better accuracy than the Friedewald equation in the estimation of L DL-C. Michael SS et al . GIOVANY. 2013;310( 19): 2248-1317 (http://educati on.Jounce estGr[employer]. com/f aq/QVZ738) CHOL/HDLC RATIO 3.4 {CALC} <5.0 N (test code = CHOL/HDLC RATIO) NON HDL CHOLESTEROL 127 {MG/DL <130 N For porfirio ents with (test code = NON HDL IBETH} diabete s plus 1 CHOLESTEROL) major ASCVD ris k factor, treatin g to a non-HDL-C goa l of <100 mg/dL (LDL -C of <70 mg/dL) is considered a therapeutic opt ion. [facility][QL] CMP [id number] 11:02:00 Test Item Value Reference Range Interpretation [...] NON-AFR. 75 {ML/MIN/1.7} See_Comment N [Automated message] [place] (test The system ich code = eGFR generated this result NON-AFR. transmitted ref erence [place]) range: > OR = 6 0. The reference range was not used to int erpret this result as normal/abnormal . eGFR 86 {ML/MIN/1.7} See_Comment N [Automated message] [place] (test The system ich code = eGFR [...] mg/dl 0.2-1.2 N Normal (test code = 54844-0) ALKALINE 105 u/l 37-153 N PHOSPHATASE (test code = ALKALINE PHOSPHATASE) AST; Normal (test 20 u/l 10-35 N code = 1916-6) ALT; Normal (test 24 u/l 6-29 N code = 1742-6) [facility][QL] SED RATE BY MODIFIED [id number] 11:02:00 Test Item Value Reference Range Interpretation Comments SED RATE BY MODIFIED 14 mm/h See_Comment N [Autom ated message] EMANI (test code = The system which SED RATE BY MODIFIED generat ed this result EMANI) transmitted ref erence range: < OR = 3 0. The reference range was not used to interpr et this result as normal/abnormal . [facility][QL] CBC (INCLUDES DIFF/PLT)2020-07-13 11:02:00 Test Item Value Reference Range Interpretation Comments WHITE BLOOD CELL COUNT 6.6 {Thousand/u} 3.8-10.8 N (test code = WHITE BLOOD CELL COUNT) RED BLOOD CELL COUNT (test 4.31 {Million/uL} 3.80-5.10 N code = RED BLOOD CELL COUNT) HEMOGLOBIN; Normal (test 13.8 g/dl 11.7-15.5 N code = 32769-4) HEMATOCRIT; Normal (test 40.8 % 35.0-45.0 N code = 4544-3) MCV; Normal (test code = 94.7 fL 80.0-100.0 N 787-2) MCHC; Normal (test code = 33.8 g/dl 32.0-36.0 N 68474-0) RDW; Normal (test code = 12.7 % 11.0-15.0 N 788-0) PLATELET COUNT; Normal 275 {Thousand/u} 140-400 N (test code = 777-3) MPV; Normal (test code = 10.2 fL 7.5-12.5 N 91733-3) ABSOLUTE NEUTROPHILS (test 3742 {cells/uL} 5480-5094 N code = ABSOLUTE NEUTROPHILS) ABSOLUTE LYMPHOCYTES [...] Normal (test 8.7 % N code = 27269-6) EOSINOPHILS; Normal (test 1.4 % N code = 29580-8) BASOPHILS; Normal (test 0.5 % N code = 07075-0) [facility][QL] C-REACTIVE [id number] 11:02:00 Test Item Value Reference Range Interpretation Comments C-REACTIVE PROTEIN (test code = 4.4 mg/L <8.0 N C-REACTIVE PROTEIN) REPORT COMMENT:FASTING:[facility][QL] CMP [id number] 15:06:00 Test Item Value Reference Range Interpretation [...] 73 {ML/MIN/1.7} > OR = 60 N [place] (test code = eGFR NON-AFR. [place]) eGFR 85 {ML/MIN/1.7} > OR = 60 N [place] (test code = eGFR ) BUN/CREATININE NOT [...] mg/dl 0.2-1.2 N Normal (test code = 41908-5) ALKALINE 76 u/l 37-153 N PHOSPHATASE (test code = ALKALINE PHOSPHATASE) AST; Normal (test 24 u/l 10-35 N code = 1916-6) ALT; Above High 30 u/l 6-29 Threshold (test code = 1742-6) [facility][QL] SED RATE BY MODIFIED [id number] 15:06:00 Test Item Value Reference Range Interpretation Comments SED RATE BY MODIFIED WESTERGREN (test 9 mm/h < OR = 30 N code = SED RATE BY MODIFIED WESTERGREN) [facility][QL] CBC (INCLUDES DIFF/PLT)2020-04-15 15:06:00 Test Item Value Reference Range Interpretation Comments WHITE BLOOD CELL COUNT 7.8 {Thousand/u} 3.8-10.8 N (test code = WHITE BLOOD CELL COUNT) RED BLOOD CELL COUNT (test 4.07 {Million/uL} 3.80-5.10 N code = RED BLOOD CELL COUNT) HEMOGLOBIN; Normal (test 13.0 g/dl 11.7-15.5 N code = 29078-7) HEMATOCRIT; Normal (test 39.0 % 35.0-45.0 N code = 4544-3) MCV; Normal (test code = 95.8 fL 80.0-100.0 N 787-2) MCHC; Normal (test code = 33.3 g/dl 32.0-36.0 N 69964-2) RDW; Normal (test code = 12.6 % 11.0-15.0 N 788-0) PLATELET COUNT; Normal 277 {Thousand/u} 140-400 N (test code = 777-3) MPV; Normal (test code = 10.8 fL 7.5-12.5 N 56722-8) ABSOLUTE NEUTROPHILS (test 4992 {cells/uL} 5152-7900 N code = ABSOLUTE NEUTROPHILS) ABSOLUTE LYMPHOCYTES [...] Normal (test 9.7 % N code = 26452-7) EOSINOPHILS; Normal (test 1.5 % N code = 84805-2) BASOPHILS; Normal (test 0.4 % N code = 07434-4) [facility][QL] C-REACTIVE [id number] 15:06:00 Test Item Value Reference Range Interpretation Comments C-REACTIVE PROTEIN (test code = 7.1 mg/L <8.0 N C-REACTIVE PROTEIN) [facility][Q] QUANTIFERON( R)-TB GOLD PLUS, 1 [id number] 15:06:00 Test Item Value Reference Range Interpretation [...] For additional info rmation, please refer tohttps://educa tion.[employer].Allovue/f aq/RFE765(Th is link is leslie g provided for informational/e ducational purposes only.) [facility][QL] CMP [id number] 11:28:00 Test Item Value Reference Range Interpretation [...] 65 {ML/MIN/1.7} > OR = 60 N [place] (test code = eGFR NON-AFR. [place]) eGFR 76 {ML/MIN/1.7} > OR = 60 N [place] (test code = eGFR ) BUN/CREATININE NOT [...] mg/dl 0.2-1.2 N Normal (test code = 50223-4) ALKALINE 75 u/l 37-153 N PHOSPHATASE (test code = ALKALINE PHOSPHATASE) AST; Normal (test 22 u/l 10-35 N code = 1916-6) ALT; Normal (test 26 u/l 6-29 N code = 1742-6) [facility][QL] SED RATE BY MODIFIED [id number] 11:28:00 Test Item Value Reference Range Interpretation Comments SED RATE BY MODIFIED WESTERGREN (test 6 mm/h < OR = 30 N code = SED RATE BY MODIFIED WESTERGREN) [facility][QL] CBC (INCLUDES DIFF/PLT)2020-01-16 11:28:00 Test Item Value Reference Range Interpretation Comments WHITE BLOOD CELL COUNT 7.1 {Thousand/u} 3.8-10.8 N (test code = WHITE BLOOD CELL COUNT) RED BLOOD CELL COUNT (test 4.28 {Million/uL} 3.80-5.10 N code = RED BLOOD CELL COUNT) HEMOGLOBIN; Normal (test 13.5 g/dl 11.7-15.5 N code = 84576-7) HEMATOCRIT; Normal (test 40.8 % 35.0-45.0 N code = 4544-3) MCV; Normal (test code = 95.3 fL 80.0-100.0 N 787-2) MCHC; Normal (test code = 33.1 g/dl 32.0-36.0 N 93585-1) RDW; Normal (test code = 12.8 % 11.0-15.0 N 788-0) PLATELET COUNT; Normal 256 {Thousand/u} 140-400 N (test code = 777-3) MPV; Normal (test code = 10.8 fL 7.5-12.5 N 68438-3) ABSOLUTE NEUTROPHILS (test 2904 {cells/uL} 1491-0155 N code = ABSOLUTE NEUTROPHILS) ABSOLUTE LYMPHOCYTES [...] Normal (test 8.1 % N code = 55352-9) EOSINOPHILS; Normal (test 2.5 % N code = 83266-4) BASOPHILS; Normal (test 0.7 % N code = 52336-8) [facility][QL] SJOGRENS ANTIBODIES (SS-A,SS-B)2020-01-16 11:28:00 Test Item Value Reference Range Interpretation Comments SJOGRENS ANTIBODY (SS-A) (test code <1.0 NEG <1.0 NEG N = SJOGRENS ANTIBODY (SS-A)) SJOGRENS ANTIBODY (SS-B) (test code <1.0 NEG <1.0 NEG N = SJOGRENS ANTIBODY (SS-B)) [facility][QL] C-REACTIVE [id number] 11:28:00 Test Item Value Reference Range Interpretation Comments C-REACTIVE PROTEIN (test code = 8.8 mg/L <8.0 C-REACTIVE PROTEIN) [facility][QLH] CMP [id number] 11:07:00 Test Item Value Reference Range Interpretation [...] 66 {ML/MIN/1.7} > OR = 60 N [place] (test code = eGFR NON-) eGFR 76 {ML/MIN/1.7} > OR = 60 N [place] (test code = eGFR ) BUN/CREATININE NOT [...] mg/dl 0.2-1.2 N Normal (test code = 14832-7) ALKALINE 91 u/l 33-130 N PHSPHATASE (test code = ALKALINE PHSPHATASE) AST; Normal (test 18 u/l 10-35 N code = 1916-6) ALT; Normal (test 20 u/l 6-29 N code = 1742-6) [facility]] SED RATE BY MODIFIED [id number] 11:07:00 Test Item Value Reference Range Interpretation Comments SED RATE BY MODIFIED WESTERGREN (test 9 mm/h < OR = 30 N code = SED RATE BY MODIFIED WESTERGREN) [facility]] CBC (INCLUDES DIFF/PLT)2019-05-27 11:07:00 Test Item Value Reference Range Interpretation Comments WHITE BLOOD CELL COUNT 7.7 {Thousand/u} 3.8-10.8 N (test code = WHITE BLOOD CELL COUNT) RED BLOOD CELL COUNT (test 4.50 {Million/uL} 3.80-5.10 N code = RED BLOOD CELL COUNT) HEMAGLOBIN; Normal (test 13.7 g/dl 11.7-15.5 N code = 45491-6) HEMATOCRIT; Normal (test 41.4 % 35.0-45.0 N code = 4544-3) MCV; Normal (test code = 92.0 fL 80.0-100.0 N 787-2) MCHC; Normal (test code = 33.1 g/dl 32.0-36.0 N 79271-2) RDW; Normal (test code = 12.2 % 11.0-15.0 N 788-0) PLATELET COUNT; Normal 284 {Thousand/u} 140-400 N (test code = 777-3) MPV; Normal (test code = 10.2 fL 7.5-12.5 N 14093-4) ABSOLUTE NEUTROPHILS (test 4027 {cells/uL} 8522-8788 N code = ABSOLUTE NEUTROPHILS) ABSOLUTE LYMPHOCYTES [...] Normal (test 8.3 % N code = 30050-0) EOSINOPHILS; Normal (test 3.1 % N code = 77434-7) BASOPHILS; Normal (test 0.6 % N code = 04807-9) [facility]] C-REACTIVE [id number] 11:07:00 Test Item Value Reference Range Interpretation Comments C-REACTIVE PROTEIN (test code = 6.3 mg/L <8.0 N C-REACTIVE PROTEIN) [facility]] HEPATITIS B CORE AB [id number] 11:07:00 Test Item Value Reference Range Interpretation Comments HEPATITIS B CORE AB TOTAL; NON-REACTIVE NON-REACTIVE N Normal (test code = 71581-1) [facility][] QUANTIFERON( R)-TB GOLD PLUS, 1 [id number] 11:07:00 Test Item Value Reference Range Interpretation [...] For additional info rmation, please refer tohttps://educa fidel.[employer].Allovue/f aq/HGJ470(Th is link is leslie rainey provided for informational/e ducational purposes only.) [facility]] CMP [id number] 09:31:00 Test Item Value Reference Range Interpretation [...] 92 {ML/MIN/1.7} > OR = 60 N [place] (test code = eGFR NON-) eGFR 106 {ML/MIN/1.7} > OR = 60 N [place] (test code = eGFR ) BUN/CREATININE NOT [...] mg/dl 0.2-1.2 N Normal (test code = 57273-8) ALKALINE 96 u/l 33-130 N PHSPHATASE (test code = ALKALINE PHSPHATASE) AST; Normal (test 19 u/l 10-35 N code = 1916-6) ALT; Normal (test 17 u/l 6-29 N code = 1742-6) [facility]] CBC (INCLUDES DIFF/PLT)2018-07-23 09:31:00 Test Item Value Reference Range Interpretation Comments WHITE BLOOD CELL COUNT 7.2 {Thousand/u} 3.8-10.8 N (test code = WHITE BLOOD CELL COUNT) RED BLOOD CELL COUNT (test 4.47 {Million/uL} 3.80-5.10 N code = RED BLOOD CELL COUNT) HEMAGLOBIN; Normal (test 14.3 g/dl 11.7-15.5 N code = 80379-5) HEMATOCRIT; Normal (test 42.0 % 35.0-45.0 N code = 4544-3) MCV; Normal (test code = 94.0 fL 80.0-100.0 N 787-2) MCHC; Normal (test code = 34.0 g/dl 32.0-36.0 N 54226-6) RDW; Normal (test code = 12.6 % 11.0-15.0 N 788-0) PLATELET COUNT; Normal 279 {Thousand/u} 140-400 N (test code = 777-3) MPV; Normal (test code = 10.8 fL 7.5-12.5 N 88161-9) ABSOLUTE NEUTROPHILS (test 3622 {cells/uL} 5329-0086 N code = ABSOLUTE NEUTROPHILS) ABSOLUTE LYMPHOCYTES [...] Normal (test 6.8 % N code = 27726-2) EOSINOPHILS; Normal (test 2.4 % N code = 01971-7) BASOPHILS; Normal (test 1.0 % N code = 14888-4) [facility]] CMP [id number] 07:10:00 Test Item Value Reference Range Interpretation [...] 88 {ML/MIN/1.7} > OR = 60 N [place] (test code = eGFR NON-) eGFR 102 {ML/MIN/1.7} > OR = 60 N [place] (test code = eGFR ) BUN/CREATININE NOT [...] mg/dl 0.2-1.2 N Normal (test code = 65143-6) ALKALINE 105 u/l 33-130 N PHSPHATASE (test code = ALKALINE PHSPHATASE) AST; Normal (test 17 u/l 10-35 N code = 1916-6) ALT; Normal (test 20 u/l 6-29 N code = 1742-6) [facility]] SED RATE BY MODIFIED [id number] 07:10:00 Test Item Value Reference Range Interpretation Comments SED RATE BY MODIFIED WESTERGREN (test 2 mm/h < OR = 30 N code = SED RATE BY MODIFIED WESTERGREN) [facility][QL] CBC (INCLUDES DIFF/PLT)2018-03-14 07:10:00 Test Item Value Reference Range Interpretation Comments WHITE BLOOD CELL COUNT 6.7 {Thousand/u} 3.8-10.8 N (test code = WHITE BLOOD CELL COUNT) RED BLOOD CELL COUNT (test 4.30 {Million/uL} 3.80-5.10 N code = RED BLOOD CELL COUNT) HEMAGLOBIN; Normal (test 13.3 g/dl 11.7-15.5 N code = 37361-0) HEMATOCRIT; Normal (test 39.8 % 35.0-45.0 N code = 4544-3) MCV; Normal (test code = 92.6 fL 80.0-100.0 N 787-2) MCHC; Normal (test code = 33.4 g/dl 32.0-36.0 N 39360-3) RDW; Normal (test code = 12.5 % 11.0-15.0 N 788-0) PLATELET COUNT; Normal 256 {Thousand/u} 140-400 N (test code = 777-3) MPV; Normal (test code = 10.3 fL 7.5-12.5 N 81644-3) ABSOLUTE NEUTROPHILS (test 3451 {cells/uL} 4573-2098 N code = ABSOLUTE NEUTROPHILS) ABSOLUTE LYMPHOCYTES [...] Normal (test 7.0 % N code = 21166-3) EOSINOPHILS; Normal (test 3.4 % N code = 04467-5) BASOPHILS; Normal (test 0.6 % N code = 69053-8) [facility]] C-REACTIVE [id number] 07:10:00 Test Item Value Reference Range Interpretation Comments C-REACTIVE PROTEIN (test code = 5.4 mg/L <8.0 N C-REACTIVE PROTEIN) [facility]] CMP [id number] 13:00:00 Test Item Value Reference Range Interpretation [...] 81 {ML/MIN/1.7} > OR = 60 N [place] (test code = eGFR NON-) eGFR 94 {ML/MIN/1.7} > OR = 60 N [place] (test code = eGFR ) BUN/CREATININE NOT [...] mg/dl 0.2-1.2 N Normal (test code = 90284-4) ALKALINE 101 u/l 33-130 N PHSPHATASE (test code = ALKALINE PHSPHATASE) AST; Normal (test 29 u/l 10-35 N code = 1916-6) ALT; Normal (test 26 u/l 6-29 N code = 1742-6) [facility]] CBC (INCLUDES DIFF/PLT)2017-07-05 13:00:00 Test Item Value Reference Range Interpretation Comments WHITE BLOOD CELL COUNT 5.9 {Thousand/u} 3.8-10.8 N (test code = WHITE BLOOD CELL COUNT) RED BLOOD CELL COUNT (test 4.63 {Million/uL} 3.80-5.10 N code = RED BLOOD CELL COUNT) HEMOGLOBIN; Normal (test 14.2 g/dl 11.7-15.5 N code = 64555-0) HEMATOCRIT; Normal (test 42.4 % 35.0-45.0 N code = 4544-3) MCV; Normal (test code = 91.6 fL 80.0-100.0 N 787-2) MCHC; Normal (test code = 33.5 g/dl 32.0-36.0 N 56950-5) RDW; Normal (test code = 12.7 % 11.0-15.0 N 788-0) PLATELET COUNT; Normal 264 {Thousand/u} 140-400 N (test code = 777-3) MPV; Normal (test code = 10.4 fL 7.5-12.5 N 56334-4) ABSOLUTE NEUTROPHILS (test 2655 {cells/uL} 6414-1405 N code = ABSOLUTE NEUTROPHILS) ABSOLUTE LYMPHOCYTES [...] Normal (test 7.6 % N code = 09921-1) EOSINOPHILS; Normal (test 3.2 % N code = 24507-9) BASOPHILS; Normal (test 0.7 % N code = 23329-7) [facility]] VITAMIN D, 25-HYDROXY, LC/MS/[id number] 13:00:00 Test Item Value Reference Range Interpretation [...] D, (D2,D3), LC/MS/MS is recommended: order code 54897 (pat ients >2yrs). For leslie solares information on this test, go to:[email or web address] parra.ques [email or web address] m/faq/FAQ 163(This link i s being provided for informational/e ducationa l purposes only .) [facility]
--- NOTE | 2022-07-29 13:38 | EDPHYS ---
Physician Documentation [facility] Name: Odette Aguilar Age: 72 yrs Sex: Female : 1950 Arrival Date: 07/29/2022 Time: 12:10 Bed 11 Private MD: Jose Ibarra B ED Physician Michele Harris Historical: - Allergies: 07/29 12:11 Cipro; ll1 12:11 Sulfa (Sulfonamide Antibiotics); ll1 - Immunization history:: Adult Immunizations up to date. - Social history:: Smoking status: Patient denies any tobacco usage or history of. Vital Signs: 12:17 BP 123 / 95; Pulse 82; Resp 18; Temp 98.1; Pulse Ox 99% on R/A; tm3 MDM: 13:37 Patient medically screened. kdr Administered Medications: No medications were administered Disposition Summary: 07/29/22 13:37 Discharge Ordered Location: Home kdr Problem: an ongoing problem kdr Symptoms: have improved kdr Condition: Stable kdr Diagnosis - Encounter for removal of sutures kdr Followup: kdr - With: Jose Ibarra MD - When: 2 - 3 days - Reason: Wound Recheck, Recheck today's complaints, Continuance of care, Re-evaluation by your physician Forms: - Medication Reconciliation Form kdr - Thank You Letter kdr - Antibiotic Education kdr - Prescription Opioid Use kdr Signatures: Michele Harris MD MD kdr Samuel Siddiqi RN RN jl7 Venessa Stanford RN RN ll1 Corrections: (The following items were deleted from the chart) 13:07 13:06 Home Meds: None; torsten jl7 13:07 13:06 PMHx: None; torsten [email or web address]
--- NOTE | 2022-07-29 13:38 | ER ---
Nurse's Notes [facility] Name: Odette Aguilar Age: 72 yrs Sex: Female : 1950 Arrival Date: 07/29/2022 Time: 12:10 Bed 11 Private MD: Jose Ibarra B Diagnosis: Encounter for removal of sutures Presentation: 07/29 12:12 Chief complaint: Patient states: Here for suture removal, placed 07/14/22. Coronavirus ll1 screen: Client denies travel out of the [place] in the last 14 days. At this time, the client does not indicate any symptoms associated with coronavirus-19. Ebola Screen: Patient denies travel to an Ebola-affected area in the 21 days before illness onset. Initial Sepsis Screen: Does the patient meet any 2 criteria? No. Patient's initial sepsis screen is negative. Does the patient have a suspected source of infection? Yes: Skin breakdown/wound. Risk Assessment: Do you want to hurt yourself or someone else? Patient reports no desire to harm self or others. Onset of symptoms was July 14, 2022. 12:12 Method Of Arrival: Ambulatory ll1 12:12 Acuity: PAULA 5 ll1 Triage Assessment: 12:13 General: Appears in no apparent distress. Behavior is calm, cooperative, appropriate ll1 for age. Pain: Denies pain. Derm: Reports needs stitches removed from L hand 2nd digit. Musculoskeletal: Circulation, motion, and sensation intact. Capillary refill < 3 seconds. Historical: - Allergies: 12:11 Cipro; ll1 12:11 Sulfa (Sulfonamide Antibiotics); ll1 - Immunization history:: Adult Immunizations up to date. - Social history:: Smoking status: Patient denies any tobacco usage or history of. Screenin:18 [facility] ED Fall Risk Assessment (Adult) Score/Fall Risk Level 0 - 2 = Low Risk ll1 Oriented to surroundings, Maintained a safe environment, Educated pt \T\ family on fall prevention, incl call for assistance when getting out of bed, Hourly rounding (assess needs \T\ fall precautionary measures) done. Abuse screen: Denies threats or abuse. Nutritional screening: No deficits noted. Tuberculosis screening: No symptoms or risk factors identified. Assessment: 13:25 Reassessment: No changes from previously documented assessment. Dr. Harris at . ll1 Vital Signs: 12:17 BP 123 / 95; Pulse 82; Resp 18; Temp 98.1; Pulse Ox 99% on R/A; tm3 ED Course: 12:10 Patient arrived in ED. am2 12:11 Jose Ibarra MD is Private Physician. am2 12:12 Triage completed. ll1 12:12 Arm band placed on Patient placed in an exam room, on a stretcher. ll1 12:18 Venessa Stanford, RN is Primary Nurse. ll1 12:32 Michele Harris MD is Attending Physician. kdr 13:36 Jose Ibarra MD is Referral Physician. kdr 13:36 Patient has correct armband on for positive identification. Bed in low position. Call ll1 light in reach. 13:36 No provider procedures requiring assistance completed. Patient did not have IV access ll1 during this emergency room visit. Administered Medications: No medications were administered Medication: 13:36 VIS not applicable for this client. ll1 Outcome: 13:37 Discharge ordered by . kdr Signatures: Rafiq Cevallos tm3 Michele Harris MD MD kdr Samuel Siddiqi RN RN jl7 Jessica Sloan am2 Venessa Stanford, RN RN ll1 Corrections: (The following items were deleted from the chart) 13:07 13:06 Home Meds: None; jlCesario jl7 13:07 13:06 PMHx: None; torsten jlCesario
== END 2022-07-29 13:52 | disposition home or self-care (01) ==
LOC: ER 12:09
DX: Z48.02 Encounter for removal of sutures (principal); Z88.2 Allergy status to sulfonamides; Z88.1 Allergy status to other antibiotic agents